=== PATIENT | female | born 1955 | race Caucasian/White ===

== ENCOUNTER 2023-08-13 07:37 | Day surgery (SDC) | payer MEDICARE, BC, SELFPAY ==
[2023-08-13] VITALS (23 sets, daily range): BP systolic 96–136; BP diastolic 52–90; PULSE 59–767; RESP 15–20; TEMP 35.8–36.8; O2SAT 90–100; BMI 23.3
[2023-08-13] MEDS: OXYCODONE (CR) 10 MG TAB.ER.12H PO (08:14)
[2023-08-13] MEDS: ACETAMINOPHEN 500 MG TABLET 1000 MG PO ×2 (08:14→15:44)
[2023-08-13] MEDS: SODIUM CHLORIDE 0.9 % (FLUSH) 10 ML SYRINGE IVF (08:30)
[2023-08-13] MEDS: LACTATED RINGERS 1000 ML 1,000 ML 100 ML IV ×2 (08:30→10:44)
[2023-08-13] MEDS: fentaNYL 100 MCG/2 ML inj IVP (09:13)
[2023-08-13] MEDS: MIDAZOLAM HCL 1 MG/ML inj IVP (09:13)
--- NOTE | 2023-08-13 09:22 | SUR.PREOP ---
TIME?OUT:?912 PT/RN/MDA?VERIFICATION?OF?SURGICAL?SITE,?PROCEDURE,?AND?CONSENT OBTAINED?PRIOR?TO?INVASIVE?PROCEDURE.
--- NOTE | 2023-08-13 09:28 | W.PM.H&PU ---
History & Physical Update History & Physical Update H&P Reviewed and patient assessed: No changes noted
[2023-08-13] MEDS: CEFAZOLIN 1 GM inj IVP (09:30)
--- NOTE | 2023-08-13 09:30 | XR_ITS ---
Patient: DOMINIC CHAVEZ Facility:?[facility] Patient ID:?[id number] Site Patient ID:?[id number]. Site :?[id number] Study:?XRay-Extremity Right KNEE 2V POST OP-08/13/2023 12:13:13 PM Ordering Physician:SHERON Final Report: Indication: POST OP Technique: Two views right knee Findings/Impression: Hardware from a right total knee arthroplasty is in satisfactory position. Bone alignment is normal. No sign of acute fracture. Postop changes are within normal limits. Dictated by Itz Almonte MD @ 08/13/2023 12:36:24 PM Signed by:?Itz Almonte MD @08/13/2023 12:36:24 PM (Electronic Signature)
[2023-08-13] MEDS: TRANEXAMIC ACID 100 MG/ML INJ 1000 MG IV (09:45)
--- NOTE | 2023-08-13 10:44 | W.PM.NB ---
Nerve Block Nerve Block Time Seen by Provider: 09:15 Date Seen: 08/13/23 Type of block requested by surgeon for post-operative analgesia: adductor canal Side: right Time out performed: Yes Verification of patient name: Yes Verification of date of : Yes Site marking: site marked Name of person performing procedure: Moises Continuous monitoring Was continuous monitoring of O2 sat, B/P, cardiac/vascular sonographer, recorded every 15 minutes?: Yes Procedure Checklist: sterile prep, needles and gloves Ultrasound guided. Images saved: Yes Medications given in 5ml increments after negative aspiration: Ropivicaine %: 0.5 mL: 20 Needle gauge: 20 Decadron (mg): 10 Precedex (mcg): 25 Patient tolerated procedure well: Yes Additional comments: Needle noted adjacent to nerve Block Charges Block Charge (with Pro Fee): Femoral Nerve Use of Ultrasound Machine for Block: Yes- US Guidance/pain block
--- NOTE | 2023-08-13 10:44 | W.PM.NB ---
Nerve Block Nerve Block Time Seen by Provider: 09:15 Date Seen: 08/13/23 Type of block requested by surgeon for post-operative analgesia: geniculars Side: right Time out performed: Yes Verification of patient name: Yes Verification of date of : Yes Site marking: site marked Name of person performing procedure: Moises Continuous monitoring Was continuous monitoring of O2 sat, B/P, cardiac cath technologist, recorded every 15 minutes?: Yes Procedure Checklist: sterile prep, needles and gloves Medications given in 5ml increments after negative aspiration: Ropivicaine %: 0.5 mL: 9 Needle gauge: 25 Patient tolerated procedure well: Yes Block Charges Block Charge (with Pro Fee): Genicular Nerve Block Use of Ultrasound Machine for Block: No
--- NOTE | 2023-08-13 11:11 | P.ORPRC_ITS ---
Procedure Note Date of procedure: 08/13/23 Procedure: PREOPERATIVE DIAGNOSIS: 1. Right knee osteoarthritis, primary, severe 2. Tobacco use POSTOPERATIVE DIAGNOSIS: 1. Right knee osteoarthritis, primary, severe 2. Tobacco use PROCEDURE: 1. Right total knee arthroplasty SURGEON: Alfredo Kenney MD. RISK ADJUSTMENT SPECIALIST: Colby ALARCON - Of note, a skilled floor covering printer assistant was critical for this case to aid in patient positioning, tissue retraction, limb manipulation/positioning, and closure. ANESTHESIA: Spinal anesthetic IMPLANTS: DePuy J&J all cemented TKA - Attune PS femur size 6 narrow, size 5 tibia, 5 poly spacer, 38 mm patella TOURNIQUET: 90 min at 300 torr EBL: 50 ml COMPLICATIONS: None evident INDICATIONS: The patient is a pleasant 67-year-old female who has experienced severe right knee pain and difficulty bearing weight. Workup included x-rays which revealed severe osteoarthrosis in the knee. Given the deformity, the dysfunction, and the pain, as well as the failure of nonoperative management, recommendation was made for surgery. FINDINGS: Full-thickness chondral loss diffusely throughout the right knee. The most severe was lateral compartment and secondarily medial and patellofemoral compartments. Large effusion upon entering joint. Pathologic popliteus tendon. Degenerative meniscus pathology both sides. Multiple loose bodies were seen. DESCRIPTION OF PROCEDURE: Following a thorough discussion of risks, benefits, and alternatives consent was obtained and the right knee was marked. The patient was brought to the operating room and placed supine on the operating table. Induction of anesthesia was undertaken. 2 g IV Ancef and 1 g tranexamic acid was administered within 1 hr of incision preoperatively. Proper time-out was performed identifying proper patient, site, procedure. The operative extremity was prepped and draped in the appropriate sterile fashion using ChloraPrep after the patient was positioned supine with all bony prominences well padded. A longitudinal, anterior, midline skin incision was made starting approximately 3cm proximal to the superior pole of the patella and advanced distal to the tibial tubercle. A median parapatellar arthrotomy was created. A medial subp eriosteal sleeve was created with knife, chaney elevator and curved osteotome. The retropatellar fatpad was resected and the synovium in the suprapatellar pouch excised to visualize the anterior femoral cortex. Femoral preparation was performed via an intramedullary guide. Step drill allowed access into the femoral canal. The distal cutting guide was placed with 6 ? of valgus and 11 mm cut on the distal femur. Femur was sized using a posterior referencing guide as well as assessing trans epicondylar access and Hope's line in 3? of external rotation. This found have a best fit with th e sizing noted above. The 4 in 1 cutting block was then placed, and the distal femur shaped accordingly. The box cut was then created and the trial implant inserted to confirm appropriate fit. We turned our attention to the proximal tibia. Extramedullary guide was utilized for cutting with the goal of being 90 degree cut from the mechanical axis of the tibia in the varus/valgus plane utilizing tibial crest as the primary alignment. Initially a 3 mm resection was performed from the medial tibial plateau. Ultimately, balancing was achieved in both flexion and extension in both varus and valgus. The knee was able to achieve full extension as well comfortably. The patella was initially measured and found have a thickness of 23 mm. It was resected back to approximately 14 mm. It was sized to be a best fit with as noted above. This was drilled, trial placed. All trials were placed and found to have an excellent stability and balance. At this stage, trial implants were removed, the knee was thoroughly irrigated with normal saline, and the cement was mixed. After irrigation, the knee was thoroughly dried, and cement placed, with the real tibial and femoral implants placed along with the patella. Trial poly spacer was placed and confirmed to have excellent range of motion and full extension, and the real poly spacer opened and inserted. All extra cement was removed, and a 3 min Betadine soak performed. Finally, a final irrigation round with normal saline was performed. Closure performed with 0 Vicryl and #0 Stratafix for the quad tendon/retinaculum. 2-0 Vicryl for the subcutaneous and 4-0 Stratafix for subcuticular closure. Dressings were applied and the patient was awoken from anesthesia after the tourniquet deflated and transferred the PACU in stable condition. A skilled floor covering printer assistant was critical for this case to aid in patient positioning, tissue retraction, bone exposure, limb manipulation/positioning, patient safety, and closure. PLAN: 1. Weight bear as tolerated operative extremity. 2. 23 hr perioperative antibiotics. 3. Ice. 4. PT/OT consults for ambulation assistance/mobility education. 5. Social work consult for discharge planning. 6. DVT prophylaxis with at SCDs, Bienvenido Hose, and aspirin twice daily.
--- NOTE | 2023-08-13 11:54 | W.ANESCHARGE ---
Anesthesia Charges Start Date/Time Anesthesia Start Date: 08/13/23 Anesthesia Start Time: 09:24 Stop Date/Time Anesthesia Stop Date: 08/13/23 Anesthesia Stop Time: 11:49
--- NOTE | 2023-08-13 12:22 | W.ANESCHARGE ---
Anesthesia Charges Start Date/Time Anesthesia Start Date: 08/13/23 Anesthesia Start Time: 09:24 Stop Date/Time Anesthesia Stop Date: 08/13/23 Anesthesia Stop Time: 11:49
--- NOTE | 2023-08-13 12:54 | P.IMCN_ITS ---
Date of Consult Patient: Zachary Patient Consult date: 08/13/23 Requesting Physician: Orthopedics Primary Care Provider: Melania Bishop, DO Consult Narrative Narrative: Shayy Hooker is a 67 year old female smoker admitted to the hospital for right total knee arthroplasty. Procedures performed on the day of admission by Dr. Kenney. There were no operative complications. Postoperatively she is feeling fine. She is having no pain and her spinal block appears to be in affect as she has no sensation or motion below the waist. She has no nausea or chills or dyspnea. Preoperatively she was doing well. She reports no problems identified on her preop physical. She had a normal electrocardiogram and a hemoglobin of 12.2. She has not had recent illness or injury. She does smoke at least a pack of cigarettes per day. She is no interested giving it up. She had would like to receive nicotine supplementation in the hospital until she can go home and smoke. She does not carry a diagnosis of COPD though likely has COPD. One and half years ago she had chest CT screening for lung cancer which was negative Review of Systems Narrative: She reports doing well other than her knee pain. No previous problems with anesthesia, bleeding, blood clots. Her chart indicates a allergy to cephalosporins. In reviewing this I note that many years ago she had hives from [facility]. She also received a sulfa medication with hives. Dilaudid caused nausea and vomiting [facility] Medical History (Updated 08/13/23 @ 13:05 by Eric Preciado MD) COPD (chronic obstructive pulmonary disease) ?J44.9 - Chronic obstructive pulmonary disease, unspecified (ICD-10) Multiple thyroid nodules ?E04.2 - Nontoxic multinodular goiter (ICD-10) Lumbar facet arthropathy ?M47.816 - Spondylosis without myelopathy or radiculopathy, lumbar region (ICD-10) Lumbosacral radiculopathy at S1 ?M54.17 - Radiculopathy, lumbosacral region (ICD-10) Pulmonary collapse ?J98.19 - Other pulmonary collapse (ICD-10) Surgical History History of appendectomy ?Z90.49 - Acquired absence of other specified parts of digestive tract (ICD- 10) S/P right knee arthroscopy ?Z98.890 - Other specified postprocedural states (ICD-10) H/O spinal fusion ?Z98.1 - Arthrodesis status (ICD-10) H/O: hysterectomy ?Z90.710 - Acquired absence of both cervix and uterus (ICD-10) History of lung surgery ?Z98.890 - Other specified postprocedural states (ICD-10) Family History (Updated 08/13/23 @ 13:01 by Eric Preciado MD) Mother Alcohol dependence Father Alcohol dependence Hodgkins disease Brother High blood pressure Social History (Updated 08/13/23 @ 13:02 by Eric Preciado MD) Narrative: She lives with her in [facility] in a mobile home. She has about 4 steps to get in and then lives on 1 level. She does have space for her to use a walker. Her is visiting and is in a wheelchair himself. She works at [employer]. She smokes at least a pack of cigarettes a day. She does not drink alcohol. No recreational drug use. What is your current living situation?: I presently have a place to live Problems where you live: no known problems In the past 12 months, utilities in danger of being shut off: no In past 12 months, lack of transportation kept you from medical appts, meetings, work, or getting things needed for daily living: no In the past 12 mos, have been you worried that your food would run out before you had money to buy more?: never true In the past 12 mos, the food you bought just didn't last and you didn't have money to buy more?: never true Smoking Status: Current every day smoker What tobacco products do you use: cigarettes Smoking packs per day: 1 Smoking cigarettes per day: 20.0 Years smoked: 51 Smoking pack-years: 51.00 Do you use any of these nicotine containing products: None Second hand tobacco smoke exposure: Yes How often do you have a drink containing alcohol: never How often do you have six or more drinks on one occasion: Never AUDIT-C Alcohol total score: 0 Non-prescribed substance use: denies use How often does anyone, including family, friends and others, physically hurt you : never How often does anyone, including family, friends and others, insult or talk down to you: never How often does anyone, including family, friends and others, threaten you with harm: never How often does anyone, including family, friends and others, scream or curse at you: never Are you using contraception or practicing any form of control: No service: No Meds Home Medications and Allergies Home Medications Medication Instructions Recorded Confirmed Type metoprolol succinate 100 mg 100 mg PO DAILY 07/22/23 08/13/23 History tablet,extended release 24 hr Home Medication Comments: She took metoprolol 100 mg the morning of surgery Allergies Allergy/AdvReac Type Severity Reaction Status Date / Time Sulfa (Sulfonamide Allergy Severe Hives Verified 08/13/23 08:37 Antibiotics) hydromorphone [From Dilaudid] Allergy Intermediate Vomiting Verified 08/13/23 08:37 Cephalosporins Allergy Mild Verified 07/22/23 13:01 Allergies/Adverse Reaction Comments: Many years ago had hives from [facility]. No other cephalosporin allergy Exam 2 Narrative: Exam Narrative: She is alert and appears in no distress. Eyes normal. Oropharynx normal. Neck is supple without mass or adenopathy. Respirations with decreased breath sounds. No wheezing rales rhonchi. Cardiovascular: S1, S2, regular rate and rhythm. No murmur gallop or rub. Abdomen: Bowel sounds active. Abdomen is soft without tenderness or mass. Right knee with mild swelling. Bandage without drainage on the dressing. Distally she has absent sensation and motion due to her spinal block. Feet are warm to touch and good pedal pulses Const: Vital Signs, click to edit/add: Vital Signs - 24 hr 08/13/23 07:48 08/13/23 09:13 08/13/23 09:17 Temperature 98.2 F Pulse Rate 80 75 75 Respiratory Rate 16 16 16 Blood Pressure 124/88 128/77 120/74 Pulse Oximetry 97 99 97 Oxygen Delivery Me thod Room Air Nasal Cannula Nasal Cannula Oxygen Flow Rate 2 2 08/13/23 09:20 08/13/23 11:48 08/13/23 11:50 Temperature 97.8 F Pulse Rate 71 76 77 Respiratory Rate 16 18 18 Blood Pressure 120/71 96/52 L 97/70 Pulse Oximetry 95 95 Oxygen Delivery Me thod Nasal Cannula Room Air Room Air Oxygen Flow Rate 2 08/13/23 11:55 08/13/23 12:00 08/13/23 12:05 Temperature 96.8 F L Pulse Rate 767 H 71 68 Respiratory Rate 18 15 18 Blood Pressure 105/69 96/73 112/67 Pulse Oximetry 100 95 94 Oxygen Delivery Me thod Room Air Room Air Room Air Oxygen Flow Rate 08/13/23 12:10 08/13/23 12:20 08/13/23 12:30 Temperature 96.8 F L 96.5 F L Pulse Rate 75 69 76 Respiratory Rate 18 18 18 Blood Pressure 105/72 125/62 102/73 Pulse Oximetry 97 96 94 Oxygen Delivery Me thod Room Air Room Air Room Air Oxygen Flow Rate 2 08/13/23 12:51 Temperature Pulse Rate 72 Respiratory Rate 18 Blood Pressure 108/69 Pulse Oximetry 92 Oxygen Delivery Me thod Room Air Oxygen Flow Rate Documenting provider has reviewed patient's vital signs: yes Assessment and Plan Assessment and plan (1) History of arthroplasty of right knee: Problem comment: 08/13/2023. Dr. Kenney. No operative complications. Status: Acute (2) Tobacco use: Problem comment: x1-1.5 packs per day Status: Acute (3) COPD (chronic obstructive pulmonary disease): Problem comment: Not previously diagnosed but likely diagnosis. Monitor for respiratory complications postoperatively Status: Suspected Plan Patient is admitted for routine postoperative care, pain management, physical therapy. Will also need to monitor for respiratory complications related to longstanding smoking and likely COPD diagnosis. Total Time Spent Total Time Spent: Total time spent today is 40 minutes, 25 minutes in coordination of care discussing with patient and other providers postoperative care, rehab, pain management, smoking
[2023-08-13] MEDS: NICOTINE 21 MG PATCH 1 PATCH TRANSDERMA (13:04)
[2023-08-13] MEDS: LACTATED RINGERS 1000 ML 1,000 ML 75 ML IV (15:40)
[2023-08-13] MEDS: CEFAZOLIN 2 GM in 0.9 % SODIUM CHLORIDE Mini-bag 100 ML IVPB ×2 (15:44→23:33)
[2023-08-13] MEDS: OXYCODONE 5 MG TABLET PO ×4 (15:45→23:32)
--- NOTE | 2023-08-13 19:24 | PC.NURSE ---
End of Shift ([id number]): Patient pleasant and cooperative. Afebrile. Dressing to right knee C/D/I. CMS intact. Rating pain up to 5-6/10 and PRN Oxycodone given x2. Up to bathroom with chair with 1 assist, walker and gait belt. Tolerating regular diet with no nausea.
[2023-08-13] MEDS: LORazepam 0.5 MG TABLET PO (20:17)
[2023-08-13] MEDS: SENNOSIDES 1 TAB TABLET 2 TAB PO (20:17)
[2023-08-13] MEDS: ASPIRIN 81 MG TABLET EC PO (20:18)
[2023-08-14] MEDS: diphenhydrAMINE 50 MG/ML inj IVP (00:25)
[2023-08-14 03:00] VITALS: BP 149/84; PULSE 79; RESP 18; TEMP 36.4; O2SAT 91
[2023-08-14] MEDS: OXYCODONE 5 MG TABLET PO ×3 (04:12→07:26)
[2023-08-14] MEDS: ACETAMINOPHEN 500 MG TABLET 1000 MG PO (04:13)
[2023-08-14 06:16] LABS: Basophils Absolute Auto 0.01 K/uL (0.00-0.30); Basophils Percent Auto 0.1 % (0.0-3.0); Hemoglobin* 10.4 gm/dL (12.0-16.0); Immature Granulocytes Abs Auto 0.05 K/uL (0.00-0.30); Immature Granulocytes Pct Auto 0.5 %; Lymphocytes Percent Auto 14.8 % (20-44); Mean Corpuscular HGB Conc 33 gm/dL (32-36); Mean Corpuscular Hemoglobin 31 pg (26-34); Mean Corpuscular Volume 96 fL (80-100); Monocytes Percent Auto 12.8 % (0.0-11.0); Neutrophils Absolute Auto 6.84 K/uL (1.7-7.0); Neutrophils Percent Auto 71.8 % (42.0-72.0); Platelet Count* 343 K/uL (140-440); RDW Coefficient of Variation % 13.5 % (11.5-15.5); Red Blood Count 3.34 m/uL (4.00-5.20); White Blood Count* 9.53 K/uL (4.50-11.00)
[2023-08-14 06:36] LABS: Slide Review Reflex No
[2023-08-14 06:48] LABS: Potassium* 4.7 mmol/L (3.6-5.1); Sodium* 131 mmol/L (135-149)
[2023-08-14 06:51] LABS: Blood Urea Nitrogen* 20 mg/dL (7-30); Creatinine* 0.6 mg/dL (0.5-1.5); Est. Creatinine Clearance* 53.81; Estimated Glomerular Filt Rate 99 ml/min
[2023-08-14 07:00] VITALS: BP 148/97; PULSE 77; RESP 18; TEMP 36.4; O2SAT 88
--- NOTE | 2023-08-14 07:02 | P.ORPN_ITS ---
Subjective Subjective Time Seen by Provider: 06:45 Date Seen: 08/14/23 Principal diagnosis: Day 1 s/p right total knee arthroplasty Interval history: Shayy is doing well this morning resting comfortably in bed. C/o moderate right knee pain, ranks 6/10, that is well managed with Oxycodone, Tylenol and icing. Denies: chest pain, SOB, fever, chills, numbness distally. Admits to trace intermittent tingling distally. Denies BM postoperatively, but admits to flatulence. Patient has outpatient PT already scheduled to begin tomorrow. Ortho Exam Narrative Exam Narrative: Patient is alert and oriented x3. Patient is in no acute distress and converses without labored breathing. Patient is able to make decisions and demonstrates good insight. Patient is pleasant and cooperative. Affect is full range and appropriate for the circumstances. Active ice in use. Right knee exam: Incision/Dressing: Dressing appears clean and dry. No drainage present. Mepilex intact. Right knee appears moderately swollen but supple with no obvious erythema, fluctuance or excessive warmth. No ecchymosis or erythematous streaking. Warmth around the wound is appropriate. Ice is being utilized as needed. CMS: Intact distally with 2+ Dorsalis pedis and Posterior Tibial pulses. 5/5 motor strength dorsal and plantar flexion. Confirmed sensation distally. Intact straight leg raise. Calf: Bilateral calves are supple, with no swelling, pain, tenderness, erythema, discoloration or coolness to the touch. Const Vital Signs, click to edit/add: Vital Signs - 24 hr 08/13/23 07:48 08/13/23 09:13 08/13/23 09:17 Temperature 98.2 F Pulse Rate 80 75 75 Pulse Rate [Left Pulse Oximeter] Respiratory Rate 16 16 16 Blood Pressure 124/88 128/77 120/74 Blood Pressure [Right Arm] Pulse Oximetry 97 99 97 Oxygen Delivery Method Room Air Nasal Cannula Nasal Cannula Oxygen Flow Rate 2 2 08/13/23 09:20 08/13/23 11:48 08/13/23 11:50 Temperature 97.8 F Pulse Rate 71 76 77 Pulse Rate [Left Pulse Oximeter] Respiratory Rate 16 18 18 Blood Pressure 120/71 96/52 L 97/70 Blood Pressure [Right Arm] Pulse Oximetry 95 95 Oxygen Delivery Method Nasal Cannula Room Air Room Air Oxygen Flow Rate 2 08/13/23 11:55 08/13/23 12:00 08/13/23 12:05 Temperature 96.8 F L Pulse Rate 767 H 71 68 Pulse Rate [Left Pulse Oximeter] Respiratory Rate 18 15 18 Blood Pressure 105/69 96/73 112/67 Blood Pressure [Right Arm] Pulse Oximetry 100 95 94 Oxygen Delivery Method Room Air Room Air Room Air Oxygen Flow Rate 08/13/23 12:10 08/13/23 12:20 08/13/23 12:30 Temperature 96.8 F L 96.5 F L Pulse Rate 75 69 76 Pulse Rate [Left Pulse Oximeter] Respiratory Rate 18 18 18 Blood Pressure 105/72 125/62 102/73 Blood Pressure [Right Arm] Pulse Oximetry 97 96 94 Oxygen Delivery Method Room Air Room Air Room Air Oxygen Flow Rate 2 08/13/23 12:51 08/13/23 13:00 08/13/23 13:30 Temperature Pulse Rate 72 72 66 Pulse Rate [Left Pulse Oximeter] Respiratory Rate 18 20 18 Blood Pressure 108/69 107/72 127/71 Blood Pressure [Right Arm] Pulse Oximetry 92 95 92 Oxygen Delivery Method Room Air Room Air Room Air Oxygen Flow Rate 2 2 08/13/23 14:00 08/13/23 15:00 08/13/23 15:15 Temperature 96.9 F L Pulse Rate 59 L 71 Pulse Rate [Left Pulse Oximeter] Respiratory Rate 18 18 Blood Pressure 136/78 133/79 Blood Pressure [Right Arm] Pulse Oximetry 93 96 96 Oxygen Delivery Method Room Air Room Air Oxygen Flow Rate 08/13/23 16:00 08/13/23 17:00 08/13/23 18:05 Temperature Pulse Rate 80 74 68 Pulse Rate [Left Pulse Oximeter] Respiratory Rate 18 18 18 Blood Pressure 135/90 H 119/75 128/80 Blood Pressure [Right Arm] Pulse Oximetry 96 90 92 Oxygen Delivery Method Room Air Room Air Room Air Oxygen Flow Rate 2 08/13/23 19:00 08/13/23 23:00 08/13/23 23:00 Temperature 97.3 F L Pulse Rate Pulse Rate [Left Pulse Oximeter] 70 Respiratory Rate 18 18 Blood Pressure Blood Pressure [Right Arm] 121/73 Pulse Oximetry 93 91 Oxygen Delivery Method Room Air Oxygen Flow Rate 08/13/23 23:00 08/14/23 03:00 Temperature 96.7 F L 97.6 F Pulse Rate Pulse Rate [Left Pulse Oximeter] 70 79 Respiratory Rate 18 18 Blood Pressure Blood Pressure [Right Arm] 132/80 149/84 H Pulse Oximetry 91 91 Oxygen Delivery Method Room Air Room Air Oxygen Flow Rate Assessment and Plan Assessment and plan (1) History of arthroplasty of right knee: Problem details: DOS: 08/13/2023, Dr. Kenney. Status: Acute Assessment and Plan: Shayy is doing well postoperatively. Patient feels ready to be discharged and also feels well prepared to recovery at home with assistance from her . She is pleased she has her NICE ice machine and a wedge pillow at home waiting for her. All questions were answered in depth. Wound: ? Do not remove original dressing; we will remove this at first postop visit in 1 week. Only remove dressing if integrity is in question. ? No immersing wound in water; showering okay; light scrub with your hand and body soap, rinse, dab dry ? Sutures are under the skin, will dissolve; allow surgical glue to come off naturally; do not scrub the wound or apply ointments/lotions ? Call our office with any redness that streaks, excessive drainage from the wound, or wound gapping. Ice/Elevate: ? Ice as needed for swelling and discomfort (cryocuff or ice pack); elevate extremity frequently above the heart. Motion/Exercise: ? Weight bear as tolerated operative extremity (walker/cane for ambulation assistance as needed) ? Per PT/OT. Out patient PT scheduled to begin tomorrow. ? Straight leg raises daily: 1-2 sets of 10 reps Pain Medications: ? Oral narcotic as prescribed. Wean as tolerated. Additional acetaminophen and ibuprofen as needed. KRISTIN socks: ? Wear for 1 month, remove for 1 hour 3 times per day ? These are frustrating to take on/off, but are important for blood clot prevention for 1 month after surgery Blood Clot Prevention (DVT): ? Medication: 81 mg aspirin by mouth twice daily (1 month) Driving: ? Do not drive while taking narcotic pain medication ? Anticipate 4-6 weeks no driving if operative leg is driving leg Dental: ? No elective dental work for 6 months post-op. If there is an urgent/emergent dental need, contact our office for an antibiotic prescription. Smoking/Alcohol: ? Do not smoke; do no drink alcohol especially when taking postoperative oral narcotic medication Seek Care from you Primary Care Provider if you experience the following issues in the postoperative phase and beyond: ? Bacterial infections such as: pneumonia, bacterial skin infection (cellul itis), UTI, high fever, chills unrelated to the operative body part - call your primary care physician urgently for treatment in hopes to protect your health and the metal implant. Referrals: ? PT, OT per patient preference - evaluate treat total knee arthroplasty protocol (gait training, ROM, ADLs) Vaccines: ? No vaccines until 4-6 weeks postop Follow up: ? PA-C visit in 1 week with Shiv Steven PA-C. ? Ortho surgeon follow-up in 6 weeks; repeat radiographs three views operative knee If there are any acute concerns regarding your surgery, please call our orthopedic clinic ([phone])
[2023-08-14] MEDS: SENNOSIDES 1 TAB TABLET 2 TAB PO (08:36)
[2023-08-14] MEDS: METOPROLOL SUCCINATE (XL) 100 MG TAB PO (08:36)
[2023-08-14] MEDS: ASPIRIN 81 MG TABLET EC PO (08:36)
--- NOTE | 2023-08-14 10:09 | PC.NURSE ---
Discharge: Patient discharged home today at 1005 accompanied by spouse. Patient alert and oriented x4, VSS. Tolerating a reg diet and SBA with walker to BR. Patients IV removed intact, discharge instructions given and signed, patient verbalized understanding of instructions. Belongings sheet signed.
--- NOTE | 2023-08-14 12:15 | PC.SOCIAL ---
Discharge planning- Met with pt and discussed discharge plans. Pt has assistance at home and has no identified social work needs. Informed pt that she can follow up with social work as needed with any questions.
== END 2023-08-14 10:05 | disposition home or self-care (01) ==
LOC: OR 07:42 → MEDSURG 08:43
PROVIDERS: PCP Family Medicine; Visit Provider Orthopaedic Surgery Sports Medicine
PROC: (CPT 27447; principal; 2023-08-13 09:30)
DX: M17.11 Unilateral primary osteoarthritis, right knee (principal); G89.18 Other acute postprocedural pain; F17.210 Nicotine dependence, cigarettes, uncomplicated; J44.9 Chronic obstructive pulmonary disease, unspecified
CPT/HCPCS: 27447; 01402; 36415; 64447; 64454; 73560; 76942; 82565; 84132; 84295; 84520; 85025; 97110; 97116; 97161; 97165; 97530; 97535; A9270; C1776; J0690; J1100; J1200; J2250; J2371; J2405; J2704; J2795; J3010; J7120; S4990

== ENCOUNTER 2023-09-15 14:28 | Emergency (ER) | payer MEDICARE, BC, SELFPAY ==
[2023-09-15 14:37] VITALS: BP 149/89; PULSE 102; RESP 18; TEMP 36.9; O2SAT 97; BMI 22.0
--- NOTE | 2023-09-15 14:43 | US_ITS ---
Patient: DOMINIC CHAVEZ Facility:?[facility] Patient ID:?[id number] Site Patient ID:?[id number]. Site :?[id number] Study:?US-Extremity Right LEV RT-09/15/2023 3:18:24 PM Ordering Physician:?MICHELLE PONCE Final Report: INDICATION: Leg pain and swelling. TECHNIQUE: Ultrasound venous duplex lower right extremity. Compression venous exam was performed using smith-scale, color Doppler, and spectral Doppler analysis. COMPARISON: None. FINDINGS: Deep veins: Sonographic imaging demonstrates the right common femoral, deep femoral, superficial femoral, popliteal, posterior tibial and the contralateral left common femoral veins to be fully compressible with normal color Doppler blood flow. Superficial veins: Greater saphenous vein is fully compressible. No popliteal cyst. IMPRESSION: No DVT in the right lower extremity. Dictated by Hallie Daugherty MD @ 09/15/2023 3:32:04 PM Signed by:?Hallie Daugherty MD @09/15/2023 3:32:04 PM (Electronic Signature)
--- NOTE | 2023-09-15 15:39 | ED_ITS ---
HPI - General Adult General Date Seen: 09/15/23 Chief complaint: Lower Extremity Swelling Stated complaint: R leg possible blood clot Time Seen by Provider: 09/15/23 14:47 Source: patient Mode of arrival: ambulatory Limitations: no limitations History of Present Illness HPI narrative: Patient is a 67-year-old female presenting for right lower extremity swelling. She had right knee replacement done 4 weeks ago and has been doing all her physical therapy as directed. States the knee has been doing well but she has noticed since 3 days ago right lower extremity swelling and pain in her right calf. Initially they does had her elevate the leg to see if that helps with the swelling in with swelling not improving her physical therapist was concerned and told her to get an ultrasound for possible DVT. Patient has no history of blood clots. Denies fevers, chills, weakness, headache, vision changes chest pain, shortness of breath. No other concerns noted at this time Related Data Home Medications Medication Instructions Recorded Confirmed metoprolol succinate 100 mg 100 mg PO DAILY 07/22/23 09/15/23 tablet,extended release 24 hr Previous Rx's Medication Instructions Recorded acetaminophen 500 mg tablet 500 - 1,000 mg (1 - 2 x 500 mg) PO 08/13/23 Q4-6H PRN #100 tabs aspirin 81 mg tablet,delayed 81 mg PO BID 30 days #60 tabs 08/13/23 release sennosides 8.6 mg tablet (Senna 8.6 - 17.2 mg (1 - 2 x 8.6 mg) PO 08/13/23 Lax) BID PRN Constipation #30 tabs oxycodone 5 mg tablet 2.5 - 10 mg (0.5 - 2 x 5 mg) PO 08/22/23 Q4-6H PRN pain #25 tabs Allergies Allergy/AdvReac Type Severity Reaction Status Date / Time Sulfa (Sulfonamide Allergy Severe Hives Verified 09/15/23 14:41 Antibiotics) hydromorphone [From Dilaudid] Allergy Intermediate Vomiting Verified 09/15/23 14:41 Cephalosporins Allergy Mild Verified 09/15/23 14:41 Review of Systems Status of ROS: Reports: 10 or more systems reviewed and unremarkable except as noted in History and below [facility] Medical History COPD (chronic obstructive pulmonary disease) ?J44.9 - Chronic obstructive pulmonary disease, unspecified (ICD-10) Multiple thyroid nodules ?E04.2 - Nontoxic multinodular goiter (ICD-10) Lumbar facet arthropathy ?M47.816 - Spondylosis without myelopathy or radiculopathy, lumbar region (ICD-10) Lumbosacral radiculopathy at S1 ?M54.17 - Radiculopathy, lumbosacral region (ICD-10) Pulmonary collapse ?J98.19 - Other pulmonary collapse (ICD-10) Surgical History History of appendectomy ?Z90.49 - Acquired absence of other specified parts of digestive tract (ICD- 10) S/P right knee arthroscopy ?Z98.890 - Other specified postprocedural states (ICD-10) H/O spinal fusion ?Z98.1 - Arthrodesis status (ICD-10) H/O: hysterectomy ?Z90.710 - Acquired absence of both cervix and uterus (ICD-10) History of lung surgery ?Z98.890 - Other specified postprocedural states (ICD-10) Family History Mother Alcohol dependence Father Alcohol dependence Hodgkins disease Brother High blood pressure Social History Narrative: She lives with her in [facility] in a mobile home. She has about 4 steps to get in and then lives on 1 level. She does have space for her to use a walker. Her is visiting and is in a wheelchair himself. She works at [employer]. She smokes at least a pack of cigarettes a day. She does not drink alcohol. No recreational drug use. What is your current living situation?: I presently have a place to live Problems where you live: no known problems In the past 12 months, utilities in danger of being shut off: no In past 12 months, lack of transportation kept you from medical appts, meetings, work, or getting things needed for daily living: no In the past 12 mos, have been you worried that your food would run out before you had money to buy more?: never true In the past 12 mos, the food you bought just didn't last and you didn't have money to buy more?: never true Smoking Status: Current every day smoker What tobacco products do you use: cigarettes Smoking packs per day: 1 Smoking cigarettes per day: 20.0 Years smoked: 51 Smoking pack-years: 51.00 Do you use any of these nicotine containing products: None Second hand tobacco smoke exposure: Yes How often do you have a drink containing alcohol: never How often do you have six or more drinks on one occasion: Never AUDIT-C Alcohol total score: 0 Non-prescribed substance use: denies use How often does anyone, including family, friends and others, physically hurt you : never How often does anyone, including family, friends and others, insult or talk down to you: never How often does anyone, including family, friends and others, threaten you with harm: never How often does anyone, including family, friends and others, scream or curse at you: never Are you using contraception or practicing any form of control: No service: No Exam Narrative: Exam Narrative: Const: Well-nourished, Well-developed, in no distress Eyes: PERRL, no conjunctival injection, and symmetrical lids HENT: Atraumatic external nose and ears. Moist mucous membranes. Neck: Symmetric, trachea midline, No thyromegaly. CVS: RRR, No murmurs or gallops. Peripheral pulses 2+ and equal in all extremities, +1 edema noted to right lower extremity RESP: Unlabored respiratory effort. Clear to auscultation bilaterally. GI: Nontender/Nondistended, No rebound or guarding. MSK:Extremities w/o deformity, Normal Active ROM, tenderness to right calf Skin: Warm, Dry. No rashes or lesions. Neuro: Normal Muscle tone, No focal neurological deficits. Psych: Awake, Alert, & Oriented x3. Appropriate mood and affect. Const: Vital Signs, click to edit/add: Vital Signs - 24 hr 09/15/23 14:37 Temperature 98.4 F Pulse Rate [Pulse Oximeter] 102 H Respiratory Rate 18 Blood Pressure [Ri ght Upper Arm] 149/89 H Pulse Oximetry 97 Oxygen Delivery Me thod Room Air Course Vital Signs Vital signs: Initial Vital Signs Temperature 98.4 F 09/15/23 14:37 Temperature Source Temporal Artery Scan 09/15/23 14:37 Pulse Rate 102 H 09/15/23 14:37 Respiratory Rate 18 09/15/23 14:37 Blood Pressure 149/89 H 09/15/23 14:37 Blood Pressure Mean 109 H 09/15/23 14:37 Blood Pressure Position Sitting 09/15/23 14:37 Pulse Oximetry 97 09/15/23 14:37 Oxygen Delivery Method Room Air 09/15/23 14:37 Vital Signs Temperature 98.4 F 09/15/23 14:37 Pulse Rate 102 H 09/15/23 14:37 Respiratory Rate 18 09/15/23 14:37 Blood Pressure 149/89 H 09/15/23 14:37 Pulse Oximetry 97 09/15/23 14:37 Oxygen Delivery Method Room Air 09/15/23 14:37 Temperature 98.4 F 09/15/23 14:37 Pulse Rate 102 H 09/15/23 14:37 Respiratory Rate 18 09/15/23 14:37 Blood Pressure 149/89 H 09/15/23 14:37 Pulse Oximetry 97 09/15/23 14:37 Oxygen Delivery Method Room Air 09/15/23 14:37 Medical Decision Making MDM Narrative Medical decision making narrative: Patient is a 67 year female with concern for swelling to her right leg. There is concerned for DVT considering her recent surgery and leg swelling. No other concerns noted. No signs of PE as she is having no other symptoms. There is swelling seen to her right leg and ultrasound was ordered. Returned showing no signs of a DVT. She is otherwise doing well this is likely just edema resulting from her previous surgery. She will be discharged home she is agreeable to this plan Imaging Data Venous US: Attestation: I have reviewed the pertinent imaging results. Radiologist's impression: No DVT in the right lower extremity. Dictated by Hallie Daugherty MD @ 09/15/2023 3:32:04 PM Discharge Plan Discharge Prescriptions: No Action oxycodone 5 mg tablet 2.5 - 10 mg PO Q4-6H MDD 6 tabs per day PRN (Reason: pain) Qty: 25 0RF Rx Instructions: 2.5 mg for minimal pain. 5 mg moderate pain. 10 mg severe pain. metoprolol succinate 100 mg tablet extended release 24 hr 100 mg PO DAILY aspirin 81 mg tablet,delayed release (DR/EC) 81 mg PO BID 30 Days Qty: 60 0RF acetaminophen 500 mg tablet 500 - 1,000 mg PO Q4-6H PRNQty: 100 0RF Rx Instructions: Do not exceed 4,000 mg per day. sennosides [Senna Lax] 8.6 mg tablet 8.6 - 17.2 mg PO BID PRN (Reason: Constipation) Qty: 30 0RF Rx Instructions: Hold if experiencing loose stools.
[2023-09-15 16:02] VITALS: BP 149/89; PULSE 102; TEMP 36.9
== END 2023-09-15 15:50 | disposition home or self-care (01) ==
PROVIDERS: Emergency Provider Student in an Organized Health Care Education/Training Program; PCP Family Medicine
DX: R22.41 Localized swelling, mass and lump, right lower limb (principal)
CPT/HCPCS: 93971; 97110; 99282; 99283

== ENCOUNTER 2023-10-08 13:45 | Outpatient (RCR) | payer MEDICARE, BC, SELFPAY ==
--- NOTE | 2023-08-05 09:43 | PT.OPEX ---
PT [place] Outpatient Eval PT [facility] Outpatient Eval Start: 08/05/23 07:07 Freq: Status: Active Protocol: Document 08/05/23 09:38 CLPhyllis (Rec: 08/05/23 09:43 CLK [id number]) E-signed By Diana Mccallum, PT Physical Therapy Outpatient Evaluation Insurance Information Recert Due Date 10/30/23 Insurance Information/Comments [employer] Patient Choice Medical Diagnosis Rt Knee OA Pre-Op for Scheduled Rt TKA 08/13/23 Treating Diagnosis Rt knee pain Impaired strength and endurance Rt LE Impaired strength and ease of functional activities Rt LE Referring MD Dr Alfredo Kenney Subjective Subjective Shayy reports having Rt knee pain for the past 25 years. She had a menisectomy back in 7th grade. It was ok for about 10 years, then pain started again. No injury. She is currently able to stand/walk for 8-9 hours per day at [employer], working up until the day before surgery. Hoping to only be off from work for 6 weeks. She lives with her in a mobile home. He has many physical issues: heart attack, COPD, depression , fibromyalgia. She does feel he will be able to support her needs, she has prepared many meals so he does not have to cook. 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 She is here this date for pre-op PT session with scheduled Rt TKA planned to be completed on 08/13/23. She arrived via IND ambulation without any AD. She presents with slightly widened Vandana and reduced heel strike/toe push off Rt LE, reduced WB Rt LE. Her AROM Rt knee is: 7-130 deg /Lt knee: 2-0-141 deg. Her mid patellar girth is: Rt 40 cm / Lt 36.5 cm . Her overall gross strength at Rt knee is 3 +/5 quad, 4/5 hamstring, 3+/5 hip EXT and ABD. She can sit to stand with use of UE's on chair arms, but significant reduction in initial WB in Rt LE. SLS Rt 2 seconds/ Lt 10+ seconds. She is present this date for pre-op education in wound care/self cares, gait/ stair education in use of WW and progression to SE Cane, Safety and fall prevention in the home and post-op exercise routine. Thank you for this referral Plan of Care Rehabilitation Potential Good Physical Therapy Goals One Pre-Op visit only, to complete the following goals: 1. Educate in proper use of WW and A/D stairs 2. Education in Post-Op HEP with HO 3. Educate in Home Safety/Fall prevention 4. Educate in Physical Activity, Lifestyle changes and home modifications. Coordination/Communication With Referral Source Treatment Plan/Direct Interventions Gait Training,Self-Care/Home Management,Therapeutic Exercises Frequency/Duration One visit only for Pre-Op education She will be seen by PT while in the hospital as well as post-op cares. New goals will be established at that time. She is scheduled for PT re- eval post/op on 08/15/23 Patient Will Be Discharged From Therapy Completion of LTG(s),Skills Plateau,Independent w/HEP, Independently Progressing Evaluation Billing Untimed Code Treatment Minutes 23 Complexity Moderate Certification Information Initial Certification Date 08/05/23 Ending Certification Date 10/30/23 Provider Signature Shows Agreement With POC & Medical Necessity Physician Signature & Date Requested Please Sign/Date Here Physician Comment/Change : Physician NPI Number #
== END 2023-10-15 17:01 | disposition home or self-care (01) ==
PROVIDERS: Visit Provider Orthopaedic Surgery Sports Medicine
DX: M17.11 Unilateral primary osteoarthritis, right knee (principal); Z96.651 Presence of right artificial knee joint; Z51.89 Encounter for other specified aftercare
CPT/HCPCS: 97110; 97116; 97140; 97162; 97164

== ENCOUNTER 2024-06-23 11:14 | Inpatient (IN) | payer MEDICARE, BC, SELFPAY ==
[2024-06-23] VITALS (11 sets, daily range): BP systolic 136–160; BP diastolic 76–105; PULSE 87–94; RESP 18–24; TEMP 36.6–37.4; O2SAT 87–96; BMI 23.6; BMI 22.8
--- NOTE | 2024-06-23 11:40 | CRLHL7_ITS ---
For Patients: As a result of the Century Cures Act, medical imaging exams and procedure reports are released immediately into your electronic medical record. You may view this report before your referring provider. If you have questions, please contact your health care provider. INDICATION: Cough COMPARISON: December 23, 2016 TECHNIQUE: Two views of the chest were acquired FINDINGS: TUBES AND LINES: None. HEART AND MEDIASTINUM: The heart size is normal. The mediastinal contour appears normal for patient age. LUNGS AND PLEURAL SPACES: Linear band of atelectasis or scarring in the right mid lung.The lungs are otherwise unremarkable. No pleural effusion or pneumothorax. OSSEOUS STRUCTURES: Age-appropriate appearance. No acute focal finding. IMPRESSION: Band of atelectasis or scarring in the right mid lung. Otherwise unremarkable examination. Dictated by Bill Carlisle MD @ 06/28/2024 10:13:48 AM (Electronically Signed)
[2024-06-23 12:05] LABS: Basophils Percent Auto 0.2 % (0.0-3.0); Eosinophils Percent Auto 0.3 % (0.0-7.0); Hemoglobin* 11.8 gm/dL (12.0-16.0); Immature Granulocytes Pct Auto 0.5 %; Lymphocytes Percent Auto 10.9 % (20-44); Mean Corpuscular HGB Conc 34 gm/dL (32-36); Mean Corpuscular Hemoglobin 31 pg (26-34); Mean Corpuscular Volume 91 fL (80-100); Monocytes Percent Auto 10.6 % (0.0-11.0); Neutrophils Percent Auto 77.5 % (42.0-72.0); Platelet Count* 375 K/uL (140-440); RDW Coefficient of Variation % 13.1 % (11.5-15.5); Red Blood Count 3.86 m/uL (4.00-5.20); White Blood Count* 11.89 K/uL (4.50-11.00)
[2024-06-23] MEDS: METHYLPREDNISOLONE SOD SUCC 62.5 MG/ML (125) 125 MG IVP (12:08)
[2024-06-23] MEDS: IPRAT-ALBUT 0.5-2.5 MG/3 ML NEB 1 NEB IH ×3 (12:09→23:52)
[2024-06-23 12:18] LABS: Slide Review Reflex No
[2024-06-23 12:22] LABS: Chloride* 95 mmol/L (96-114); Sodium* 130 mmol/L (135-149)
[2024-06-23 12:23] LABS: Potassium* 3.3 mmol/L (3.6-5.1)
[2024-06-23 12:25] LABS: Anion Gap 7 mEq/L (7-15); Aspartate Amino Transferase* 50 U/L (12-35); Bilirubin Direct* 0.3 mg/dL (0.0-0.5); Bilirubin Total* 0.4 mg/dL (0.1-1.5); Carbon Dioxide* 28 mmol/L (20-32); Creatinine* 0.5 mg/dL (0.5-1.5); D Dimer Quantitative* 1.76 ug/ml (0.00-0.50); Est. Creatinine Clearance* 55.07; Estimated Glomerular Filt Rate 103 ml/min; Total Protein* 6.8 g/dL (6.0-8.3)
[2024-06-23 12:26] LABS: Alanine Aminotransferase* 47 U/L (4-35); Alkaline Phosphatase* 84 U/L (40-150); Blood Urea Nitrogen* 17 mg/dL (7-30); Calcium* 8.9 mg/dL (8.4-10.6); Glucose* 120 mg/dL (60-115)
[2024-06-23 12:28] LABS: C Reactive Protein* 7.1 mg/dL (0.5-1.0)
--- NOTE | 2024-06-23 12:28 | ED_ITS ---
HPI - General Adult General Date Seen: 06/23/24 Chief complaint: Shortness of Breath/Dyspnea Stated complaint: sick for 1 week, lung pain and weakness Time Seen by Provider: 06/23/24 11:30 History of Present Illness HPI narrative: Patient is a 68-year-old woman who presents for evaluation of a week of cough and cold symptoms. She has not felt significantly short of breath but she has been fatigued. Present urgent care, found to be mildly hypoxic and sent here for further evaluation. She does have a history of COPD, denies any medications for that. She is not on home oxygen. She is fairly active, has a job, functions without difficulty. No ill contacts that she is aware of. She has not had fever, denies chest pain, unusual leg pain or swelling vomiting, diarrhea, black or bloody stools or other complaints. She is not anticoagulated. Continues to smoke, no significant alcohol use. Related Data Home Medications ?Medication ?Instructions ?Recorded ?Confirmed metoprolol succinate 100 mg 100 mg PO DAILY 07/22/23 06/23/24 tablet,extended release 24 hr atorvastatin 20 mg tablet 20 mg PO DAILY 05/18/24 06/23/24 clobetasol 0.05 % topical ointment 1 applic topical BID PRN 05/18/24 06/23/24 multivitamin 1 tab PO QAM 06/23/24 06/23/24 Allergies Allergy/AdvReac Type Severity Reaction Status Date / Time Sulfa (Sulfonamide Allergy Severe Hives Verified 06/23/24 10:33 Antibiotics) hydromorphone (From Dilaudid) Allergy Intermediate Vomiting Verified 06/23/24 10:33 Cephalosporins Allergy Mild Verified 06/23/24 10:33 Review of Systems Status of ROS: Reports: 10 or more systems reviewed and unremarkable except as noted in History and below [facility] Medical History Osteoporosis ?M81.0 - Age-related osteoporosis without current pathological fracture (ICD- 10) COPD (chronic obstructive pulmonary disease) ?J44.9 - Chronic obstructive pulmonary disease, unspecified (ICD-10) Multiple thyroid nodules ?E04.2 - Nontoxic multinodular goiter (ICD-10) Lumbar facet arthropathy ?M47.816 - Spondylosis without myelopathy or radiculopathy, lumbar region (ICD-10) Lumbosacral radiculopathy at S1 ?M54.17 - Radiculopathy, lumbosacral region (ICD-10) Pulmonary collapse ?J98.19 - Other pulmonary collapse (ICD-10) Surgical History History of appendectomy ?Z90.49 - Acquired absence of other specified parts of digestive tract (ICD- 10) S/P right knee arthroscopy ?Z98.890 - Other specified postprocedural states (ICD-10) H/O spinal fusion ?Z98.1 - Arthrodesis status (ICD-10) H/O: hysterectomy ?Z90.710 - Acquired absence of both cervix and uterus (ICD-10) History of lung surgery ?Z98.890 - Other specified postprocedural states (ICD-10) Family History Mother Alcohol dependence Father Alcohol dependence Hodgkins disease Brother High blood pressure Social History Narrative: She lives with her in [facility] in a mobile home. She has about 4 steps to get in and then lives on 1 level. She does have space for her to use a walker. Her is visiting and is in a wheelchair himself. She works at [employer]. She smokes at least a pack of cigarettes a day. She does not drink alcohol. No recreational drug use. What is your current living situation?: I presently have a place to live Problems where you live: no known problems In the past 12 months, utilities in danger of being shut off: no In past 12 months, lack of transportation kept you from medical appts, meetings, work, or getting things needed for daily living: no In the past 12 mos, have been you worried that your food would run out before you had money to buy more?: never true In the past 12 mos, the food you bought just didn't last and you didn't have money to buy more?: never true Smoking Status: Current every day smoker What tobacco products do you use: cigarettes Smoking packs per day: 1 Smoking cigarettes per day: 20.0 Years smoked: 51 Smoking pack-years: 51.00 Do you use any of these nicotine containing products: None Second hand tobacco smoke exposure: Yes How often do you have a drink containing alcohol: never How often do you have six or more drinks on one occasion: Never AUDIT-C Alcohol total score: 0 Non-prescribed substance use: denies use How often does anyone, including family, friends and others, physically hurt you : never How often does anyone, including family, friends and others, insult or talk down to you: never How often does anyone, including family, friends and others, threaten you with harm: never How often does anyone, including family, friends and others, scream or curse at you: never Are you using contraception or practicing any form of control: No service: No Exam Narrative: Exam Narrative: Vital signs reviewed In general, alert, nontoxic Head: Normocephalic, atraumatic. Eyes: Sclera clear. Pupils equal and reactive. ENT: Mucous membranes moist. Neck: Supple without adenopathy. Heart: Regular rate and rhythm without murmur. Lungs: She has diffuse wheezes, coarse crackles. No increased work of breathing. Abdomen: Soft, nontender to palpation. Extremities: Well perfused, pulses intact. No significant edema. Neurologic: Alert, conversant. Speech fluent, face symmetric. Moves all extremities equally. Skin: Warm, dry well perfused. Affect: Normal. Const: Vital Signs, click to edit/add: Vital Signs - 24 hr 06/23/24 11:20 06/23/24 11:41 06/23/24 12:15 Temperature 97.8 F Pulse Rate [Pulse Oximeter] 94 94 Respiratory Rate 22 22 Blood Pressure [Ri ght Upper Arm] 136/76 Pulse Oximetry 88 96 94 Oxygen Delivery Me thod Room Air Nasal Cannula Nasal Cannula Oxygen Flow Rate 3 2 Documenting provider has reviewed patient's vital signs: yes Course Course ED Course: Overall presentations is suggestive of COPD exacerbation, bronchitis, consider pneumonia, viral infection, heart failure, arrhythmia, acute coronary syndrome. Chest x-ray ordered. Will give her a DuoNeb and some steroids, labs pending, EKG by my review showed a sinus rhythm, ventricular rate of 88. Computer is reading this as atrial fibrillation but I do think this is a sinus rhythm. No a cute ST segment changes. Significant baseline waver. Chest x-ray two view by my review is notable for changes consistent with COPD but no infiltrate, no pulmonary edema. Final radiology report is pending. Labs are notable for a mildly elevated white blood cell count of 11.9, hemoglobin is 11.8. Metabolic panel is notable for sodium of 130, potassium 3.3. BUN creatinine are normal, blood sugar 120. Mild elevations in transaminases with an AST of 50 and an ALT of 47 other LFTs normal. CRP is 7.1, BNP indeterminate at 6:35 a.m.. Viral swab remains pending. D-dimer is elevated at 1.76. CT of the chest recommended to evaluate for pulmonary embolism or occult pneumonia. Point care troponin is negative. We did pursue CT of the chest with contrast PE protocol. By my review no acute PE, no obvious consolidation. Final radiology report reviewed, no PE, tree-in-bud changes and diffuse bronchial thickening, no infiltrate, some mediastinal lymphadenopathy. I recommended admission to her. She does sound improved after DuoNeb, but she remains hypoxic. This is likely related to influenza a plus COPD. She is agreeable with admission for oxygen therapy and treatment of COPD. Vital Signs Vital signs: Initial Vital Signs Temperature 97.8 F 06/23/24 11:20 Temperature Source Temporal Artery Scan 06/23/24 11:20 Pulse Rate 94 06/23/24 11:20 Pulse Rhythm Regular 06/23/24 11:20 Respiratory Rate 22 06/23/24 11:20 Blood Pressure 136/76 06/23/24 11:20 Blood Pressure Mean 96 06/23/24 11:20 Pulse Oximetry 88 06/23/24 11:20 Oxygen Delivery Method Room Air 06/23/24 11:20 Vital Signs Temperature 97.8 F 06/23/24 11:20 Pulse Rate 94 06/23/24 11:20 Respiratory Rate 22 06/23/24 11:20 Blood Pressure 136/76 06/23/24 11:20 Pulse Oximetry 88 06/23/24 11:20 Oxygen Delivery Method Room Air 06/23/24 11:20 Temperature 97.8 F 06/23/24 11:20 Pulse Rate 94 06/23/24 11:41 Respiratory Rate 22 06/23/24 11:41 Blood Pressure 136/76 06/23/24 11:20 Pulse Oximetry 94 06/23/24 12:15 Oxygen Delivery Method Nasal Cannula 06/23/24 12:15 Oxygen Flow Rate 2 06/23/24 12:15 Medications Administered Medications: Discontinued Medications Generic Name Dose Route Start Last Admin Trade Name Leatha PRN Reason Stop Dose Admin Albuterol/Ipratropium 1 neb 06/23/24 11:39 06/23/24 12:09 Iprat-Albut 0.5-2.5 Mg/3 Ml Neb IH 06/23/24 11:40 1 neb ONCE ONE Administration Methylprednisolone Sodium Succinate 125 mg 06/23/24 11:39 06/23/24 12:08 Methylprednisolone Sod Succ 62.5 Mg/Ml (125) IVP 06/23/24 11:40 125 mg ONCE ONE Administration Medical Decision Making Lab Data Labs: Lab Results 06/23/24 06/23/24 Range/Units 11:40 13:15 WBC 11.89 H (4.50-11.00) K/uL RBC 3.86 L (4.00-5.20) m/uL Hgb 11.8 L (12.0-16.0) gm/dL Hct 35.0 (33.0-51.0) % MCV 91 (80-100) fL MCH 31 (26-34) pg MCHC 34 (32-36) gm/dL RDW Coeff of Reynaldo 13.1 (11.5-15.5) % Plt Count 375 (140-440) K/uL Neut % (Auto) 77.5 H (42.0-72.0) % Lymph % (Auto) 10.9 L (20-44) % Morrill % (Auto) 10.6 (0.0-11.0) % Eos % (Auto) 0.3 (0.0-7.0) % Baso % (Auto) 0.2 (0.0-3.0) % Neut # (Auto) 9.20 H (1.7-7.0) K/uL Lymph # (Auto) 1.30 (0.90-2.90) K/uL Morrill # (Auto) 1.30 H (0.00-0.90) K/UL Eos # (Auto) 0.00 (0.00-0.50) K/uL Baso # (Auto) 0.00 (0.00-0.30) K/uL Abs Immat Gran (auto) 0.10 (0.00-0.30) K/uL Imm/Tot Granulo (auto) 0.5 % D-Dimer Quant (PE/DVT) 1.76 H (0.00-0.50) ug/ml VBG pH 7.399 (7.32-7.43) VBG pCO2 48 (40-50) mmHG VBG pO2 < 30.1 (25-47) mmHG VBG HCO3 29 H (21-28) mmol/L Sodium 130 L (135-149) mmol/L Potassium 3.3 L (3.6-5.1) mmol/L Chloride 95 L (96-114) mmol/L Carbon Dioxide 28 (20-32) mmol/L Anion Gap 7 (7-15) mEq/L BUN 17 (7-30) mg/dL Creatinine 0.5 (0.5-1.5) mg/dL Estimated Creat Clear 55.07 Estimated GFR 103 ml/min Glucose 120 H (60-115) mg/dL Calcium 8.9 (8.4-10.6) mg/dL Total Bilirubin 0.4 (0.1-1.5) mg/dL Direct Bilirubin 0.3 (0.0-0.5) mg/dL AST 50 H (12-35) U/L ALT 47 H (4-35) U/L Alkaline Phosphatase 84 (40-150) U/L C-Reactive Protein 7.1 H (0.5-1.0) mg/dL NT-Pro-B Natriuret Pep 635 pg/mL Total Protein 6.8 (6.0-8.3) g/dL Albumin 4.0 (3.3-5.0) g/dL SARS-CoV-2 (PCR) Negative SARS-CoV-2 (Negative) Influenza Type A (PCR) POSITIVE PCR FLU A A (Negative) Influenza Type B (PCR) Negative PCR FLU B (Negative) RSV (PCR) Negative PCR RSV (Negative) POC Troponin I 0.01 (0.01-0.04) ng/ml Imaging Data CT scan - chest: Attestation: I have reviewed the pertinent imaging results. Radiologist's impression: Patient: Shayy Hooker MR#: [id number] : 1955 Acct:[id number] Loc: ED Service Date: 06/23/[address]: Ordering Physician: Nicole Ivan M.D. Date of Service: 06/23/24 Procedure(s): CT angio chest PE protocol Accession Number(s): [id number] cc: Nicole Ivan M.D.; Melania Bishop, DO~ For Patients: As a result of the Cures Act, medical imaging exams and procedure reports are released immediately into your electronic medical record. You may view this report before your referring provider. If you have questions, please contact your health care provider. INDICATION: Cough and hypoxia, elevated D-dimer. TECHNIQUE: CT chest PE was acquired with 100 cc Omnipaque 350 IV contrast. COMPARISON: None. FINDINGS: Pulmonary Arteries: No pulmonary emboli. No arterial dilation. Aorta: No aneurysm or ulcerating plaques. Heart: Heart size is normal. No pericardial effusion. Lungs: Moderate diffuse bronchial wall thickening throughout the lungs with multifocal tree-in-bud changes. Linear scarring or atelectasis in the right middle lobe and both lung bases. Postop resection changes medially in the right upper lobe. Pleura: No pleural effusions, pleural thickening, or pneumothorax. Diffuse esophageal wall thickening suggesting GERD. Lymph nodes/mediastinum: Mild middle mediastinal adenopathy with a precarinal lymph node measuring 1.8 x 1.3 by 1.7 centimeters. Mild right hilar adenopathy with a right hilar lymph node measuring 1.6 x 1.2 by 1.6 centimeters. Chest wall: No masses. Upper abdomen: Normal. Bones: Unremarkable for age. Impression: : 1. No pulmonary emboli. 2. Moderate diffuse bronchial wall thickening throughout both lungs. 3. Diffuse multifocal tree-in-bud changes consistent with infections which may be bacterial, viral, mycoplasma or fungal. 4. Diffuse esophageal wall thickening suggesting GERD. 5. Mild right hilar and right mediastinal adenopathy Please note that all CT scans at this facility use dose modulation, iterative reconstruction, and/or weight-based dosing when appropriate to reduce radiation dose to as low as reasonably achievable. Dictated by Keanu Reyes MD @ 06/23/2024 2:01:59 PM Discharge Plan Discharge Clinical Impression: Influenza A, COPD (chronic obstructive pulmonary disease), Hypoxic Patient Disposition: Admitted As Observation
[2024-06-23 12:40] LABS: NT Pro B Type NatriureticPept* 635 pg/mL
--- NOTE | 2024-06-23 12:46 | RESP.RT ---
Pt seen. On oxygen at 2.5L. Decreased to 1L, SPO2 92%. BBS mixed with Rhonchi Rales and some upper airway coarse wheezing. BS with fair aeration. 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 Pt reports smoking a pack per day. Not using any meds for COPD, never has per pt. would neb Q2 and keep SPO2 around 88-90%. Pt was on 3L and SPO2 94% Decreased to 1L at his time.
--- NOTE | 2024-06-23 12:51 | CRLHL7_ITS ---
For Patients: As a result of the Century Cures Act, medical imaging exams and procedure reports are released immediately into your electronic medical record. You may view this report before your referring provider. If you have questions, please contact your health care provider. INDICATION: Cough and hypoxia, elevated D-dimer. TECHNIQUE: CT chest PE was acquired with 100 cc Omnipaque 350 IV contrast. COMPARISON: None. FINDINGS: Pulmonary Arteries: No pulmonary emboli. No arterial dilation. Aorta: No aneurysm or ulcerating plaques. Heart: Heart size is normal. No pericardial effusion. Lungs: Moderate diffuse bronchial wall thickening throughout the lungs with multifocal tree-in-bud changes. Linear scarring or atelectasis in the right middle lobe and both lung bases. Postop resection changes medially in the right upper lobe. Pleura: No pleural effusions, pleural thickening, or pneumothorax. Diffuse esophageal wall thickening suggesting GERD. Lymph nodes/mediastinum: Mild middle mediastinal adenopathy with a precarinal lymph node measuring 1.8 x 1.3 by 1.7 centimeters. Mild right hilar adenopathy with a right hilar lymph node measuring 1.6 x 1.2 by 1.6 centimeters. Chest wall: No masses. Upper abdomen: Normal. Bones: Unremarkable for age. Impression: : 1. No pulmonary emboli. 2. Moderate diffuse bronchial wall thickening throughout both lungs. 3. Diffuse multifocal tree-in-bud changes consistent with infections which may be bacterial, viral, mycoplasma or fungal. 4. Diffuse esophageal wall thickening suggesting GERD. 5. Mild right hilar and right mediastinal adenopathy Please note that all CT scans at this facility use dose modulation, iterative reconstruction, and/or weight-based dosing when appropriate to reduce radiation dose to as low as reasonably achievable. Dictated by Keanu Reyes MD @ 06/23/2024 2:01:59 PM (Electronically Signed)
[2024-06-23 12:54] LABS: PCR FLU A POSITIVE PCR FLU A (Negative); PCR FLU B Negative PCR FLU B (Negative); PCR RSV Negative PCR RSV (Negative); SARS PCR* Negative SARS-CoV-2 (Negative)
[2024-06-23 12:57] LABS: Troponin, Point-of-Care* 0.01 ng/ml (0.01-0.04)
[2024-06-23 13:32] LABS: HCO3 VBG 29 mmol/L (21-28); PCO2 VBG 48 mmHG (40-50); PO2 VBG < 30.1 mmHG (25-47); pH VBG 7.399 (7.32-7.43)
--- NOTE | 2024-06-23 15:06 | P.IMHP_ITS ---
Hospitalist- H&P: HPI History of Present Illness Date Seen: 06/23/24 Chief complaint: sick for 1 week, lung pain and weakness Narrative: Shayy Hooker is a 68 year old female past medical history significant for current smoker, osteoarthritis, palpitations on a beta-marlyn is admitted to the medical floor from the ED for further management acute hypoxic respiratory failure in acute influenza a infection. Patient reports not feeling well for the past 6 days. Increasing shortness of breath. Coarse cough. Increasing weakness and lack of appetite. Denies headaches or dizziness. Denies recent fevers chills sweats. Denies chest pain or tightness. Denies abdominal pain. No nausea or vomiting. No diarrhea. No change in urination. Is up-to-date on her vaccinations. Active smoker, typically 1 PPD. She tells me her is also ill and is on his way to the ED now as well. Smoker. Wishes to be full code. PCP is Dr. Melania Bishop. Review of Systems Narrative: REVIEW OF SYSTEMS: Complete review of systems performed and negative unless otherwise stated in HPI or below. [facility] Medical History Osteopenia ?M85.80 - Other specified disorders of bone density and structure, unspecified site (ICD-10) Spontaneous pneumothorax ?J93.83 - Other pneumothorax (ICD-10) Palpitations ?R00.2 - Palpitations (ICD-10) Lichen sclerosus et atrophicus ?L90.0 - Lichen sclerosus et atrophicus (ICD-10) Angiodysplasia of colon ?K55.20 - Angiodysplasia of colon without hemorrhage (ICD-10) Depressive disorder ?F32.A - Depression, unspecified (ICD-10) Tobacco use disorder ?F17.200 - Nicotine dependence, unspecified, uncomplicated (ICD-10) Osteoporosis ?M81.0 - Age-related osteoporosis without current pathological fracture (ICD- 10) COPD (chronic obstructive pulmonary disease) ?J44.9 - Chronic obstructive pulmonary disease, unspecified (ICD-10) Multiple thyroid nodules ?E04.2 - Nontoxic multinodular goiter (ICD-10) Lumbar facet arthropathy ?M47.816 - Spondylosis without myelopathy or radiculopathy, lumbar region (ICD-10) Lumbosacral radiculopathy at S1 ?M54.17 - Radiculopathy, lumbosacral region (ICD-10) Pulmonary collapse ?J98.19 - Other pulmonary collapse (ICD-10) Surgical History History of appendectomy ?Z90.49 - Acquired absence of other specified parts of digestive tract (ICD- 10) S/P right knee arthroscopy ?Z98.890 - Other specified postprocedural states (ICD-10) H/O spinal fusion ?Z98.1 - Arthrodesis status (ICD-10) H/O: hysterectomy ?Z90.710 - Acquired absence of both cervix and uterus (ICD-10) History of lung surgery ?Z98.890 - Other specified postprocedural states (ICD-10) Family History Mother Alcohol dependence Father Alcohol dependence Hodgkins disease Brother High blood pressure Social History Narrative: She lives with her in [facility] in a mobile home. She has about 4 steps to get in and then lives on 1 level. She does have space for her to use a walker. Her is visiting and is in a wheelchair himself. She works at [employer]. She smokes at least a pack of cigarettes a day. She does not drink alcohol. No recreational drug use. What is your current living situation?: I presently have a place to live Problems where you live: no known problems Problems where you live details: none In the past 12 months, utilities in danger of being shut off: no In past 12 months, lack of transportation kept you from medical appts, meetings, work, or getting things needed for daily living: no In the past 12 mos, have been you worried that your food would run out before you had money to buy more?: never true In the past 12 mos, the food you bought just didn't last and you didn't have money to buy more?: never true Highest level of school completed/degree received: high school graduate Smoking Status: Current every day smoker What tobacco products do you use: cigarettes Smoking packs per day: 1 Smoking cigarettes per day: 20.0 Years smoked: 51 Smoking pack-years: 51.00 Do you use any of these nicotine containing products: None Second hand tobacco smoke exposure: Yes How often do you have a drink containing alcohol: never How often do you have six or more drinks on one occasion: Never AUDIT-C Alcohol total score: 0 Non-prescribed substance use: denies use Caffeine: Yes (coffee) How often does anyone, including family, friends and others, physically hurt you : never How often does anyone, including family, friends and others, insult or talk down to you: never How often does anyone, including family, friends and others, threaten you with harm: never How often does anyone, including family, friends and others, scream or curse at you: never Are you using contraception or practicing any form of control: No service: No Meds Home Medications and Allergies Home Medications ?Medication ?Instructions ?Recorded ?Confirmed ?Type metoprolol succinate 100 mg 100 mg PO DAILY 07/22/23 06/23/24 History tablet,extended release 24 hr atorvastatin 20 mg tablet 20 mg PO DAILY 05/18/24 06/23/24 History clobetasol 0.05 % topical ointment 1 applic topical BID PRN 05/18/24 06/23/24 History multivitamin 1 tab PO QAM 06/23/24 06/23/24 History Allergies Allergy/AdvReac Type Severity Reaction Status Date / Time Sulfa (Sulfonamide Allergy Severe Hives Verified 06/23/24 10:33 Antibiotics) hydromorphone (From Dilaudid) Allergy Intermediate Vomiting Verified 06/23/24 10:33 Cephalosporins Allergy Mild Verified 06/23/24 10:33 Exam Narrative: Exam Narrative: PHYSICAL EXAM General: Pleasant, conversant, NAD HEENT: Normocephalic, atraumatic, sclera white, EOMI, oral mucosa moist Cardiovascular: RRR, S1S2. No pitting edema Pulmonary: Coarse breath sounds throughout. Mild dyspnea Abdominal: Soft, nondistended, NTTP Neurological: Alert, answering questions appropriately, cranial nerves intact, no focal findings Extremities: No gross joint deformity or swelling. AROMI. Neurovascularly intact Skin: Warm, dry. Const: Vital Signs, click to edit/add: Vital Signs - 24 hr 06/23/24 11:20 06/23/24 11:41 06/23/24 12:15 Temperature 97.8 F Pulse Rate [Pulse Oximeter] 94 94 Respiratory Rate 22 22 Blood Pressure [Ri ght Upper Arm] 136/76 Pulse Oximetry 88 96 94 Oxygen Delivery Me thod Room Air Nasal Cannula Nasal Cannula Oxygen Flow Rate 3 2 Hospitalist - H&P: Result Labs Labs: Short CBC 06/23/24 Range/Units 11:40 WBC 11.89 H (4.50-11.00) K/uL Hgb 11.8 L (12.0-16.0) gm/dL Hct 35.0 (33.0-51.0) % Plt Count 375 (140-440) K/uL BMP 06/23/24 11:40 Sodium 130 L Potassium 3.3 L Chloride 95 L Carbon Dioxide 28 BUN 17 Creatinine 0.5 Glucose 120 H Calcium 8.9 Liver Function 06/23/24 Range/Units 11:40 Total Bilirubin 0.4 (0.1-1.5) mg/dL Direct Bilirubin 0.3 (0.0-0.5) mg/dL AST 50 H (12-35) U/L ALT 47 H (4-35) U/L Alkaline Phosphatase 84 (40-150) U/L Albumin 4.0 (3.3-5.0) g/dL Imaging CTA chest: Attestation: I have reviewed the pertinent imaging results. Radiologist's impression: Pulmonary Arteries: No pulmonary emboli. No arterial dilation. Aorta: No aneurysm or ulcerating plaques. Heart: Heart size is normal. No pericardial effusion. Lungs: Moderate diffuse bronchial wall thickening throughout the lungs with multifocal tree-in-bud changes. Linear scarring or atelectasis in the right middle lobe and both lung bases. Postop resection changes medially in the right upper lobe. Pleura: No pleural effusions, pleural thickening, or pneumothorax. Diffuse esophageal wall thickening suggesting GERD. Lymph nodes/mediastinum: Mild middle mediastinal adenopathy with a precarinal lymph node measuring 1.8 x 1.3 by 1.7 centimeters. Mild right hilar adenopathy with a right hilar lymph node measuring 1.6 x 1.2 by 1.6 centimeters. Chest wall: No masses. Upper abdomen: Normal. Bones: Unremarkable for age. Impression: : 1. No pulmonary emboli. 2. Moderate diffuse bronchial wall thickening throughout both lungs. 3. Diffuse multifocal tree-in-bud changes consistent with infections which may be bacterial, viral, mycoplasma or fungal. 4. Diffuse esophageal wall thickening suggesting GERD. 5. Mild right hilar and right mediastinal adenopathy Assessment and Plan Assessment and plan (1) Acute hypoxic respiratory failure: Problem comment: -oxygen saturation on-site per EMS low 80s, 88% in ED -CTA chest negative PE, moderate diffuse bronchial wall thickening, diffuse multifocal tree-in-bud changes consistent with infectious process -in setting of acute influenza A infection, active smoker, suspected undiagnosed COPD -VBG pH 7.399, pCO2 48, PO2 < 30, HC03 29 -mild leukocytosis, recheck in a.m., defer antibiotics for now pending further workup. CRP 7.1, recheck in a.m. -received DuoNeb in ED, methylprednisolone, currently requiring 2 L per nasal cannula -continue oxygen supplementation to maintain saturations 88-92%, weaning as able -schedule DuoNebs and albuterol nebs -incentive spirometry, aerobika, Mucinex -oral prednisone x5 day course -RT for pulmonary support -procalcitonin 0.08, magnesium 2.2, repeat VBG in a.m. ordered Status: Acute (2) Influenza A: Problem comment: -Tamiflu -management as above Status: Acute (3) COPD (chronic obstructive pulmonary disease): Problem comment: -I do not see this in her EMR. Quite likely undiagnosed given ongoing active smoker. Not oxygen dependent -management as above -outpatient follow-up with PCP for further workup, PFTs, management Status: Acute (4) Tobacco use disorder: Problem comment: -complicating above, discussed cessation Status: Acute (5) Palpitations: Problem comment: -continue metoprolol Status: Acute (6) Hyponatremia: Problem comment: -acute on chronic, sodium 130, previous 131. Monitor Status: Acute (7) Hypokalemia: Problem comment: -potassium 3.3, oral supplement 40 mEq, recheck in a.m. Status: Acute (8) Transaminitis: Problem comment: -AST 50, ALT 47, previously WNL. Recheck in a.m. Status: Acute Total Time Spent Total Time Spent: Total time spent caring for the patient today was 75 minutes. This includes time spent for the visit reviewing the chart, time spent during the visit, time spent after the visit and documentation and planning in coordination of care.
[2024-06-23 16:23] LABS: Magnesium* 2.2 mg/dL (1.5-2.6)
[2024-06-23] MEDS: POTASSIUM CHLORIDE 10 MEQ CAPSULE ER 40 MEQ PO (16:36)
[2024-06-23] MEDS: OSELTAMIVIR PHOSPHATE 75 MG CAPSULE PO (16:37)
[2024-06-23] MEDS: BENZONATATE 100 MG CAPSULE 200 MG PO (16:37)
[2024-06-23 16:41] LABS: Procalcitonin* 0.08 ng/mL (<0.50)
--- NOTE | 2024-06-23 18:15 | PC.NURSE ---
Addendum entered by Carmen Rodriguez RN 06/23/24 18:24: Patient denies pain. Tele=NSR. Original Note: End of Shift: Patient pleasant and cooperative, arrived to the floor about 1530. Patient hypertensive upon admission but vitally stable, lungs course/ Rhonchi, BS WNL, IV SL and intact. Patients cough is course and moist but with no sputum. Patient is currently on 2.4 L nasal cannula with sats at 88%. Patient urinated 400 upon admission and tolerating regular diet eating about 50% of dinner. Patient is independent but reports she will use the call light if she does not feel strong.
[2024-06-23] MEDS: ENOXAPARIN 40 MG/0.4 ML INJ SUBCUT (20:31)
[2024-06-23] MEDS: guaiFENesin 600 MG TAB.ER.12H 1200 MG PO (20:31)
[2024-06-23] MEDS: ALBUTEROL SULFATE 2.5 MG/3 ML VIAL.NEB NEB (20:31)
[2024-06-23] MEDS: SODIUM CHLORIDE 0.9 % (FLUSH) 10 ML SYRINGE 5 ML IVF (20:32)
[2024-06-24] VITALS (9 sets, daily range): BP systolic 130–154; BP diastolic 65–96; PULSE 69–118; RESP 20–24; TEMP 36.6–36.7; O2SAT 90–92
[2024-06-24] MEDS: NICOTINE 14 mg PATCH 1 PATCH TRANSDERMA (00:13)
[2024-06-24] MEDS: ALBUTEROL SULFATE 2.5 MG/3 ML VIAL.NEB NEB ×4 (03:11→21:22)
[2024-06-24] MEDS: ACETAMINOPHEN 325 MG TABLET 1000 MG PO ×2 (03:23→16:29)
[2024-06-24] MEDS: IPRAT-ALBUT 0.5-2.5 MG/3 ML NEB 1 NEB IH ×3 (06:02→23:59)
[2024-06-24 06:32] LABS: HCO3 VBG 26 mmol/L (21-28); PCO2 VBG 39 mmHG (40-50); PO2 VBG 33.6 mmHG (25-47); pH VBG 7.428 (7.32-7.43)
[2024-06-24 06:39] LABS: Hematocrit 34.4 % (33.0-51.0); Hemoglobin* 11.5 gm/dL (12.0-16.0); Mean Corpuscular HGB Conc 33 gm/dL (32-36); Mean Corpuscular Hemoglobin 30 pg (26-34); Mean Corpuscular Volume 91 fL (80-100); Platelet Count* 400 K/uL (140-440); Red Blood Count 3.78 m/uL (4.00-5.20)
[2024-06-24 06:46] LABS: Slide Review Reflex No
[2024-06-24 07:00] LABS: Chloride* 98 mmol/L (96-114)
[2024-06-24 07:01] LABS: Albumin* 3.8 g/dL (3.3-5.0); Sodium* 131 mmol/L (135-149)
[2024-06-24 07:02] LABS: Potassium* 3.7 mmol/L (3.6-5.1)
[2024-06-24 07:04] LABS: Alanine Aminotransferase* 39 U/L (4-35); Alkaline Phosphatase* 87 U/L (40-150); Anion Gap 7 mEq/L (7-15); Aspartate Amino Transferase* 35 U/L (12-35); Bilirubin Direct* 0.3 mg/dL (0.0-0.5); Bilirubin Total* 0.4 mg/dL (0.1-1.5); Blood Urea Nitrogen* 15 mg/dL (7-30); Carbon Dioxide* 26 mmol/L (20-32); Creatinine* 0.5 mg/dL (0.5-1.5); Est. Creatinine Clearance* 55.07; Estimated Glomerular Filt Rate 103 ml/min; Total Protein* 6.8 g/dL (6.0-8.3)
[2024-06-24 07:05] LABS: Calcium* 8.9 mg/dL (8.4-10.6); Glucose* 142 mg/dL (60-115)
[2024-06-24] MEDS: OSELTAMIVIR PHOSPHATE 75 MG CAPSULE PO ×2 (07:08→16:29)
[2024-06-24 07:28] LABS: C Reactive Protein* 12.8 mg/dL (0.5-1.0)
--- NOTE | 2024-06-24 07:43 | PC.NURSE ---
Pt alert and oriented x3. Afebrile. Pt is on 2.5 liters of oxygen via nasal cannula, attempted to titrate pt down to 2L pt O2 stats dropped to 83-85%. Pt is up ad pretty, voiding and reports ?I feel like my appetite is coming back.? Pt reports 8/10 headache, PRN Tylenol given with no relief, pt request coffee for headache with some relief. ???
--- NOTE | 2024-06-24 07:54 | PM.IMPN1 ---
Progress Note: A&P Assessment and plan (1) Acute hypoxic respiratory failure: Problem details: -stabilized on NC oxygen, oral steroids and tamiflu -nebs, mucinex Status: Acute (2) Influenza A: Problem details: -Tamiflu -management as above Status: Acute (3) COPD (chronic obstructive pulmonary disease): Problem details: -I do not see this in her EMR. Quite likely undiagnosed given ongoing active smoker. Not oxygen dependent -management as above -outpatient follow-up with PCP for further workup, PFTs, management Status: Acute (4) Tobacco use disorder: Problem details: -complicating above, discussed cessation Status: Acute (5) Transaminitis: Problem details: -AST 50, ALT 47, previously WNL. -improving Status: Acute (6) Hypokalemia: Problem details: -potassium 3.3, oral supplement 40 mEq, recheck in a.m. Status: Acute (7) Hyponatremia: Problem details: -acute on chronic, sodium 130, previous 131. Monitor Status: Acute (8) Palpitations: Problem details: -continue metoprolol Status: Acute (9) Depressive disorder: Status: Acute Subjective Date Seen: 06/24/24 Interval history: Daily Progress Note - Hospital Medicine Day #: 2 CC: FLU A; COPD FLARE 24 HOUR UPDATE: CBC reflects a mild uptake in the white blood cell count to 12.8 this morning. Hemoglobin is 11.5. Platelet count is 400. Blood gas normal this morning. No CO2 elevation. Sodium is a bit low at 131. Rest of her electrolytes and renal function are normal. Glucose 120. CRP is up trending. LFTs are downtrending. Procalcitonin is normal. No cultures. CTA on admission 1. No pulmonary emboli. 2. Moderate diffuse bronchial wall thickening throughout both lungs. 3. Diffuse multifocal tree-in-bud changes consistent with infections which may be bacterial, viral, mycoplasma or fungal. 4. Diffuse esophageal wall thickening suggesting GERD. 5. Mild right hilar and right mediastinal adenopathy Objective: looks aged/thin - mild to moderate tachypnea Vitals: see above Lungs: rhonchi; scattered wheeze Cardiac: S1S2. No edema. Disposition/Potential discharge - Home 1-2 days as she weans from oxygen and self-care. Today I spent 50minutes seeing the patient, reviewing Expanse and EPIC notes/diagnostics, discussing the care plan with our care time that includes social work, PT/OT, pharmacy, RT, penitentiary and documenting my impressions and plan in the medical record. Exam Const: Vital Signs, click to edit/add: Vital Signs - 24 hr 06/23/24 11:20 06/23/24 11:41 06/23/24 12:15 Temperature 97.8 F Pulse Rate Pulse Rate [Pulse Oximeter] 94 94 Respiratory Rate 22 22 Blood Pressure [Ri ght Arm] Blood Pressure [Ri ght Upper Arm] 136/76 Pulse Oximetry 88 96 94 Oxygen Delivery Me thod Room Air Nasal Cannula Nasal Cannula Oxygen Flow Rate 3 2 06/23/24 16:03 06/23/24 16:42 06/23/24 16:59 Temperature 99.3 F Pulse Rate 87 Pulse Rate [Pulse Oximeter] 90 Respiratory Rate 18 18 Blood Pressure [Ri ght Arm] 160/83 H Blood Pressure [Ri ght Upper Arm] Pulse Oximetry 90 92 Oxygen Delivery Me thod Nasal Cannula Nasal Cannula Oxygen Flow Rate 3 3 06/23/24 17:00 06/23/24 17:28 06/23/24 17:41 Temperature Pulse Rate Pulse Rate [Pulse Oximeter] Respiratory Rate 18 Blood Pressure [Ri ght Arm] Blood Pressure [Ri ght Upper Arm] Pulse Oximetry 90 87 L 89 Oxygen Delivery Me thod Nasal Cannula Room Air Nasal Cannula Oxygen Flow Rate 3 1.5 2.5 06/23/24 19:00 06/23/24 23:49 06/23/24 23:49 Temperature 98.9 F 97.9 F Pulse Rate Pulse Rate [Pulse Oximeter] 93 89 Respiratory Rate 24 20 20 Blood Pressure [Ri ght Arm] 139/105 H 151/93 H Blood Pressure [Ri ght Upper Arm] Pulse Oximetry 88 92 Oxygen Delivery Me thod Nasal Cannula Nasal Cannula Oxygen Flow Rate 2.5 2.5 06/24/24 02:37 06/24/24 03:11 Temperature 97.8 F Pulse Rate 69 Pulse Rate [Pulse Oximeter] 89 Respiratory Rate 22 Blood Pressure [Ri ght Arm] 148/88 H Blood Pressure [Ri ght Upper Arm] Pulse Oximetry 92 Oxygen Delivery Me thod Nasal Cannula Oxygen Flow Rate 2.5 Labs Labs: Laboratory Results - last 24 hr 06/23/24 06/23/24 06/23/24 11:40 13:15 15:53 WBC 11.89 H RBC 3.86 L Hgb 11.8 L Hct 35.0 MCV 91 MCH 31 MCHC 34 RDW Coeff of Reynaldo 13.1 Plt Count 375 Neut % (Auto) 77.5 H Lymph % (Auto) 10.9 L [place] % (Auto) 10.6 Eos % (Auto) 0.3 Baso % (Auto) 0.2 Neut # (Auto) 9.20 H Lymph # (Auto) 1.30 [place] # (Auto) 1.30 H Eos # (Auto) 0.00 Baso # (Auto) 0.00 Abs Immat Gran (auto) 0.10 Imm/Tot Granulo (auto) 0.5 D-Dimer Quant (PE/DVT) 1.76 H VBG pH 7.399 VBG pCO2 48 VBG pO2 < 30.1 VBG HCO3 29 H Sodium 130 L Potassium 3.3 L Chloride 95 L Carbon Dioxide 28 Anion Gap 7 BUN 17 Creatinine 0.5 Estimated Creat Clear 55.07 Estimated GFR 103 Glucose 120 H Calcium 8.9 Magnesium 2.2 Total Bilirubin 0.4 Direct Bilirubin 0.3 AST 50 H ALT 47 H Alkaline Phosphatase 84 C-Reactive Protein 7.1 H NT-Pro-B Natriuret Pep 635 Total Protein 6.8 Albumin 4.0 Procalcitonin 0.08 SARS-CoV-2 (PCR) Negative SARS-CoV-2 Influenza Type A (PCR) POSITIVE PCR FLU A A Influenza Type B (PCR) Negative PCR FLU B RSV (PCR) Negative PCR RSV Lab Acknowledgement Test Added POC Troponin I 0.01 06/24/24 06:22 WBC 12.80 H RBC 3.78 L Hgb 11.5 L Hct 34.4 MCV 91 MCH 30 MCHC 33 RDW Coeff of Reynaldo Plt Count 400 Neut % (Auto) Lymph % (Auto) [place] % (Auto) Eos % (Auto) Baso % (Auto) Neut # (Auto) Lymph # (Auto) [place] # (Auto) Eos # (Auto) Baso # (Auto) Abs Immat Gran (auto) Imm/Tot Granulo (auto) D-Dimer Quant (PE/DVT) VBG pH 7.428 VBG pCO2 39 L VBG pO2 33.6 VBG HCO3 26 Sodium 131 L Potassium 3.7 Chloride 98 Carbon Dioxide 26 Anion Gap 7 BUN 15 Creatinine 0.5 Estimated Creat Clear 55.07 Estimated GFR 103 Glucose 142 H Calcium 8.9 Magnesium Total Bilirubin 0.4 Direct Bilirubin 0.3 AST 35 ALT 39 H Alkaline Phosphatase 87 C-Reactive Protein 12.8 H NT-Pro-B Natriuret Pep Total Protein 6.8 Albumin 3.8 Procalcitonin SARS-CoV-2 (PCR) Influenza Type A (PCR) Influenza Type B (PCR) RSV (PCR) Lab Acknowledgement POC Troponin I
[2024-06-24] MEDS: ATORVASTATIN 10 MG TABLET 20 MG PO (08:44)
[2024-06-24] MEDS: METOPROLOL SUCCINATE (XL) 100 MG TAB PO (08:44)
[2024-06-24] MEDS: predniSONE 20 MG TABLET 40 MG PO (08:44)
[2024-06-24] MEDS: guaiFENesin 600 MG TAB.ER.12H 1200 MG PO ×2 (08:44→21:21)
[2024-06-24] MEDS: SODIUM CHLORIDE 0.9 % (FLUSH) 10 ML SYRINGE 5 ML IVF ×2 (09:00→21:35)
[2024-06-24 09:25] LABS: NT Pro B Type NatriureticPept* 1750 pg/mL
--- NOTE | 2024-06-24 19:58 | PC.NURSE ---
Nursing Care Hours: [id number] Pt this shift calm and cooperative. alert and oriented. Headache pain came back toward end of shift, treated wtih PO Tylenol. SOB and wheezing beginning of day. Once sitting up in chair and using IS, and PEP, breathing has slowed and become less labored. Spo2 decreased from 2.5 to 1.5L NC. Eating and drinking. Moist cough but not productive.
[2024-06-24] MEDS: SENNOSIDES/DOCUSATE TABLET 1 TAB PO (20:12)
[2024-06-24] MEDS: ENOXAPARIN 40 MG/0.4 ML INJ SUBCUT (21:21)
[2024-06-25] VITALS (7 sets, daily range): BP systolic 130–177; BP diastolic 79–100; PULSE 78–106; RESP 18–22; TEMP 36.6–37.1; O2SAT 85–90
[2024-06-25] MEDS: ALBUTEROL SULFATE 2.5 MG/3 ML VIAL.NEB NEB ×4 (03:21→21:18)
[2024-06-25] MEDS: ACETAMINOPHEN 325 MG TABLET 1000 MG PO (03:29)
[2024-06-25] MEDS: NICOTINE 14 mg PATCH 1 PATCH TRANSDERMA (03:30)
--- NOTE | 2024-06-25 05:51 | PC.NURSE ---
EVENT NOTE: Ply Cutter noted patient to be in A. Fib on the telemetry screen at 0510. EKG was obtained showing A. Fib RVR rate 119bpm. Dr. Arreola was called at 0522 and again at 0540. Pt converted back to NSR rate in the 70s at roughly [address] Arreola called back shortly after conversion. No new orders given at this time.
[2024-06-25] MEDS: IPRAT-ALBUT 0.5-2.5 MG/3 ML NEB 1 NEB IH ×3 (06:35→18:43)
[2024-06-25 06:49] LABS: HCO3 VBG 27 mmol/L (21-28); PCO2 VBG 45 mmHG (40-50); PO2 VBG 32.4 mmHG (25-47); pH VBG 7.384 (7.32-7.43)
[2024-06-25 07:09] LABS: Hematocrit 34.9 % (33.0-51.0); Hemoglobin* 11.7 gm/dL (12.0-16.0); Mean Corpuscular HGB Conc 34 gm/dL (32-36); Mean Corpuscular Hemoglobin 31 pg (26-34); Mean Corpuscular Volume 91 fL (80-100); Platelet Count* 483 K/uL (140-440); Red Blood Count 3.82 m/uL (4.00-5.20); White Blood Count* 15.57 K/uL (4.50-11.00)
[2024-06-25 07:14] LABS: Chloride* 99 mmol/L (96-114); Potassium* 3.5 mmol/L (3.6-5.1); Slide Review Reflex No; Sodium* 132 mmol/L (135-149)
[2024-06-25 07:17] LABS: Creatinine* 0.4 mg/dL (0.5-1.5); Est. Creatinine Clearance* 55.07; Estimated Glomerular Filt Rate 108 ml/min
[2024-06-25 07:18] LABS: Anion Gap 6 mEq/L (7-15); Blood Urea Nitrogen* 16 mg/dL (7-30); Carbon Dioxide* 27 mmol/L (20-32); Glucose* 102 mg/dL (60-115); Magnesium* 1.9 mg/dL (1.5-2.6)
[2024-06-25 07:20] LABS: C Reactive Protein* 6.7 mg/dL (0.5-1.0)
[2024-06-25] MEDS: predniSONE 20 MG TABLET 40 MG PO (07:55)
[2024-06-25] MEDS: OSELTAMIVIR PHOSPHATE 75 MG CAPSULE PO ×2 (07:55→21:37)
--- NOTE | 2024-06-25 08:00 | CRLHL7_ITS ---
For Patients: As a result of the Cures Act, medical imaging exams and procedure reports are released immediately into your electronic medical record. You may view this report before your referring provider. If you have questions, please contact your health care provider. INDICATION: : flu A; f/u CXR COMPARISON: CTA chest on June 23, 2024 TECHNIQUE: Two view(s) of the chest FINDINGS/IMPRESSION: The cardiomediastinal silhouette and pulmonary vasculature are unremarkable. There is no focal airspace consolidation, pleural effusion, or pneumothorax. Faint lower lung zone tiny airspace opacities, likely consistent with tree-in-bud nodularity seen on prior CT exam with trace posterior basal atelectasis. No displaced fractures. Dictated by Sanchez Apple MD @ 06/25/2024 9:34:19 AM (Electronically Signed)
--- NOTE | 2024-06-25 08:12 | PC.NURSE ---
End of shift note [id number]: Pt alert and oriented x3. Afebrile. Pt continues to have intermittent non-productive cough, with expiratory wheezing. At start of shift pt was 1.5L nasal cannula, around 0315 pt O2 stats dropped 84-85% with good waveform pt placed on 3L to maintain 88% and higher. Pt denies feeling any different or changes in feeling SBO, pt triggered assessment for sepsis, updated MD Arreola, no new orders given, continue plan of care. Pt then around 0500 pt tele showed a-fib with RVR, RN Christina called to updated MD Arreola, while this RN was in another room with a pt. While wait for MD call back pt flipped back into NSR 0540, around 5 minutes before MD Arreola called back. MD Arreola updated, no new orders given continuing plan of care, metoprolol in morning, and MD Munoz added Eliquis. Pt up ind in room, voiding, and tolerating a regular diet.
[2024-06-25] MEDS: guaiFENesin 600 MG TAB.ER.12H 1200 MG PO ×2 (10:04→21:17)
[2024-06-25] MEDS: METOPROLOL SUCCINATE (XL) 100 MG TAB PO (10:05)
[2024-06-25] MEDS: ATORVASTATIN 10 MG TABLET 20 MG PO (10:05)
[2024-06-25] MEDS: APIXABAN 5 MG TABLET PO ×2 (10:05→21:17)
[2024-06-25] MEDS: SODIUM CHLORIDE 0.9 % (FLUSH) 10 ML SYRINGE 5 ML IVF ×2 (11:45→21:18)
--- NOTE | 2024-06-25 17:31 | PM.IMPN1 ---
Progress Note: A&P Assessment and plan (1) Acute hypoxic respiratory failure: Problem details: -stabilized on NC oxygen, oral steroids and tamiflu -nebs, mucinex Status: Acute (2) Influenza A: Problem details: -Tamiflu -management as above Status: Acute (3) Atrial fibrillation with RVR: Problem details: -new diagnosis -echo planned for 06/26/2024 -seems to have converted quickly, currently sinus -no rate control was needed before she spontaneously converted -started anticoagulation with Eliquis 5 mg b.i.d. -recommend Zio patch and cardiology follow-up discharge Status: Acute (4) COPD (chronic obstructive pulmonary disease): Problem details: -I do not see this in her EMR. Quite likely undiagnosed given ongoing active smoker. Not oxygen dependent -management as above -outpatient follow-up with PCP for further workup, PFTs, management Status: Acute (5) Tobacco use disorder: Problem details: -complicating above, discussed cessation Status: Acute (6) Transaminitis: Problem details: -AST 50, ALT 47, previously WNL. -improving Status: Acute (7) Hypokalemia: Problem details: -potassium 3.3, oral supplement 40 mEq, recheck in a.m. Status: Acute (8) Hyponatremia: Problem details: -acute on chronic, sodium 130, previous 131. Monitor Status: Acute (9) Palpitations: Problem details: -continue metoprolol Status: Acute (10) Depressive disorder: Status: Acute Subjective Date Seen: 06/25/24 Interval history: Daily Progress Note - Hospital Medicine #: 2 CC: FLU A; COPD EXACERBATION, NEW AFIB WITH RVR 24 HOUR UPDATE: Two episodes of tachycardia above and beyond her sinus tach noted overnight; associated with desaturations and more oxygen. monitor and ECG showed afib with RVR (new dx). pt converted on her own before doc could get in room. Hemodynamically stable. Afebrile. Pulses been in the 90s or low 100s, regular most of the day. White count continues to up trend, patient is on steroids. Hemoglobin is stable. Platelets look a little more reactive at 43 this morning. Blood gases normal this morning. Chemistry show a mildly suppressed sodium with a normal glucose and a mildly depressed potassium. CRP is down trending. Follow-up chest x-ray There is no focal airspace consolidation, pleural effusion, or pneumothorax. Faint lower lung zone tiny airspace opacities, likely consistent with tree-in-bud nodularity seen on prior CT exam with trace posterior basal atelectasis. No cultures. CTA on admission 1. No pulmonary emboli. 2. Moderate diffuse bronchial wall thickening throughout both lungs. 3. Diffuse multifocal tree-in-bud changes consistent with infections which may be bacterial, viral, mycoplasma or fungal. 4. Diffuse esophageal wall thickening suggesting GERD. 5. Mild right hilar and right mediastinal adenopathy Objective: looks aged/thin - mild to moderate tachypnea Vitals: see above Lungs: better air exchange than yesteday; less wheezing Cardiac: S1S2. No edema. Disposition/Potential discharge - Home 1-2 days as she weans from oxygen and self-care. Today I spent 50minutes seeing the patient, reviewing Expanse and EPIC notes/diagnostics, discussing the care plan with our care time that includes social work, PT/OT, pharmacy, RT, detention and documenting my impressions and plan in the medical record. Exam Const: Vital Signs, click to edit/add: Vital Signs - 24 hr 06/24/24 19:00 06/24/24 23:51 06/24/24 23:51 Temperature 98.0 F 98.1 F Pulse Rate Pulse Rate [Pulse Oximeter] 80 84 Respiratory Rate 20 22 22 Blood Pressure [Le ft Arm] 144/75 H 154/96 H Pulse Oximetry 91 90 Oxygen Delivery Me thod Nasal Cannula Nasal Cannula Oxygen Flow Rate 1.5 1.5 06/25/24 03:16 06/25/24 04:22 06/25/24 07:00 Temperature 97.8 F 98.2 F Pulse Rate 78 Pulse Rate [Pulse Oximeter] 88 100 Respiratory Rate 22 20 Blood Pressure [Le ft Arm] 177/100 H 145/79 H Pulse Oximetry 85 L 88 Oxygen Delivery Me thod Nasal Cannula Nasal Cannula Oxygen Flow Rate 3 1 06/25/24 07:00 06/25/24 07:00 06/25/24 11:00 Temperature 98.8 F Pulse Rate 106 H Pulse Rate [Pulse Oximeter] 100 97 Respiratory Rate 20 18 Blood Pressure [Le ft Arm] 146/90 H Pulse Oximetry 90 Oxygen Delivery Me thod Room Air Oxygen Flow Rate 06/25/24 15:00 06/25/24 15:00 06/25/24 15:00 Temperature 98.4 F Pulse Rate 103 H Pulse Rate [Pulse Oximeter] 105 H 105 H Respiratory Rate 18 18 Blood Pressure [Le ft Arm] 130/82 Pulse Oximetry 90 Oxygen Delivery Me thod Nasal Cannula Oxygen Flow Rate 1 Labs Labs: Laboratory Results - last 24 hr 06/25/24 06:25 WBC 15.57 H RBC 3.82 L Hgb 11.7 L Hct 34.9 MCV 91 MCH 31 MCHC 34 Plt Count 483 H VBG pH 7.384 VBG pCO2 45 VBG pO2 32.4 VBG HCO3 27 Sodium 132 L Potassium 3.5 L Chloride 99 Carbon Dioxide 27 Anion Gap 6 L BUN 16 Creatinine 0.4 L Estimated Creat Clear 55.07 Estimated GFR 108 Glucose 102 Calcium 9.0 Magnesium 1.9 C-Reactive Protein 6.7 H
[2024-06-25] MEDS: POTASSIUM BICARB 25 MEQ EFFERVESCENT TAB PO ×2 (18:44→20:30)
--- NOTE | 2024-06-25 20:11 | PC.NURSE ---
Pt alert, oriented and vitally stable. Pt does get SOB upon exertion, though recovers quickly. Pt on 1L NC, tolerates well, sats remaining 88-90s. Wheeze and crackle noted upon auscultation. Cough is present though pt states no exporations. Pt prefers mask for nebs. On a regular diet and up independently. Pt appears to be resting, call light within reach.
[2024-06-26] VITALS (9 sets, daily range): BP systolic 155–166; BP diastolic 93–105; PULSE 83–113; RESP 17–23; TEMP 36.5–37.2; O2SAT 87–91
[2024-06-26] MEDS: IPRAT-ALBUT 0.5-2.5 MG/3 ML NEB 1 NEB IH ×5 (01:04→23:03)
[2024-06-26] MEDS: ALBUTEROL SULFATE 2.5 MG/3 ML VIAL.NEB NEB ×4 (03:32→20:38)
[2024-06-26 07:16] LABS: Hematocrit 34.3 % (33.0-51.0); Hemoglobin* 11.4 gm/dL (12.0-16.0); Mean Corpuscular HGB Conc 33 gm/dL (32-36); Mean Corpuscular Hemoglobin 31 pg (26-34); Mean Corpuscular Volume 92 fL (80-100); Platelet Count* 494 K/uL (140-440); Red Blood Count 3.74 m/uL (4.00-5.20); White Blood Count* 17.88 K/uL (4.50-11.00)
[2024-06-26 07:28] LABS: Chloride* 100 mmol/L (96-114); Potassium* 3.6 mmol/L (3.6-5.1); Sodium* 132 mmol/L (135-149)
[2024-06-26 07:31] LABS: Anion Gap 7 mEq/L (7-15); Blood Urea Nitrogen* 16 mg/dL (7-30); Calcium* 9.1 mg/dL (8.4-10.6); Carbon Dioxide* 25 mmol/L (20-32); Creatinine* 0.4 mg/dL (0.5-1.5); Est. Creatinine Clearance* 55.07; Estimated Glomerular Filt Rate 108 ml/min; Glucose* 120 mg/dL (60-115)
[2024-06-26 07:52] LABS: Slide Review Reflex No
--- NOTE | 2024-06-26 08:32 | PC.NURSE ---
Shift note ([id number]): Patient pleasant alert and oriented. Independent with ambulation. O2 sats dropped to the mid 70?s on 1 LPM after ambulating to the bathroom and back to bed during the night. O2 sats 85-91 on 1-2 LPM. Reported having gas discomfort in abdomen.??
[2024-06-26] MEDS: OSELTAMIVIR PHOSPHATE 75 MG CAPSULE PO ×2 (09:08→20:41)
[2024-06-26] MEDS: guaiFENesin 600 MG TAB.ER.12H 1200 MG PO ×2 (09:09→20:42)
[2024-06-26] MEDS: ATORVASTATIN 10 MG TABLET 20 MG PO (09:09)
[2024-06-26] MEDS: predniSONE 20 MG TABLET 40 MG PO (09:09)
[2024-06-26] MEDS: METOPROLOL SUCCINATE (XL) 100 MG TAB PO (09:09)
[2024-06-26] MEDS: APIXABAN 5 MG TABLET PO ×2 (09:09→20:42)
--- NOTE | 2024-06-26 09:19 | P.IMPN_ITS ---
Progress Note: A&P Assessment and plan (1) Acute hypoxic respiratory failure: Problem details: -stabilized on NC oxygen, oral steroids and tamiflu -nebs, mucinex -appreciate RT support Status: Acute (2) Influenza A: Problem details: -Tamiflu -management as above Status: Acute (3) Sinus tachycardia: Problem details: -acute illness, nebs, steroids, anxiety -echo 06/26 confirmed normal heart with hyperdynamic function noted (d/t sinus tach) Status: Acute (4) Atrial fibrillation with RVR: Problem details: -new diagnosis -echo planned for 06/26/2024 -seems to have converted quickly, currently sinus -no rate control was needed before she spontaneously converted -started anticoagulation with Eliquis 5 mg b.i.d. -recommend Zio patch and cardiology follow-up discharge Status: Acute (5) COPD (chronic obstructive pulmonary disease): Problem details: -I do not see this in her EMR. Quite likely undiagnosed given ongoing active smoker. Not oxygen dependent -management as above -outpatient follow-up with PCP for further workup, PFTs, management Status: Acute (6) Hypokalemia: Problem details: -potassium 3.3, oral supplement 40 mEq, recheck in a.m. Status: Acute (7) Hyponatremia: Problem details: -acute on chronic, sodium 130, previous 131. 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 remains in sinus tachycardia. Echo today (prelim report) shows hyperdynamic LV with EF of 80% and sinus tach. Sats drop to low to mid 80's with exertion, bounces back quickly. has been on 1L only in the last 24 hours. Hemodynamically stable. Afebrile. Pulses been in the 90s or low 100s, sinus/regular. White count continues to up trend, patient is on steroids. Hemoglobin is stable. Platelets look a little more reactive with platelets at 494 this morning. Blood gases normal; last checked 06/26. Chemistry show a mild hypnatremia. potassium is normal. CRP is down trending. No cultures. CTA on admission 1. No pulmonary emboli. 2. Moderate diffuse bronchial wall thickening throughout both lungs. 3. Diffuse multifocal tree-in-bud changes consistent with infections which may be bacterial, viral, mycoplasma or fungal. 4. Diffuse esophageal wall thickening suggesting GERD. 5. Mild right hilar and right mediastinal adenopathy Objective: looks aged/thin - mild to moderate tachypnea Vitals: see above Lungs: better air exchange than yesterday; less wheezing Cardiac: S1S2. No edema. Disposition/Potential discharge - Home 1-2 days as she weans from oxygen and self-care. Today I spent 50minutes seeing the patient, reviewing Expanse and EPIC notes/diagnostics, discussing the care plan with our care time that includes social work, PT/OT, pharmacy, RT, longterm and documenting my impressions and plan in the medical record. Exam Const: Vital Signs, click to edit/add: Vital Signs - 24 hr 06/25/24 11:00 06/25/24 15:00 06/25/24 15:00 Temperature 98.8 F 98.4 F Pulse Rate 103 H Pulse Rate [Pulse Oximeter] 97 105 H Respiratory Rate 18 18 Blood Pressure [Le ft Arm] 146/90 H 130/82 Pulse Oximetry 90 90 Oxygen Delivery Me thod Room Air Nasal Cannula Oxygen Flow Rate 1 06/25/24 15:00 06/25/24 19:00 06/25/24 23:00 Temperature Pulse Rate 83 Pulse Rate [Pulse Oximeter] 105 H 96 Respiratory Rate 18 20 Blood Pressure [Le ft Arm] 149/89 H Pulse Oximetry 90 Oxygen Delivery Me thod Nasal Cannula Oxygen Flow Rate 1 06/26/24 01:00 06/26/24 04:07 06/26/24 07:00 Temperature 98.7 F 98.7 F 98.9 F Pulse Rate Pulse Rate [Pulse Oximeter] 96 83 112 H Respiratory Rate 17 20 18 Blood Pressure [Le ft Arm] 157/104 H 166/93 H 158/102 H Pulse Oximetry 91 89 90 Oxygen Delivery Me thod Nasal Cannula Nasal Cannula Room Air Oxygen Flow Rate 1 1 Labs Labs: Laboratory Results - last 24 hr 06/26/24 06:30 WBC 17.88 H RBC 3.74 L Hgb 11.4 L Hct 34.3 MCV 92 MCH 31 MCHC 33 Plt Count 494 H Sodium 132 L Potassium 3.6 Chloride 100 Carbon Dioxide 25 Anion Gap 7 BUN 16 Creatinine 0.4 L Estimated Creat Clear 55.07 Estimated GFR 108 Glucose 120 H Calcium 9.1
[2024-06-26] MEDS: SODIUM CHLORIDE 0.9 % (FLUSH) 10 ML SYRINGE 5 ML IVF ×2 (09:52→20:42)
[2024-06-26] MEDS: POTASSIUM CHLORIDE 10 MEQ CAPSULE ER 20 MEQ PO (10:00)
--- NOTE | 2024-06-26 12:02 | RESP.RT ---
Patient sitting up in bed, Family in room, on 1 Lpm NC SaO2 91%, Oxygen flow stopped patient decreased to 84%, placed patient on 1/2 Lpm SaO2 88%. PEP with patient, good effort, promotes wet/moist productive cough, patient swallowed secretions. IS with patient used well good effort with float in middle, 1200 on scale. Patient current smoker, smoked since 17 y/o, no desire to quite. Patient BBS with slight inspiratory/expiratory wheeze noted, good air movement.
--- NOTE | 2024-06-26 18:58 | PC.NURSE ---
Pt alert, oriented and vitally stable, though slightly hypertensive. Pt on 1 L o2 throughout shift, sats above 85. Pt up ind. tolerates well. Pt on regular diet and tolerates well. Pt in chair, appears to be comfortable, call light within reach.
[2024-06-26] MEDS: MELATONIN 3 MG TABLET PO (20:41)
[2024-06-27 02:59] VITALS: BP 161/96; PULSE 99; RESP 20; TEMP 36.9; O2SAT 91
[2024-06-27] MEDS: ACETAMINOPHEN 500 MG TABLET 1000 MG PO (03:23)
[2024-06-27] MEDS: NICOTINE 14 mg PATCH 1 PATCH TRANSDERMA (03:28)
[2024-06-27 06:45] LABS: Basophils Percent Auto 0.1 % (0.0-3.0); Eosinophils Percent Auto 0.5 % (0.0-7.0); Hematocrit 34.3 % (33.0-51.0); Hemoglobin* 11.3 gm/dL (12.0-16.0); Lymphocytes Percent Auto 12.7 % (20-44); Mean Corpuscular HGB Conc 33 gm/dL (32-36); Mean Corpuscular Hemoglobin 30 pg (26-34); Mean Corpuscular Volume 92 fL (80-100); Monocytes Percent Auto 7.8 % (0.0-11.0); Neutrophils Percent Auto 77.9 % (42.0-72.0); Platelet Count* 470 K/uL (140-440); RDW Coefficient of Variation % 13.8 % (11.5-15.5); Red Blood Count 3.75 m/uL (4.00-5.20); White Blood Count* 16.65 K/uL (4.50-11.00)
[2024-06-27] MEDS: IPRAT-ALBUT 0.5-2.5 MG/3 ML NEB 1 NEB IH (06:50)
[2024-06-27 06:56] LABS: Chloride* 99 mmol/L (96-114); Sodium* 129 mmol/L (135-149)
[2024-06-27 06:58] LABS: Creatinine* 0.4 mg/dL (0.5-1.5); Est. Creatinine Clearance* 55.07; Estimated Glomerular Filt Rate 108 ml/min
[2024-06-27 06:59] LABS: Anion Gap 6 mEq/L (7-15); Blood Urea Nitrogen* 18 mg/dL (7-30); Calcium* 9.1 mg/dL (8.4-10.6); Carbon Dioxide* 24 mmol/L (20-32); Glucose* 97 mg/dL (60-115)
[2024-06-27 07:00] VITALS: BP 139/93; PULSE 107; PULSE 114; RESP 18; TEMP 36.9; O2SAT 90
[2024-06-27 07:06] LABS: Slide Review Reflex No
--- NOTE | 2024-06-27 07:32 | PC.NURSE ---
Shift note ([id number]): Patient pleasant alert and oriented. Independent with ambulation. O2 sats dropped to 83% on 1 LPM after ambulating to bathroom. Pt reported it was difficult to catch her breath at that time. O2 increased to 2 LPM at that time to keep sats 88-91%. Titrated O2 down to 1.5 LPM. O2 89% on 1.5 LPM. Given PRN Tylenol for c/o headache. BPs remain elevated. ?
[2024-06-27] MEDS: POTASSIUM CHLORIDE 10 MEQ CAPSULE ER 20 MEQ PO (07:39)
[2024-06-27] MEDS: predniSONE 20 MG TABLET PO (07:39)
[2024-06-27] MEDS: OSELTAMIVIR PHOSPHATE 75 MG CAPSULE PO (07:39)
[2024-06-27] MEDS: METOPROLOL SUCCINATE (XL) 100 MG TAB PO (09:34)
[2024-06-27] MEDS: guaiFENesin 600 MG TAB.ER.12H 1200 MG PO (09:35)
[2024-06-27] MEDS: ATORVASTATIN 10 MG TABLET 20 MG PO (09:35)
[2024-06-27] MEDS: SODIUM CHLORIDE 0.9 % (FLUSH) 10 ML SYRINGE 5 ML IVF (09:35)
[2024-06-27] MEDS: ALBUTEROL SULFATE 2.5 MG/3 ML VIAL.NEB NEB (09:35)
[2024-06-27] MEDS: APIXABAN 5 MG TABLET PO (09:35)
[2024-06-27 11:00] VITALS: BP 151/92; PULSE 106; RESP 18; TEMP 36.9; O2SAT 88
--- NOTE | 2024-06-27 14:32 | P.DS_ITS ---
DS: Providers Provider Time Seen by Provider: 11:00 Date Seen: 06/27/24 Date of admission: 06/23/24 15:53 Primary care physician: Melania Bishop DO Admitting Clinician: Carol Munoz MD Consults: 06/23/24 15:53 Consult to Occupational Therapy [CONS] Routine Comment: Reason(s) for OT Consult:: Evaluate and Treat Any Restrictions?:: No Restrictions Consult to Physical Therapy [CONS] Routine Comment: Reason(s) for PT Consult:: Evaluate and Treat Any Restrictions?:: No Restrictions Consult to Respiratory Therapy [CONS] Routine Comment: Reason(s) for RT Consult:: Consult Consult to Butter Melter [CONS] Routine Comment: Reason for Consult:: Social Service Consult Attending Physician on discharge: Regina Kerr MD Date of Discharge: 06/27/24 DS: Diagnosis Discharge Diagnosis (1) Acute hypoxic respiratory failure: Status: Acute Problem details: -stabilized on NC oxygen, oral steroids and tamiflu -nebs, mucinex - 06/27 off oxygen, d/c home (2) Influenza A: Status: Acute Problem details: -Tamiflu, will need 2 more doses for home (3) Sinus tachycardia: Status: Acute Problem details: -acute illness, nebs, steroids, anxiety -echo 06/26 confirmed normal heart with hyperdynamic function noted (d/t sinus tach) - ziopatch upon homegoing (4) Atrial fibrillation with RVR: Status: Acute Problem details: -new diagnosis -echo planned for 06/26/2024 -seems to have converted quickly, currently sinus -no rate control was needed before she spontaneously converted -started anticoagulation with Eliquis 5 mg b.i.d. -recommend Zio patch and cardiology follow-up discharge (5) COPD (chronic obstructive pulmonary disease): Status: Acute Problem details: -I do not see this in her EMR. Quite likely undiagnosed given ongoing active smoker. Not oxygen dependent -management as above -outpatient follow-up with PCP for further workup, PFTs, management (6) Transaminitis: Status: Acute Problem details: -AST 50, ALT 47, previously WNL. -improving (7) Hypokalemia: Status: Acute Problem details: -potassium 3.3, oral supplement 40 mEq, recheck in a.m. - 06/27 potassium 4 (8) Hyponatremia: Status: Acute Problem details: -acute on chronic, sodium 130, previous 131. 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 She told me that having a collapsed lung did not change her smoking habits, her would not stop smoking at this point and neither will she. DS: Summary Hospital Course Hospital Course: NOTE TO PCP: Consider PFTs for probable COPD Per H&P: Shayy Hooker is a 68 year old female past medical history significant for current smoker, osteoarthritis, palpitations on a beta-marlyn is admitted to the medical floor from the ED for further management acute hypoxic respiratory failure in acute influenza a infection. Patient reports not feeling well for the past 6 days. Increasing shortness of breath. Coarse cough. Increasing weakness and lack of appetite. Denies headaches or dizziness. Denies recent fevers chills sweats. Denies chest pain or tightness. Denies abdominal pain. No nausea or vomiting. No diarrhea. No change in urination. Is up-to-date on her vaccinations. Active smoker, typically 1 PPD. She tells me her is also ill and is on his way to the ED now as well. Acute remained on oxygen and received treatment with nebulizers, steroids, supplemental oxygen, Tamiflu, respiratory therapy, and potassium. She made improvement over the next few days, and did develop new onset atrial fibrillation with rapid ventricular rate that spontaneously converted. She was placed on Eliquis for anticoagulation for that. She is in improved condition, off oxygen today, and is discharged home. Time Spent with Patient Time attestation: Total time spent providing and/or coordinating discharge services: Today I spent 35 minutes discharging the patient, reviewing [facility]panse and [facility] notes/diagnostics/labs, discussing the care plan with our care team that includes social work, PT/OT, pharmacy, RT, halfway and documenting my impressions and plan in the medical record. Smoking/Tobacco 96017 >10 mins. I went over the clinical stigmata of chronic tobacco use on the body. I explained the effect on the vasculature, lungs, heart, skin. I recommended complete abstinence from tobacco products and instructed on programs available at discharge from acute care. Exam Narrative: Exam Narrative: General: No acute distress. Awake, alert, oriented x3. No pallor. No jaundice. Oropharynx: Clear. Mucous membranes moist. Cardiovascular: Regular rate and rhythm. No murmurs, gallops, or rubs. Respiratory: Some air movement, no wheezing or crackles. Abdomen: Bowel sounds present. Soft, nondistended, nontender. Extremities: No lower extremity edema. Const: Vital Signs, click to edit/add: Vital Signs - 24 hr 06/26/24 15:00 06/26/24 15:00 06/26/24 15:00 Temperature 98.3 F Pulse Rate 104 H Pulse Rate [Pulse Oximeter] 100 100 Respiratory Rate 18 18 Blood Pressure [Le ft Arm] 157/98 H Pulse Oximetry 89 Oxygen Delivery Me thod Room Air Oxygen Flow Rate 06/26/24 19:00 06/26/24 22:37 06/26/24 23:00 Temperature 98.1 F 98.3 F Pulse Rate 83 Pulse Rate [Pulse Oximeter] 96 96 Respiratory Rate 19 23 Blood Pressure [Le ft Arm] 163/99 H 155/105 H Pulse Oximetry 88 89 Oxygen Delivery Me thod Room Air Nasal Cannula Oxygen Flow Rate 1 06/27/24 02:59 06/27/24 07:00 06/27/24 07:00 Temperature 98.5 F 98.4 F Pulse Rate 114 H Pulse Rate [Pulse Oximeter] 99 107 H Respiratory Rate 20 18 Blood Pressure [Le ft Arm] 161/96 H 139/93 H Pulse Oximetry 91 90 Oxygen Delivery Me thod Nasal Cannula Room Air Oxygen Flow Rate 2 06/27/24 07:00 06/27/24 11:00 Temperature 98.4 F Pulse Rate Pulse Rate [Pulse Oximeter] 107 H 106 H Respiratory Rate 18 18 Blood Pressure [Le ft Arm] 151/92 H Pulse Oximetry 88 Oxygen Delivery Me thod Room Air Oxygen Flow Rate DS: Data Data Completed and Pending Completed studies during hospitalization: 06/24/2024 EKG: Normal sinus rhythm, 88 beats per minute, anterior septal infarct, age undetermined. 06/25/2024 EKG: Atrial fibrillation with rapid ventricular response with arpan ature ventricular or aberrantly conducted complexes common 119 beats per minute, ST and T-wave abnormality, consider inferior ischemia. 06/25/2024 EKG: Sinus a car hernia, right atrial enlargement, 101 beats per minute. Ordering Physician: Nicole Ivan M.D. Date of Service: 06/23/24 Procedure(s): CT angio chest PE protocol Accession Number(s): [id number] cc: Nicole Ivan M.D.; Melania Bishop, DO~ For Patients: As a result of the Cures Act, medical imaging exams and procedure reports are released immediately into your electronic medical record. You may view this report before your referring provider. If you have questions, please contact your health care provider. INDICATION: Cough and hypoxia, elevated D-dimer. TECHNIQUE: CT chest PE was acquired with 100 cc Omnipaque 350 IV contrast. COMPARISON: None. FINDINGS: Pulmonary Arteries: No pulmonary emboli. No arterial dilation. Aorta: No aneurysm or ulcerating plaques. Heart: Heart size is normal. No pericardial effusion. Lungs: Moderate diffuse bronchial wall thickening throughout the lungs with multifocal tree-in-bud changes. Linear scarring or atelectasis in the right middle lobe and both lung bases. Postop resection changes medially in the right upper lobe. Pleura: No pleural effusions, pleural thickening, or pneumothorax. Diffuse esophageal wall thickening suggesting GERD. Lymph nodes/mediastinum: Mild middle mediastinal adenopathy with a precarinal lymph node measuring 1.8 x 1.3 by 1.7 centimeters. Mild right hilar adenopathy with a right hilar lymph node measuring 1.6 x 1.2 by 1.6 centimeters. Chest wall: No masses. Upper abdomen: Normal. Bones: Unremarkable for age. Impression: : 1. No pulmonary emboli. 2. Moderate diffuse bronchial wall thickening throughout both lungs. 3. Diffuse multifocal tree-in-bud changes consistent with infections which may be bacterial, viral, mycoplasma or fungal. 4. Diffuse esophageal wall thickening suggesting GERD. 5. Mild right hilar and right mediastinal adenopathy Please note that all CT scans at this facility use dose modulation, iterative reconstruction, and/or weight-based dosing when appropriate to reduce radiation dose to as low as reasonably achievable. Dictated by Keanu Reyes MD @ 06/23/2024 2:01:59 PM (Electronically Signed) Ordering Physician: Carol Munoz M.D. Date of Service: 06/25/24 Procedure(s): XR chest 2V Accession Number(s): [id number] cc: Carol Munoz M.D.; Melania Bishop DO~ For Patients: As a result of the Cures Act, medical imaging exams and procedure reports are released immediately into your electronic medical record. You may view this report before your referring provider. If you have questions, please contact your health care provider. INDICATION: : flu A; f/u CXR COMPARISON: CTA chest on June 23, 2024 TECHNIQUE: Two view(s) of the chest FINDINGS/IMPRESSION: The cardiomediastinal silhouette and pulmonary vasculature are unremarkable. There is no focal airspace consolidation, pleural effusion, or pneumothorax. Faint lower lung zone tiny airspace opacities, likely consistent with tree-in-bud nodularity seen on prior CT exam with trace posterior basal atelectasis. No displaced fractures. Dictated by Sanchez Apple MD @ 06/25/2024 9:34:19 AM (Electronically Signed) Labs on day of discharge: Labs from last 24 hours 06/27/24 06:20 WBC 16.65 H RBC 3.75 L Hgb 11.3 L Hct 34.3 MCV 92 MCH 30 MCHC 33 RDW Coeff of Reynaldo 13.8 Plt Count 470 H Neut % (Auto) 77.9 H Lymph % (Auto) 12.7 L [place] % (Auto) 7.8 Eos % (Auto) 0.5 Baso % (Auto) 0.1 Neut # (Auto) 13.00 H Lymph # (Auto) 2.10 [place] # (Auto) 1.30 H Eos # (Auto) 0.10 Baso # (Auto) 0.00 Abs Immat Gran (auto) 0.20 Imm/Tot Granulo (auto) 1.0 Sodium 129 L Potassium 4.0 Chloride 99 Carbon Dioxide 24 Anion Gap 6 L BUN 18 Creatinine 0.4 L Estimated Creat Clear 55.07 Estimated GFR 108 Glucose 97 Calcium 9.1 Discharge Plan Discharge Disposition: Home, Self-Care Date of Admission: 06/23/24 15:53 Attending Provider on Discharge: Regina Kerr Primary Care Provider: Melania Bishop Condition: Improved Anticipated Discharge Date/Time: 06/27/24 14:45 Discharge Medications: New ipratropium-albuterol 0.5 mg-3 mg(2.5 mg base)/3 mL Solution For Nebulization 3 ml inhalation Q6H Qty: 20 0RF albuterol sulfate 2.5 mg /3 mL (0.083 %) Solution For Nebulization 2.5 mg NEB Q6H Qty: 20 0RF oseltamivir 75 mg Capsule 75 mg PO Q12H 1 Days Qty: 2 0RF Eliquis 5 mg Tablet 5 mg PO BID Qty: 60 0RF guaifenesin [Mucinex] 600 mg Tablet Extended Release 12hr 1,200 mg PO BID Qty: 10 0RF prednisone 20 mg Tablet 20 mg PO DAILYWM Qty: 2 0RF Continued multivitamin Tablet 1 tab PO QAM metoprolol succinate 100 mg tablet extended release 24 hr 100 mg PO DAILY atorvastatin 20 mg tablet 20 mg PO DAILY clobetasol 0.05 % ointment 1 applic topical BID PRN Discharge Orders: Discharge Order (Routine); Ordered 06/27/24 Ordered By: Regina Kerr Additional Instructions: - Ziopatch - Cardiology 1-2 weeks - Smoking cessation strongly recommended Activity Level: No Restrictions Discharge Diet: Regular Follow Up Appointments: Melania Bishop DO [Primary Care Provider] - (Friday) Forms: Work/School Release, [facility] Info Instructions
--- NOTE | 2024-06-27 16:43 | PC.NURSE ---
DC: Pt alert, oriented and vitally stable, though slightly hypertensive. Pt O2 sats remained above 85% throughout shift, OK by RT. Placed zio patch. IV removed tip intact. DC info given to pt, topics including medications and followup. Pt DC home with familly at 1605.
== END 2024-06-27 16:05 | disposition home or self-care (01) | DRG 193 ==
LOC: ED 14:34 → MEDSURG 15:58
PROVIDERS: Physician Assistant; Admitting Provider Family Medicine; Emergency Provider Emergency Medicine; PCP Family Medicine; Visit Provider Family Medicine
DX: J10.1 Influenza due to other identified influenza virus with other respiratory manifestations (principal); J96.01 Acute respiratory failure with hypoxia; E87.1 Hypo-osmolality and hyponatremia; J44.9 Chronic obstructive pulmonary disease, unspecified; I48.91 Unspecified atrial fibrillation; E87.6 Hypokalemia; R00.0 Tachycardia, unspecified; R00.2 Palpitations; F17.210 Nicotine dependence, cigarettes, uncomplicated; F32.A Depression, unspecified; M47.26 Other spondylosis with radiculopathy, lumbar region; E04.2 Nontoxic multinodular goiter; R74.01 Elevation of levels of liver transaminase levels
CPT/HCPCS: 36415; 71046; 71275; 80048; 80076; 82803; 83735; 83880; 84145; 84484; 85025; 85027; 85379; 86140; 87631; 93005; 93246; 93306; 94640; 94664; 94761; 97110; 97161; 97165; 99284; 99285; A9270; J1650; J2919; J7512; Q9967; S4990

== ENCOUNTER 2024-08-22 11:27 | Emergency (ER) | payer MEDICARE, BC, SELFPAY ==
[2024-08-22] VITALS (9 sets, daily range): BP systolic 150–183; BP diastolic 94–112; PULSE 100–110; RESP 17–27; TEMP 36.6; O2SAT 90–97; BMI 22.8
--- OUTSIDE RECORDS SUMMARY | 2024-08-22 11:29 | XMS_ITS | Continuity of Care Document ---
Author Organization Z [facility], [facility] Address [address] [place] [address] [address] [place] [address] Phone Care Team Providers [facility] [place] Wellness Coordinator Name Role Phone Jordy Purvis Unavailable Unavailable Advance Directives Directive Yes / No Effective Date File Name No Information Encounters Encounter Description Practice Location Reason(s) For Visit Diagnoses Date Provider Providers Copied on Encounter Z [facility], [address] [place], [place] [address] [address], [place], [address], [place] tel:[phone] [facility] No Information Mar-2 9-200 8 Karli Spence. [address] [place] [address] [address], [place], [place], [id number] , [place]. tel:[phone] Family History Family Member Type Diagnosis Age At Onset No Information Payers Payer name Insurance type Covered constitution party ID Authoriza tion(s) No Information Social History Type Description Quantity Date Captured Comments Sex Female Smoking Status No Information Chief Complaint And Reason For Visit No Information Reason For Referral Reason For Referral No Information History Of Present Illness Encounter Date Complaint History Of Prese nt Illness No Information Functional Status Date Functional Assessmen t No Information Instructions Date Instruction Additional Infor mation No Information Assessments Type Assessment Date No Information Patient Care Teams Name Effective Dates (start - stop) Status Members No Information
--- OUTSIDE RECORDS SUMMARY | 2024-08-22 11:29 | XMS_ITS | Clinical Summary ---
Author Organization [facility] Address [address] [place] [id number] Care Team Providers Care Financial Sales Manager Name Role Phone Melania Bishop Primary Care Provider [phone] Allergies Active Allergy Reactions Criticality Noted Date Comments Cefaclor Hives,Edema High 01/31/2005 Other reaction(s): Hives (High) Hydromorphone Nausea And Vomiting Low 12/25/2016 Sulfadimethoxine Hives High 03/01/2015 Other reaction(s): Hives (High) Medications MULTIVITAMIN TAB take 1 tablet by oral route once daily with food 0 05/19/20 08 Active triamcinolone 0.1 % ointmentIndication s:Eczema, unspecified type Apply topically to affected area(s) two times daily. To itchy area on ear as needed. 15 g 07/30/19 24 Active clobetasol (TEMOVATE) 0.05 % ointmentIndication s:Lichen sclerosus et atrophicus Apply topically to affected area(s) two times daily. To outer vaginal area for lichen sclerosus as needed. 15 g 04/05/20 24 Active metoprolol succinate (TOPROL XL) 100 mg Sustained-Release tabletIndications: Palpitations Take 1 Tablet (100 mg) by mouth once daily. 90 Tablet 06/23/19 25 Active albuterol 0.083% (2.5 mg/3 mL) neb solution Inhale 2.5 mg via a nebulizer every 6 hours if needed. 06/27/19 25 Active albuterol-ipratrop ium (DUONEB) (2.5-0.5 mg) in 3 mL NEBULIZATION solution Inhale 1 Neb via a nebulizer every 6 hours if needed. 06/27/19 25 Active medication order composer Lizett 07/01/19 25 Active atorvastatin (LIPITOR) 20 mg tabletIndications: Hyperlipidemia, unspecified hyperlipidemia type Take 1 Tablet (20 mg) by mouth at bedtime. 60 Tablet 07/10/19 25 Active umeclidinium (Incruse Ellipta) 62.5 mcg/actuation inhalerIndications :Centrilobular emphysema (HC) Inhale 1 Puff by mouth once daily. Discard inhaler 6 weeks after opening or when the counter reads '0' (after all blisters have been used), whichever comes first. 90 Each 1 08/19/19 25 Active meloxicam (MOBIC) 7.5 mg tabletIndications: Bilateral shoulder region arthritis Take 1 Tablet (7.5 mg) by mouth once daily. 90 Tablet 1 08/19/19 25 Active calcium with vitamin D3 (CALCIUM+D) tablet Take 1 tablet by mouth once daily with a meal. 025 Discontinu ed(*Med complete/R egimen complete/L evel of care change) Mucus Relief ER 600 mg Extended-Release tablet Take 2 Tablets by mouth two times daily. 06/27/19 25 025 Discontinu ed(*Med complete/R egimen complete/L evel of care change) warfarin (COUMADIN) 2 mg tabletIndications: First detected episode of atrial fibrillation (HC),Anticoagulati on monitoring, INR range 2-3 Take by mouth 6 mg (2 mg x 3) every Fri; 7 mg (2 mg x 3.5) all other days in the evening OR as directed 07/23/19 25 025 Discontinu ed(Reorder (E-cancel not sent)) warfarin (COUMADIN) 2 mg tabletIndications: First detected episode of atrial fibrillation (HC),Anticoagulati on monitoring, INR range 2-3 Take by mouth 8 mg (2 mg x 4) every Mon, Fri; 7 mg (2 mg x 3.5) all other days in the evening OR as directed 07/30/19 25 025 Discontinu ed(Other - add note to specify (E-cancel not sent)) warfarin (COUMADIN) 2 mg tabletIndications: First detected episode of atrial fibrillation (HC),Anticoagulati on monitoring, INR range 2-3 Take by mouth 7 mg (2 mg x 3.5) every Fri, Tue, Marta; 8 mg (2 mg x 4) all other days in the evening OR as directed 08/06/19 25 025 Discontinu ed(*Med complete/R egimen complete/L evel of care change) Active Problems Problem Noted Date Diagnosed Date Centrilobular emphysema 04/14/2024 Overview (04/14/2024): On CT from 2021 and 2023 Osteopenia of multiple sites 02/05/2018 Overview (02/05/2018): DXA 2012 Spontaneous pneumothorax 12/23/2016 Multiple thyroid nodules 01/19/2015 Overview (01/19/2015): small, on ultrasound 2014. biopsied to rule out medullary thyroid cancer (pt was having symptoms of diarrhea). Biopsy benign. Dr. Sharpe recommends follow up ultrasound 2016. if enlarging, refer back. if no change, repeat ultrasound 2-3 years later. Abdominal pain, epigastric 10/17/2014 Overview (10/17/2014): EGD 10/2014 Reactive gastropathy Lumbar facet arthropathy 02/16/2014 Synovial cyst of lumbar facet joint 11/25/2013 Lumbosacral radiculopathy at S1 11/25/2013 Palpitations 12/01/2012 Lichen sclerosus et atrophicus 01/23/2012 Colon polyp 11/11/2011 Overview (02/28/2021): Colonoscopy 11/2011 polyp repeat in 5 years Colonoscopy 09/2014 normal repeat in 5 years Colonoscopy 02/2021 redundant colon, repeat in 5 years, adult scope Angiodysplasia of colon 11/07/2011 Medial epicondylitis of elbow 08/31/2011 Overview (08/31/2011): Left elbow. Saw Strattonjoy Espinoza with 3rd injection August 2011. Tobacco use disorder 12/18/2006 Depressive disorder, not elsewhere classified Resolved Problems Problem Noted Date Diagnosed Date Resolved Date First detected episode of atrial fibrillation 06/30/19 25 08/18/2024 Anticoagulation monitoring, INR range 2-3 06/30/2024 08/18/2024 Colon polyp 11/07/2011 07/07/2013 Sciatica 02/23/2009 12/16/2013 Encounters Date Type Department Care Team Description 08/18/2024 1:10 PM CDT Office Visit [facility] [address] [place] [address] Melania Bishop, DO Follow Up (Has seen cardiology, stopped warfarin, abd pain has stopped. Now having more arthritic pain in shoulders. Also having productive coughing more often. ) 08/18/2024 Travel 08/10/2024 11:00 AM TITLE DEPARTMENT MANAGER Office Visit [facility] [address] [place] [address] Baljit Camarillo MD Follow Up (Echo 06/26/2024) 08/10/2024 8:00 AM TITLE DEPARTMENT MANAGER Orders Only [facility] [address] [place] [address] Lab[facility] 08/10/2024 Travel 08/06/2024 1:00 PM TITLE DEPARTMENT MANAGER Orders Only [facility] [address] [place] [address] Lab, [facility] 08/06/2024 Anticoagulation (warfarin) [facility] [address] [place] [address] 1, [facility]tico[facility] 08/06/2024 Travel 07/30/2024 12:45 PM TITLE DEPARTMENT MANAGER Orders Only [facility] [address] [place] [address] Lab, [facility] 07/30/2024 Anticoagulation (warfarin) [facility] [address] [place] [address] 1, [facility] Anticoagulation 07/30/2024 Travel 07/23/2024 Anticoagulation (warfarin) [facility] [address] [place] [address] 1, [facility] Anticoagulation 07/22/2024 1:30 PM TITLE DEPARTMENT MANAGER Orders Only [facility] [address] [place] [address] Lab, [facility] 07/22/2024 Travel 07/19/2024 1:30 PM TITLE DEPARTMENT MANAGER Orders Only [facility] [address] [place] [address] Lab, [facility] 07/19/2024 Refill [facility] [address] [place] [address] Melania Bishop, DO Refill Request 07/19/2024 Anticoagulation (warfarin) [facility] [address] [place] [address] 1, [facility] Anticoagulation 07/19/2024 Travel 07/16/2024 Anticoagulation (warfarin) [facility] [address] [place] [address] 1, [facility] Anticoagulation 07/15/2024 1:30 PM TITLE DEPARTMENT MANAGER Orders Only [facility] [address] [place] [address] Lab, [facility] 07/15/2024 Travel 07/12/2024 10:00 AM TITLE DEPARTMENT MANAGER Orders Only [facility] [address] [place] [address] Lab, [facility] 07/12/2024 Anticoagulation (warfarin) [facility] [address] [place] [address] 1, [facility] Anticoagulation 07/12/2024 Travel 07/09/2024 Refill [facility] [address] [place] [address] Melania Bishop, DO Refill Request (ATORVASTATIN) 07/08/2024 10:15 AM TITLE DEPARTMENT MANAGER Orders Only [facility] [address] [place] [address] Lab[facility] 07/08/2024 Telephone [facility] [address] [facility] [address] Melania Bishop, DO Follow Up 07/08/2024 Anticoagulation (warfarin) [facility] [address] [place] [address] 1, [facility] Anticoagulation 07/08/2024 Travel 07/06/2024 Orders Only [facility] [place] [place] [address] Melania Bishop, DO <No scans attached> 07/05/2024 10:00 AM TITLE DEPARTMENT MANAGER Orders Only [facility] [place] [facility] [place] [address] Lab, [facility] 07/05/2024 Telephone [facility] [place] [facility] [address] Melania Bishop, Anticoagulation (Request approval of Warfarin dosing outside of AC protocol) 07/05/2024 Anticoagulation (warfarin) [facility] [address] [place] [address] 1, [facility] Anticoagulation 07/05/2024 Travel 07/05/[address] [address] Melania Bishop, Letter For Work 06/30/2024 11:15 AM TITLE DEPARTMENT MANAGER Office Visit [address] [address] Melania Bishop, Hospital F/U (Influenza and SOB, DOD 06/27/24) 06/30/2024 Anticoagulation (warfarin) [facility] [address] [place] [address] 1, [facility] Anticoagulation (Initial) 06/30/[address] [address] Melania Bishop, Anticoagulation (Target end date) 06/30/[address] [address] Melania Bishop DO Anticoagulation (Standing Labs) 06/30/2024 Travel 06/27/2024 Orders Only [facility] [address] [place] [address] Melania Bishop DO 1 scan: (1-Ord) ZIO REPORT 06/26/2024 10:00 AM TITLE DEPARTMENT MANAGER Ancillary Procedure [facility] [address] [place] [address] 06/21/2024 Refill [facility] [address] [place] [address] Melania Bishop DO Refill Request (Metoprolol ER Succinate 100mg ) from Last 3 Months Immunizations Immunization Administration Dates Next Due AMB Influenza, IIV4 PF (=>6 mos Flulaval,Fluzone Fluarix)(Flu Clinic Only) 05/18/2014 COVID-19 VACCINE SPIKEVAX (M ODERNA 50MCG/0.5ML) 12YO+ PFS 04/05/2024,04/02/2023 COVID-19 vaccine ([employer] NTech 30mcg/0.3mL) PF, MDV 07/02/2021,11/02/2020,10/09/2020 Influenza A (H1N1), Inactivated 07/14/2009 Influenza A (H1N1), Inactiva malaika (Age >=3 Years) 07/14/2009 Influenza Virus, Unspecified 03/11/2016 Influenza, High-dose Quadriv alent Inactivated 03/08/2022 Influenza, IIV3 (Age 6-35 mos) 04/16/2011,2009 Influenza, IIV3 (Age >=3 years) 04/16/20 11,02/27/2010,03/10/2009,2002 Influenza, IIV4 02/28/2016,03/15/2015,05/18/2014 Influenza, Inactivated AIIV4 (Age 65+ Years) Preserv Free 04/02/2023 Influenza, Inactivated IIV3 (Age 65+ Years) Preserv Free 04/05/2024 Pneumococcal Conj 20-valent (Prevnar 20) 04/05/2024 Pneumococcal Poly,23-Valent (Pneumovax) 02/07/2021 Td (Age >=7 Years) 04/20/2003 Tdap 04/02/2023,12/01/2012 Family History Medical History Relation Name Comments Hypertension Brother 50, with kidney problems Alcohol/Drug Father Cancer Father hodgkins Other Maternal Grandmother TB Alcohol/Drug Mother Cancer-breast No Family History Cancer-ovarian No Family History Relation Name Status Comments Brother Father Maternal Grandmother Mother Social History Tobacco Use Types Packs/Day Years Used Date Smoking Tobacco: Every Day Cigarettes 1 49.5 Started: 02/10/1975 Smokeless Tobacco: Never Tobacco Cessation:Ready to Q uit: Not Asked; Counseling Given: Yes Alcohol Use Standard Drinks/Week Comments No 0 (1 standard drink = 0.6 oz pur e alcohol) PHQ-2 Answer Date Recorded PHQ-2 TOTAL SCORE 0 04/05/2024 Social Connections Answer Date Recorded Do you often feel lonely or isolated from those around you? 0 02/16/2024 Financial Resource Strain Answer Date R ecorded Difficulty of Paying Living Expenses 3 02/16/2024 Difficulty of Paying Living Expenses Not on file 02/16/2024 Food Insecurity Answer Date Recorded Do you worry your food will run out before you are able to buy more? 1 02/16/2024 Transportation Needs Answer Date Record ed Does lack of transportation keep you from medica l appointments? 1 02/16/2024 Does lack of transportation keep you from work, meetings or getting things that you need? 1 02/16/2024 Housing Stability Answer Date Recorded What is your housing situation today? 1 02/16/2024 Utilities Answer Date Recorded Do you have trouble paying f or utilities (for example, heat, electricity, water, phone)? 1 02/16/2024 Comments No Sex and Gender Information Value Date Recorded Sex Assigned at Not on file Legal Sex Female 5:41 AM TITLE DEPARTMENT MANAGER Gender Identity Not on file Sexual Orientation Not on file Occupation Industry Job Start Date Job End Date Not on file Not on file Not on file Not on file Not on file Not on file Not on file Not on file Obstetrics History Para Term AB IAB SAB Ectopic Multiple Livin g Live Births 2 2 Date Outcome GA Total Labor Labor/2nd/3rd Weight Sex Type Anes PTL Jes A1 A5 Name Clin Last Filed Vital Signs Vital Sign Reading Time Taken Comments Blood Pressure 130/85 08/18/2024 1:07 PM CDT Pulse 88 08/18/2024 1:26 PM CDT Temperature 36.7 C (98 F) 02/16/2024 2:48 PM CDT Respiratory Rate 20 03/28/2017 1:06 PM CDT Oxygen Saturation 93% 08/18/2024 1:26 PM CDT Inhaled Oxygen Concentration - - Weight 68.9 kg (152 lb) 08/18/2024 1:07 PM CDT Height 172.7 cm (5' 8) 04/05/2024 10:32 AM CDT Body Mass Index 23.11 04/05/2024 10:32 AM CDT Plan of Treatment Upcoming Encounters Date Type Department Care Team (Late st Contact Info) Description 11/18/2024 12:45 PM CDT Office Visit [facility] [address] [place] [address] Melania Bishop DO [address] [place] [address] Health Maintenance Due Date Last Done Comments Zoster (shingles) series for age 50+ (1 of 2) 2006 RSV vaccine for adults or (1 - Risk 60-74 years 1-dose series) 2016 COVID-19 vaccine series ( season) 2024 04/05/2024, 04/02/2023, 03/08/2022, Additional history exists BMI (ht and wt on same day) for age 18+ 04/05/2025 04/05/2024, 02/16/2024, 07/30/2023, Additional history exists Depression screening for age 12+ 04/05/2025 04/05/2024, 04/05/2023, 04/02/2023, Additional history exists Medicare Wellness for age 65+ 04/06/2025 04/05/2024 Mammogram for age 45-75 04/07/2025 04/07/20 24, 02/18/2022, 02/15/2021, Additional history exists Low Dose CT (for lung CA) ag e 50-80 04/12/2025 04/12/2024, 02/25/2022, 02/19/2021, Additional history exists Colonoscopy through age 75 02/28/202602/28, 02/28/2021, 02/28/2021, Additional history exists Lipids for age 45-75 04/05/2029 04/05/2024, 02/14/2022, 02/07/2021, Additional history exists Tetanus booster 04/02/2033 04/02/2023, 11/08, 04/20/2003 Hepatitis C screening for ag e 18-79 Completed 02/11/2019 Tdap Completed 04/02/2023, 12/01/2012 Influenza Vaccine Completed 04/05/2024, , 03/11/2016, Additional history exists Pneumococcal series for age 50+ Completed , 02/07/2021 DEXA/DXA scan for age 65+ Completed 2023, 12/22/2012, 09/03/2001 Medical Devices Implanted Type Area Light Technician Device Identifier Shelf Expiration Date Model / Serial / Lot Kit Cleo Marcial - [id number] Implanted:Qty: 1 on 02/01/2005 at [facility] N/A: Spine SOFAMOR DANEK [id number] / [id number] / [id number] Bone Canclls 15ml Chips [facility] [[id number]] [[id number]][ Implanted:Qty: 1 on 02/01/2005 at [facility] Explanted:at [facility] (Quantity not on file) Lumbar Vertebrae [employer] 02/03/2009 [id number] / [id number] / [id number] Description:cancellous chips 15cc ID# [id number] Avs Tl Spacer Deg Spacer [id number] Implanted:Qty: 1 on 02/01/2005 at [facility] N/A: Spine [id number] / / Description:kimo spine av s tl spacer implant #[id number] deg spacer [id number] - [id number] Implanted:Qty: 4 on 02/01/2005 at [facility] Lumbar Vertebrae [employer] [id number] / / [id number] - [id number] Implanted:Qty: 2 on 02/01/2005 at [facility] N/A: Lumbar Vertebrae [id number] / / Description:pRE-BENT RAD LISA [id number] - [id number] Implanted:Qty: 4 on 02/01/2005 at [facility] N/A: Lumbar Vertebrae [employer] [id number] / / Description:TYRA BLOCKERS Procedures Procedure Name Priority Date/Time Associated Diagnosis Comments TSH Routine 08/10/2024 11:45 AM TITLE DEPARTMENT MANAGER First detected episode of atrial fibrillation (HC) INR,POCT Routine 08/06/2024 1:01 PM TITLE DEPARTMENT MANAGER First detected episode of atrial fibrillation (HC) Anticoagulation monitoring, INR range 2-3 INR,POCT Routine 07/30/2024 12:44 PM TITLE DEPARTMENT MANAGER First detected episode of atrial fibrillation (HC) Anticoagulation monitoring, INR range 2-3 PROTIME-INR Routine 07/22/2024 12:40 PM TITLE DEPARTMENT MANAGER First detected episode of atrial fibrillation (HC) Anticoagulation monitoring, INR range 2-3 PROTIME-INR Routine 07/19/2024 11:26 AM TITLE DEPARTMENT MANAGER First detected episode of atrial fibrillation (HC) Anticoagulation monitoring, INR range 2-3 HEPATIC FUNCTION PANEL Routine 07/15/2024 1:32 PM TITLE DEPARTMENT MANAGER Transaminitis PROTIME-INR Routine 07/15/2024 1:30 PM TITLE DEPARTMENT MANAGER First detected episode of atrial fibrillation (HC) Anticoagulation monitoring, INR range 2-3 PROTIME-INR Routine 07/12/2024 9:51 AM TITLE DEPARTMENT MANAGER First detected episode of atrial fibrillation (HC) Anticoagulation monitoring, INR range 2-3 PROTIME-INR Routine 07/08/2024 10:07 AM TITLE DEPARTMENT MANAGER First detected episode of atrial fibrillation (HC) Anticoagulation monitoring, INR range 2-3 INR,POCT Routine 07/05/2024 9:57 AM TITLE DEPARTMENT MANAGER First detected episode of atrial fibrillation (HC) Anticoagulation monitoring, INR range 2-3 EXTENDED HOLTER Routine 07/05/2024 Atrial fibrillation (HC) PROTIME-INR Routine 06/30/2024 12:11 PM TITLE DEPARTMENT MANAGER First detected episode of atrial fibrillation (HC) COMP METABOLIC PANEL Routine 06/30/2024 12:11 PM TITLE DEPARTMENT MANAGER Hospital discharge follow-up Transaminitis Abdominal pain, RUQ (right upper quadrant) CBC WITH AUTO DIFFERENTIAL Routine 06/30/2024 12:11 PM TITLE DEPARTMENT MANAGER Abdominal pain, RUQ (right upper quadrant) ECHO TTE COMPLETE WO CONTRAST Routine 06/26/2024 9:26 AM TITLE DEPARTMENT MANAGER New onset a-fib (HC) XR DXA BONE DENSITY 2 SITES AXIAL Routine 04/12/2024 1:26 PM TITLE DEPARTMENT MANAGER Menopause CT CHEST SCREENING LOW DOSE WO CONTRAST Routine 04/12/2024 1:09 PM TITLE DEPARTMENT MANAGER Tobacco use disorder Personal history of nicotine dependence XR MAMMO BILAT SCREENING Routine 04/07/2024 11:42 AM CDT Encounter for screening mammogram for malignant neoplasm of breast LIPID PANEL W REFLEX MEASURED LDL Routine 04/05/2024 11:33 AM CDT Screening for lipid disorders COLONOSCOPY SCREENING Routine 02/28/2021 8:38 AM CDT Personal history of colonic polyps ANTI HCV Routine 02/11/2019 10:38 AM CDT Encounter for hepatitis C screening test for low risk patient from Last 3 Months or Most Recently Relevant to Health Maintenance Results * TSH (08/10/2024 11:45 AM TITLE DEPARTMENT MANAGER) TSH 1.29 0.40 - 4.50 mIU/L [facility] Blood BLOOD SPECIMEN / Unknown 08/10/2024 11:45 AM TITLE DEPARTMENT MANAGER 08/10/2024 11:45 AM TITLE DEPARTMENT MANAGER Baljit Camarillo MD CHEMISTRY Final Result [employer] [facility] [address] [place] [address], [place] [phone] [facility] [address] [place] [address] * (ABNORMAL) INR - POCT [28349.2] - Standing Order (08/06/2024 1:01 PM TITLE DEPARTMENT MANAGER) Only the most recent of3 resultswithin the time period is included. INR 1.9(H) ratio [facility] Comment: INRs >2.9 may be falsely elevated in patients receiving either unfractionated Heparin or Low Molecular Weight Heparin. Follow up testing in a hospital laboratory may be helpful if clinically indicated. INR results of > or = 5.0 should be verified using the standard venipuncture procedure. Reference Range 0.9-1.1 Moderate-intensity Warfarin Therapy 2.0-3.0 Higher-intensity Warfarin Therapy 3.0-4.0 PROTHROMBIN TIMEP 22.9(H) 10.5 - 13.1 sec [facility] Comment: Point of care fingerstick Prothrombin Time/INR results may vary from venous Prothrombin Time/INR methodologies. Any results exhibiting inconsistency with the patient's clinical status should be repeated using a venous Prothrombin Time/INR method. Blood BLOOD SPECIMEN / Unknown 08/06/2024 1:01 PM TITLE DEPARTMENT MANAGER 08/06/2024 1:01 PM TITLE DEPARTMENT MANAGER Melania Bishop DO LABORATORY Final Resu lt [facility] [address] [place] [address], [facility] [address] [place] [address] * (ABNORMAL) PROTIME-INR [[id number]] - Standing Order (07/22/2024 12:40 PM TITLE DEPARTMENT MANAGER) Only the most recent of6 resultswithin the time period is included. INR 2.4(H) <1.3 07/22/2024 10:20 PM TITLE DEPARTMENT MANAGER [facility] PROTIME 27.6(H) 10.6 - 12.4 sec 07/22/2024 10:20 PM TITLE DEPARTMENT MANAGER [facility] Blood BLOOD SPECIMEN / Unknown [facility] / Unknown 07/22/2024 12:40 PM TITLE DEPARTMENT MANAGER 07/22/2024 12:40 PM TITLE DEPARTMENT MANAGER Narrative [facility] - 07/22/2024 10:20 PM TITLE DEPARTMENT MANAGER Therapeutic Range 2.0-3.0 for most anticoagulated patients 2.5-3.5 or 4.0 for high risk patients The INR is only used for patients on stable oral anticoagulant therapy. It makes no significant contribution to the diagnosis or treatment of patients whose Protime is prolonged for other reasons. INR results are increased when heparin levels exceed 1.0 U/mL, which corresponds to an aPTT >125 seconds if the patient is on UFH. us Melania Bishop DO HEMATOLOGY Final Resu lt [facility] [address] [place] [address], * LIVER PANEL (HEPATIC FUNCTION PANEL) (07/15/2024 1:32 PM TITLE DEPARTMENT MANAGER) PROTEIN, TOTAL 7.0 6.1 - 8.1 g/dL [facility] ALBUMIN 4.2 3.6 - 5.1 g/dL [facility] GLOBULIN 2.8 1.9 - 3.7 g/dL (calc) [facility] ALBUMIN/GLOBULIN RATIO 1.5 1.0 - 2.5 (calc) [facility] BILIRUBIN, TOTAL 0.4 0.2 - 1.2 mg/dL [facility] BILIRUBIN, DIRECT 0.1 < OR = 0.2 mg/dL [facility] BILIRUBIN, INDIRECT 0.3 0.2 - 1.2 mg/dL (calc) [facility] ALKALINE PHOSPHATASE 87 37 - 153 U/L [facility] AST 24 10 - 35 U/L [facility] ALT 23 6 - 29 U/L [facility] Blood BLOOD SPECIMEN / Unknown 07/15/2024 1:32 PM TITLE DEPARTMENT MANAGER 07/15/2024 1:33 PM TITLE DEPARTMENT MANAGER us Melania Bishop DO CHEMISTRY Final Resu lt [facility] [address] [facility] [place] [address], [facility] [address] [facility] [place] [address] * EXTENDED HOLTER (07/05/2024) us Melania Bishop DO CARDIAC SERVICES ORD Final Result * (ABNORMAL) CBC AND DIFFERENTIAL (06/30/2024 12:11 PM TITLE DEPARTMENT MANAGER) WHITE BLOOD CELL COUNT 16.4(H) 3.8 - 10.8 Thousand/ uL [facility] RED BLOOD CELL COUNT 3.64(L) 3.80 - 5.10 Million/u L [facility] HEMOGLOBIN 11.2(L) 11.7 - 15.5 g/dL [facility] HEMATOCRIT 34.0(L) 35.0 - 45.0 % [facility] MCV 93.4 80.0 - 100.0 fL [facility] MCH 30.8 27.0 - 33.0 pg [facility] MCHC 32.9 32.0 - 36.0 g/dL [facility] Comment: For adults, a slight decrease in the calculated MCHC value (in the range of 30 to 32 g/dL) is most likely not clinically significant; however, it should be interpreted with caution in correlation with other red cell parameters and the patient's clinical condition. RDW 13.4 11.0 - 15.0 % [facility] PLATELET COUNT 612(H) 140 - 400 Thousand/ uL [facility] MPV 9.0 7.5 - 12.5 fL [facility] ABSOLUTE NEUTROPHILS 12,595(H) 1,500 - 7,800 cells/uL [facility] ABSOLUTE LYMPHOCYTES 2,493 850 - 3,900 cells/uL [facility] ABSOLUTE MONOCYTES 1,115(H) 200 - 950 cells/uL [facility] ABSOLUTE EOSINOPHILS 164 15 - 500 cells/uL [facility] ABSOLUTE BASOPHILS 33 0 - 200 cells/uL [facility] NEUTROPHILS 76.8 % [facility] LYMPHOCYTES 15.2 % [facility] MONOCYTES 6.8 % [facility] EOSINOPHILS 1.0 % [facility] BASOPHILS 0.2 % [facility] Blood BLOOD SPECIMEN / Unknown 06/30/2024 12:11 PM TITLE DEPARTMENT MANAGER 06/30/2024 12:12 PM TITLE DEPARTMENT MANAGER Melania Bishop DO HEMATOLOGY Final Resu lt [employer] [facility] [address] [place] [address], [email or web address] [address] * (ABNORMAL) COMP METABOLIC PANEL (06/30/2024 12:11 PM TITLE DEPARTMENT MANAGER) Pathologist [facility] GLUCOSE 95 65 - 99 mg/dL [facility] Comment: Fasting reference interval UREA NITROGEN (BUN) 13 7 - 25 mg/dL [facility] CREATININE 0.57 0.50 - 1.05 mg/dL [facility] EGFR 100 > OR = 60 mL/min/1. 73m2 [facility] BUN/CREATININE RATIO SEE NOTE: (calc) [facility] Comment: Not Reported: BUN and Creatinine are within reference range. SODIUM 132(L) 135 - 146 mmol/L [facility] POTASSIUM 4.4 3.5 - 5.3 mmol/L [facility] CHLORIDE 97(L) 98 - 110 mmol/L [facility] CARBON DIOXIDE 26 20 - 32 mmol/L [facility] CALCIUM 9.5 8.6 - 10.4 mg/dL [facility] PROTEIN, TOTAL 6.7 6.1 - 8.1 g/dL [facility] ALBUMIN 3.7 3.6 - 5.1 g/dL [facility] GLOBULIN 3.0 1.9 - 3.7 g/dL (calc) [facility] ALBUMIN/GLOBULIN RATIO 1.2 1.0 - 2.5 (calc) [facility] BILIRUBIN, TOTAL 0.4 0.2 - 1.2 mg/dL [facility] ALKALINE PHOSPHATASE 80 37 - 153 U/L [facility] AST 53(H) 10 - 35 U/L [facility] ALT 96(H) 6 - 29 U/L [facility] Blood BLOOD SPECIMEN / Unknown 06/30/2024 12:11 PM TITLE DEPARTMENT MANAGER 06/30/2024 12:12 PM TITLE DEPARTMENT MANAGER us Melania Bishop DO CHEMISTRY Final Resu lt [employer] [facility] [address] [place] [address], [facility] [address] [place] [address] * ECHO TTE COMPLETE WO CONTRAST (06/26/2024 9:26 AM TITLE DEPARTMENT MANAGER) AORTIC VALVE MEAN PG 5 mmHg EJECTION FRACTION 79 % LVEDD 3.6 cm EJECTION FRACTION > 75% Anatomical Region Laterality Modality Ultrasound 06/26/2024 8:40 AM TITLE DEPARTMENT MANAGER Narrative 06/26/2024 1:26 PM TITLE DEPARTMENT MANAGER ECHOCARDIOGRAM SHAYY HOOKER : 1955 68 years Study Date: 06/26/2024 8:40:37 AM Gender: F BP: 166/98 mmHg Height: 173.00 cm BSA: 1.89 m Weight: 75.00 kg Tech: [facility] Referring MD: CAROL PTITS Site: [facility] Reading Location: Mobile- Patient Location: Inpatient. Procedure: 2D, Color Doppler and Spectral Doppler. Indication for study: A-fib Cardiac Rhythm: Sinus tachycardia.Study quality: Fair. Final Impressions: 1. Normal LV size, normal wall thickness, hyperdynamic global systolic function with an estimated EF of > 75%. 2. Right ventricular cavity size is normal, global systolic RV function is normal. 3. No significant valve disease detected. Chamber Sizes and Function Normal left ventricular size, normal wall thickness, hyperdynamic global systolic function with an estimated EF of > 75%. No resting regional wall motion abnormality visualized. Left atrial size is normal. Left atrial pressure is normal. Right ventricular cavity size is normal, global systolic RV function is normal. RV wall thickness is normal. The right atrium is normal. Right atrial volume index is 11 ml/m . Right atrial area is 11 cm . The pulmonary artery is of normal size and origin. The sinus of Valsalva is normal sized. The ascending aorta is normal sized. Valves, RV Pressures and Diastolic Function The aortic valve is normal in structure and trileaflet, no stenosis and no regurgitation. The mitral valve is normal in structure, trace mitral regurgitation. Normal diastolic function. The tricuspid valve is normal in structure. Tricuspid regurgitation is regurgitation is not evident. The pulmonic valve is normal. No pulmonary regurgitation. Masses, Effusion, Shunts There is no pericardial effusion. The inferior vena cava is normal sized, respiratory size variation greater than 50%. No left to right shunting was detected by limited color flow Doppler interrogation of the interatrial septum. MEASUREMENTS AND CALCULATIONS 2-D Measurements and LV Function: LVID (d) 3.6 cm LV FS% (2D) 47 % LVID (s) 1.9 cm LVOT diameter 2.0 cm IVS (d) 1.0 cm HR 112 bpm LVPW (d) 1.0 cm LA Vol index 13 ml/m2 Ao Sinus 3.0 cm RA Vol index 11 ml/m2 Asc Ao 2.8 cm RA area 11 cm LA 3.4 cm RV Max 4C (d) 3.3 cm Diastology: Mitral Tissue Doppler E Peak 0.6 m/s e', Septum 0.10 m/s A Peak 1.0 m/s e', Lateral 0.09 m/s E/A 0.6 E/e' Average 6.19 DT 103 msec Aortic Valve: Vmax 1.5 m/s WADE (V) 3.12 cm VTI 0.25 m WADE (I) 2.75 cm LVOT V max 1.5 m/s Max PG 9 mmHg LVOT VTI 0.22 m Mean PG 5 mmHg SV 70 ml Dim Index 0.87 SV index 37 ml/m CO 7.8 l/min CI 4.1 l/min/m Mitral Valve: MVA 7.4 cm MV P 1/2 30 msec MV Mean G 3 mmHg MV VTI 0.14 m Tricuspid Valve and estimated PA pressures: TAPSE 2.4 cm Pulmonic Valve: PV AT 81 msec . This study was interpreted by an [facility] accredited facility. CC: Med/Surg - IP [facility], [facility] (med records) [facility]. Final Procedure Note Jordy Arroyo MD - 06/26/2024 ECHOCARDIOGRAM SHAYY HOOKER : 1955 68 years Study Date: 06/26/2024 8:40:37 AM Gender: F BP: 166/98 mmHg Height: 173.00 cm BSA: 1.89 m Weight: 75.00 kg Tech: [facility] Referring MD: CAROL PITTS Site: [facility] Reading Location: Mobile-IP Patient Location: Inpatient. Procedure: 2D, Color Doppler and Spectral Doppler. Indication for study: A-fib Cardiac Rhythm: Sinus tachycardia.Study quality: Fair. Final Impressions: 1. Normal LV size, normal wall thickness, hyperdynamic global systolicfunction with an estimated EF of > 75%. 2. Right ventricular cavity size is normal, global systolic RV functionis normal. 3. No significant valve disease detected. Chamber Sizes and Function Normal left ventricular size, normal wall thickness, hyperdynamic globalsystolic function with an estimated EF of > 75%. No resting regional wallmotion abnormality visualized. Left atrial size is normal. Left atrialpressure is normal. Right ventricular cavity size is normal, globalsystolic RV function is normal. RV wall thickness is normal. The rightatrium is normal. Right atrial volume index is 11 ml/m . Right atrialarea is 11 cm . The pulmonary artery is of normal size and origin. Thesinus of Valsalva is normal sized. The ascending aorta is normal sized. Valves, RV Pressures and Diastolic Function The aortic valve is normal in structure and trileaflet, no stenosis and noregurgitation. The mitral valve is normal in structure, trace mitralregurgitation. Normal diastolic function. The tricuspid valve is normal instructure. Tricuspid regurgitation is regurgitation is not evident. Thepulmonic valve is normal. No pulmonary regurgitation. Masses, Effusion, Shunts There is no pericardial effusion. The inferior vena cava is normal sized,respiratory size variation greater than 50%. No left to right shunting wasdetected by limited color flow Doppler interrogation of the interatrialseptum. MEASUREMENTS AND CALCULATIONS 2-D Measurements and LV Function: LVID (d) 3.6 cm LV FS% (2D) 47 % LVID (s) 1.9 cm LVOT diameter 2.0 cm IVS (d) 1.0 cm HR 112 bpm LVPW (d) 1.0 cm LA Vol index 13 ml/m2 Ao Sinus 3.0 cm RA Vol index 11 ml/m2 Asc Ao 2.8 cm RA area 11 cm LA 3.4 cm RV Max 4C (d) 3.3 cm Diastology: Mitral Tissue Doppler E Peak 0.6 m/s e', Septum 0.10 m/s A Peak 1.0 m/s e', Lateral 0.09 m/s E/A 0.6 E/e' Average 6.19 DT 103 msec Aortic Valve: Vmax 1.5 m/s WADE (V) 3.12 cm VTI 0.25 m WADE (I) 2.75 cm LVOT V max 1.5 m/s Max PG 9 mmHg LVOT VTI 0.22 m Mean PG 5 mmHg SV 70 ml Dim Index 0.87 SV index 37 ml/m CO 7.8 l/min CI 4.1 l/min/m Mitral Valve: MVA 7.4 cm MV P 1/2 30 msec MV Mean G 3 mmHg MV VTI 0.14 m Tricuspid Valve and estimated PA pressures: TAPSE 2.4 cm Pulmonic Valve: PV AT 81 msec . This study was interpreted by an [facility] accredited facility. CC: Med/Surg - IP [facility], [facility] (med records) [facility]. Final Carol Pitts MD ECHO ORD Final Result * (ABNORMAL) XR DXA BONE DENSITY 2 SITES AXIAL [14580.1] (04/12/2024 1:26 PM TITLE DEPARTMENT MANAGER) Anatomical Region Laterality Modality Spine, HIPS, HIPL, HIPR Other Impressions 04/13/2024 2:13 PM TITLE DEPARTMENT MANAGER Osteoporosis. RECOMMENDATIONS: The National Osteoporosis Foundation recommends pharmacologic treatment for patients with T-scores of -2.5 or less, patients with prior history of fragility fractures, or patients with 10-year probability of greater than 3% at hips or greater than 20% of suffering major osteoporotic fractures. Recommend continued optimization of calcium and vitamin D intake through dietary means and/or supplementation and regular exercise. Consider pharmacologic therapy for osteoporosis. Follow-up bone density reading in 2 years if therapy initiated to assess therapeutic efficacy. Maryam Ziegler PA-C [facility] 04/13/2024 Narrative 04/13/2024 2:13 PM TITLE DEPARTMENT MANAGER For Patients: Results are automatically released to your [facility] ([employer]) account once available, in compliance with federal regulations. This means that you may see your results before your provider has had a chance to review them. Please allow 2-3 business days for your provider to comment on the results. XR DXA Bone Mineral Density (BMD) EXAM LOCATION: [facility] [address] [address] PATIENT NAME: Shayy Hooker DATE OF : 1955 EXAM DATE: 04/12/2024 REQUESTING PROVIDER: Melania Bishop DO GENDER AT : female HEIGHT: 5' 8 (04/05/2024) WEIGHT: 156 lb 6.4 oz (04/05/2024) MENOPAUSAL STATUS: Postmenopausal RACE/ETHNICITY: White RISK FACTORS: Smoking (current), Smoking (prior), and White Race CURRENT MEDICATION FOR BONE LOSS: NONE INDICATION: Menopause COMPARISON DATE(S): None DXA scans are compared to prior studies for a patient only when the two (or more) studies were performed on the same scanner. It is not possible to compare data generated on one scanner to data from another because there are not standards in DXA equipment. This applies even if the two scanners are made by the same nascar racer. PROCEDURE: Dual-energy x-ray absorptiometry performed with routine technique. Reporting is completed in the form of a T-score. The T-score represents the standard deviation from peak bone mass based on young healthy adult. A Z-score is used for diagnosis in premenopausal women, and for men under the age of 50. FINDINGS: RESULT LUMBAR SPINE L1 - L2 BMD: 1.110 g/cm2 T-Score: - 0.5 Z-Score: + 0.9 Change from prior: None RESULTS FEMUR Left femoral neck BMD: 0.784 g/cm2 T-Score: - 1.8 Z-Score: - 0.4 Change from prior: None Right femoral neck BMD: 0.696 g/cm2 T-Score: - 2.5 Z-Score: - 1.0 Change from prior: None Left hip BMD: 0.815 g/cm2 T-Score: - 1.5 Z-Score: - 0.3 Change from prior: None Right hip BMD: 0.701 g/cm2 T-Score: - 2.4 Z-Score: - 1.2 Change from prior: None WHO criteria: Normal: T-score at or above -1 SD Osteopenia: T-score between -1.1 and -2.4 SD Osteoporosis: T-score at or below -2.5 SD FRAX RISK CALCULATION (USED FOR OSTEOPENIA ONLY): 10-year probability of major osteoporotic fracture: 14.8%. 10-year probability of hip fracture: 5.2%. us Melania Bishop DO DEXA Final Resu lt * CT CHEST SCREENING LOW DOSE WO CONTRAST (04/12/2024 1:09 PM TITLE DEPARTMENT MANAGER) Anatomical Region Laterality Modality Computed Tomogra phy Impressions 04/14/2024 9:15 AM TITLE DEPARTMENT MANAGER 1. Stable small left upper lobe pulmonary nodule. Lung-RADS Category 2, benign. Continue annual screening with low-dose chest CT in 12 months. 2. Mosaic attenuation throughout the lungs is nonspecific, though can be seen in the setting of small airways disease. 3. Pulmonary emphysema. Please note that all CT scans at this facility use dose modulation, iterative reconstruction and/or weight-based dosing when appropriate to reduce radiation dose to as low as reasonably achievable. Dictated by: Misael Almonte MD @04/12/2024 1:51:44 PM /sp Neuroradiologist Narrative 04/14/2024 9:15 AM TITLE DEPARTMENT MANAGER For Patients: As a result of the Century Cures Act, medical imaging exams and procedure reports are released immediately into your electronic medical record. You may view this report before your referring provider. If you have questions, please contact your health care provider. CT CHEST SCREENING LOW-DOSE WITHOUT CONTRAST 04/12/2024 INDICATION: Lung cancer screening. TECHNIQUE: Non-contrast CT images of the chest. COMPARISON: CT chest 02/25/2022. FINDINGS: No focal consolidation, pleural effusion, or pneumothorax. Mild to moderate upper lobe predominant centrilobular emphysema. Biapical scarring. Stable scarring right upper and right middle lobes. Postsurgical changes along the right minor fissure. Stable 2 mm solid nodule left upper lobe (series 5 image 63). Mosaic attenuation throughout the lungs. Heart size is normal. No pericardial effusion. Coronary artery atherosclerotic calcifications. No mediastinal or hilar lymphadenopathy. Stable small cyst in the left hepatic lobe. Mild thoracic spondylosis. No aggressive osseous lesions. us Melania Bishop DO CT Final Resu lt * XR MAMMO BILAT SCREENING (04/07/2024 11:42 AM CDT) Anatomical Region Laterality Modality BREASTS, Breast Left, Breast Right Bilateral Mammography Impressions 04/07/2024 3:27 PM CDT There is no radiographic evidence for malignancy. Recommend annual mammograms. MAMMOGRAM ASSESSMENT: ACR 1 Negative PATIENTS: You will also receive a letter with your examination results in an easy to read format. If you have questions about your results, please contact your referring provider. Narrative 04/07/2024 3:27 PM CDT For Patients: As a result of the Century Cures Act, medical imaging exams and procedure reports are released immediately into your electronic medical record. You may view this report before your referring provider. If you have questions, please contact your health care provider. XR MAMMO BILAT SCREENING [[id number]] CLINICAL HISTORY: This is an asymptomatic 68 y.o. patient. INDICATION FOR EXAM: Mammogram Screening. TECHNIQUE: CC & MLO views were obtained. This study was evaluated with the assistance of Computer-Aided Detection. COMPARISON FILM: Yes 02/18/22 [facility] 02/15/21 [facility] FINDINGS: There are scattered areas of fibroglandular density. There are no dominant masses, suspicious micro calcifications or areas of architectural distortion. us Melaniakrish Bishop DO MAMMO Final Resu lt * (ABNORMAL) LIPID PANEL W REFLEX MEASURED LDL (04/05/2024 11:33 AM CDT) CHOLESTEROL, TOTAL 215(H) <200 mg/dL [facility] HDL CHOLESTEROL 48(L) > OR = 50 mg/dL [facility] TRIGLYCERIDES 376(H) <150 mg/dL [facility] Comment: If a non-fasting specimen was collected, consider repeat triglyceride testing on a fasting specimen if clinically indicated. Sony et al. J. of Clin. Lipidol. 2015;9:129-169. LDL-CHOLESTEROL 113(H) mg/dL (calc) [facility] Comment: Reference range: <100 Desirable range <100 mg/dL for primary prevention; <70 mg/dL for patients with CHD or diabetic patients with > or = 2 CHD risk factors. LDL-C is now calculated using the Bill-Ezio calculation, which is a validated novel method providing better accuracy than the Friedewald equation in the estimation of LDL-C. Bill MOYER et al. VEGA. 2013;310(19): 3753-1745 (http://education.[employer]/faq/TZK576) CHOL/HDLC RATIO 4.5 <5.0 (calc) [facility] NON HDL CHOLESTEROL 167(H) <130 mg/dL (calc) [facility] Comment: For patients with diabetes plus 1 major ASCVD risk factor, treating to a non-HDL-C goal of <100 mg/dL (LDL-C of <70 mg/dL) is considered a therapeutic option. Blood BLOOD SPECIMEN / Unknown 04/05/2024 11:33 AM CDT 04/05/2024 11:33 AM CDT Melania Bishop DO CHEMISTRY Final Resu lt [employer] [facility] [address] [place] [address], [email or web address] [address] [place] [address] * COLONOSCOPY (02/28/2021 8:30 AM CDT) 02/28/2021 8:30 AM CDT Narrative Transcriptions Bill Parnell MD - 02/28/2021 9:39 AM CDT Patient Name: Shayy Torsch Procedure Date: 02/28/2021 Gender: Female Date of : 1955 Admit Type: Outpatient Procedure: Colonoscopy Proceduralist: Bill Parnell MD , Lucie Draper (Nurse) Referring MD: Anahi Frazier Indications/Pre-Op Diagnosis: High risk colon cancer surveillance:Personal history of sessile serrated colon polyp(less than 10 mm in size) with no dysplasia, Last colonoscopy: September 2014 Medications: Fentanyl 100 micrograms IV, Midazolam 4 mgIV, The level of sedation administered wasmoderate Procedure Description: The patient had risks, benefits and alternatives explained to andgave informed consent. The patient had a stable cardiopulmonary status and judged an adequate candidate for conscious sedation. The [id number] was passed through the anus and advanced tothe cecum, identified by appendiceal orifice and ileocecal valve. The colonoscopy was performed without difficulty. The patient toleratedthe procedure well. The quality of the bowel preparation was good. The ileocecal valve, appendiceal orifice, and rectum were photographed. Complications: No immediate complications. Estimated Blood Loss & Specimen: Estimated blood loss: none. Specimen collected - None Findings: The perianal and digital rectal examinations were normal. The colon (entire examined portion) was moderately redundant. The exam was otherwise without abnormality on direct and retroflexion views. Impressions/Post-Op Diagnosis: - Redundant colon. - The examination was otherwise normal on direct and retroflexionviews. - No specimens collected. Recommendation: - Patient has a contact number available for emergencies. The signsand symptoms of potential delayed complications were discussed with the patient. Return to normal activities tomorrow. Written discharge instructions were provided to the patient. - Resume previous diet. - Continue present medications. - Repeat colonoscopy in 5 years for surveillance. Moderate Sedation: Moderate (conscious) sedation was administered by the endoscopy nurse and supervised by the endoscopist. The following parameters were monitored: oxygen saturation, heart rate, respiratory rate, blood pressure, adequacy of pulmonary ventilation and reponse to care. Please refer to the patient's medical record flowsheets and nursing notes for moderate sedation details. Total physician intraservice time was 20 minutes. Bill Parnell MD 02/28/2021 9:39:10 AM This report has been signed electronically. Note Initiated On: 02/28/2021 8:30 AM Procedure Code(s): --- Professional --- 05704, Colonoscopy, flexible; diagnostic, including collection of specimen(s) bybrushing or washing, when performed (separateprocedure) Diagnosis Code(s): --- Professional --- Z86.010, Personal history of colonicpolyps Q43.8, Other specified congenitalmalformations of intestine CPT copyright 2020 [employer]. All rights reserved. The codes documented in this report are preliminary and upon rayon winder reviewmay be revised to meet current compliance requirements. Scope In: 9:08:30 AM Scope Withdrawal Time 0 hours 7 minutes 7 seconds Scope Out: 9:27:50 AM us Bill Parnell MD PROCEDURE ORD Final Res ult * ANTI HCV [74432.2] (02/11/2019 10:38 AM CDT) HEPATITIS C ANTIBODY Non-React monae Non-React monae 02/11/2019 8:40 PM CDT [facility] Comment:Antibodies to HCV no t detected; does not exclude the possibility of exposure to HCV. Blood BLOOD SPECIMEN / Unknown Venipuncture / Unknown 02/11/2019 10:38 AM CDT 02/11/2019 10:46 AM CDT us Anahi Frazier MD SEND OUTS Final Resul t [facility] [address] [place] [address], [place] from Last 3 Months or Most Recently Relevant to Health Maintenance Insurance [employer] BLUE MR PB ONLY Advance Directives * Full Code (Latest Code Status on File) Date Activated Date Inactivated Comments 12/26/2016 2:51 PM 12/30/2016 6:44 PM * Full Code Date Activated Date Inactivated Comments 12/26/2016 2:39 AM 12/26/2016 2:09 PM * Full Code Date Activated Date Inactivated Comments 12/23/2016 8:19 PM 12/26/2016 2:39 AM * Full Code Date Activated Date Inactivated Comments 02/01/2005 10:35 PM 02/05/2005 6:24 PM * Full Code Date Activated Date Inactivated Comments 02/01/2005 8:03 PM 02/01/2005 10:35 PM Care Teams Financial Sales Manager Relationship Specialty Start Date End Date Mel[place] [address] PCP - General Family Practice 04/02/23
[2024-08-22] MEDS: ASPIRIN 81 MG TAB.CHEW 324 MG PO (11:49)
[2024-08-22] MEDS: NITROGLYCERIN 0.4 MG TAB.SUBL SUBLINGUAL (11:50)
[2024-08-22 11:53] LABS: Lactate* 1.3 mmol/L (0.5-1.9)
--- OUTSIDE RECORDS SUMMARY | 2024-08-22 11:53 | XMS_ITS | Clinical Summary ---
Author Organization [facility] Address [address] [place] [address] Care Team Providers Care Loss Prevention Supervisor Name Role Phone Melania Bishop Primary Care Provider [phone] Allergies Active Allergy Reactions Criticality Noted Date [...] elbow 08/31/2011 Overview (08/31/2011): Left elbow. Saw Wildwoodjoy Espinoza with 3rd injection August 2011. Tobacco use disorder 12/18/2006 Depressive disorder, not elsewhere classified Resolved Problems Problem Noted Date Diagnosed Date Resolved Date First detected episode of atrial fibrillation 06/30/19 25 08/18/2024 Anticoagulation monitoring, INR range 2-3 06/30/2024 08/18/2024 Colon polyp 11/07/2011 07/07/2013 Sciatica 02/23/2009 12/16/2013 Encounters Date Type Department Care Team Description 08/18/2024 1:10 PM CDT Office Visit [facility] [address] [place] [address] Melania Bishop, DO Follow Up (Has seen cardiology, stopped warfarin, abd pain has stopped. Now having more arthritic pain in shoulders. Also having productive coughing more often. ) 08/18/2024 Travel 08/10/2024 11:00 AM HOOP PUNCH AND COILER OPERATOR HELPER Office Visit [facility] [address] [place] [address] Baljit Camarillo MD Follow Up (Echo 06/26/2024) 08/10/2024 8:00 AM HOOP PUNCH AND COILER OPERATOR HELPER Orders Only [facility] [address] [place] [address] Lab, [place] [facility] 08/10/2024 Travel 08/06/2024 1:00 PM HOOP PUNCH AND COILER OPERATOR HELPER Orders Only [facility] [address] [place] [address] Lab, [facility] 08/06/2024 Anticoagulation (warfarin) [facility] [address] [place] [address] 1, [facility] Anticoagulation 08/06/2024 Travel 07/30/2024 12:45 PM HOOP PUNCH AND COILER OPERATOR HELPER Orders Only [facility] [address] [place] [address] Lab, [facility] 07/30/2024 Anticoagulation (warfarin) [facility] [address] [place] [address] 1, [facility] Anticoagulation 07/30/2024 Travel 07/23/2024 Anticoagulation (warfarin) [facility] [address] [place] [address] 1, [facility] Anticoagulation 07/22/2024 1:30 PM HOOP PUNCH AND COILER OPERATOR HELPER Orders Only [facility] [address] [place] [address] Lab, [facility] 07/22/2024 Travel 07/19/2024 1:30 PM HOOP PUNCH AND COILER OPERATOR HELPER Orders Only [facility] [address] [place] [address] Lab, [facility] 07/19/2024 Refill [facility] [address] [place] [address] Melania Bishop, DO Refill Request 07/19/2024 Anticoagulation (warfarin) [facility] [address] [place] [address] 1, [facility] Anticoagulation 07/19/2024 Travel 07/16/2024 Anticoagulation (warfarin) [facility] [address] [place] [address] 1, [facility] Anticoagulation 07/15/2024 1:30 PM HOOP PUNCH AND COILER OPERATOR HELPER Orders Only [facility] [address] [place] [address] Lab, [facility] 07/15/2024 Travel 07/12/2024 10:00 AM HOOP PUNCH AND COILER OPERATOR HELPER Orders Only [facility] [address] [place] [address] Lab, [facility] 07/12/2024 Anticoagulation (warfarin) [facility] [address] [place] [address] 1, [facility] Anticoagulation 07/12/2024 Travel 07/09/2024 Refill [facility] [address] [place] [address] Melania Bishop, DO Refill Request (ATORVASTATIN) 07/08/2024 10:15 AM HOOP PUNCH AND COILER OPERATOR HELPER Orders Only [facility] [address] [place] [address] Lab, [facility] 07/08/2024 Telephone [facility] [address] [place] [address] Melania Bishop, DO Follow Up 07/08/2024 Anticoagulation (warfarin) [facility] [address] [place] [address] 1, [facility] Anticoagulation 07/08/2024 Travel 07/06/2024 Orders Only [facility] [place] [address] Melania Bishop, DO <No scans attached> 07/05/2024 10:00 AM HOOP PUNCH AND COILER OPERATOR HELPER Orders Only [facility] [place] [address] Lab, [facility] 07/05/2024 Telephone [facility] [place] [address] Melania Bishop, Anticoagulation (Request approval of Warfarin dosing outside of AC protocol) 07/05/2024 Anticoagulation (warfarin) [facility] [address] [place] [address] 1, [facility] Anticoagulation 07/05/2024 Travel 07/05/[address] [address] Melania Bishop, Letter For Work 06/30/2024 11:15 AM HOOP PUNCH AND COILER OPERATOR HELPER Office Visit [address] [address] Melania Bishop, Hospital F/U (Influenza and SOB, DOD 06/27/24) 06/30/2024 Anticoagulation (warfarin) [facility] [address] [place] [address] 1, [facility] Anticoagulation (Initial) 06/30/[address] [address] Melania Bishop, Anticoagulation (Target end date) 06/30/[address] [address] Melania Bishop DO Anticoagulation (Standing Labs) 06/30/2024 Travel 06/27/2024 Orders Only [facility] [address] [place] [address] Melania Bishop DO 1 scan: (1-Ord) ZIO REPORT 06/26/2024 10:00 AM HOOP PUNCH AND COILER OPERATOR HELPER Ancillary Procedure [facility] [address] [facility] [place] [address] 06/21/2024 Refill [facility] [address] [place] [address] Melania Bishop DO Refill Request (Metoprolol ER Succinate 100mg ) from Last 3 Months Immunizations Immunization Administration Dates Next Due AMB Influenza, IIV4 PF (=>6 mos Flulaval,Fluzone Fluarix)(Flu Clinic Only) 05/18/2014 COVID-19 VACCINE SPIKEVAX (M ODERNA 50MCG/0.5ML) 12YO+ PFS 04/05/2024,04/02/2023 COVID-19 vaccine ([employer] NTech 30mcg/0.3mL) PF, MDV 07/02/2021,11/02/2020,10/09/2020 Influenza A [...] on file Legal Sex Female 5:41 AM HOOP PUNCH AND COILER OPERATOR HELPER Gender Identity Not on file Sexual Orientation [...] Description 11/18/2024 12:45 PM CDT Office Visit [facility] [address] [place] [address] Melania Bishop DO [address] [place] [address] Health Maintenance Due Date Last Done Comments [...] 12/22/2012, 09/03/2001 Medical Devices Implanted Type Area Travertine Installer Device Identifier Shelf Expiration Date Model / Serial / Lot Kit Cleo Marcial - [id number] Implanted:Qty: 1 on 02/01/2005 at [facility] N/A: Spine SOFAMOR DANEK [id number] / [id number] / [id number] Bone Canclls 15ml Chips [facility] [[id number]] [[id number]][ Implanted:Qty: 1 on 02/01/2005 at [facility] Explanted:at [facility] (Quantity not on file) Lumbar Vertebrae [employer]ource 02/03/2009 [id number] / [id number] / [id number] Description:cancellous chips 15cc ID# [id number] Avs Tl Spacer Deg Spacer [id number] Implanted:Qty: 1 on 02/01/2005 at [facility] N/A: Spine [id number] / / Description:kimo spine av s tl spacer implant #[id number] deg spacer [id number] - [id number] Implanted:Qty: 4 on 02/01/2005 at [facility] Lumbar Vertebrae [employer] [id number] / / [id number] - [id number] Implanted:Qty: 2 on 02/01/2005 at [facility] N/A: Lumbar Vertebrae [id number] / / Description:pRE-BENT RAD LISA [id number] - [id number] Implanted:Qty: 4 on 02/01/2005 at [facility] N/A: Lumbar Vertebrae [employer] [id number] / / Description:TYRA BLOCKERS Procedures Procedure Name Priority Date/Time Associated Diagnosis Comments TSH Routine 08/10/2024 11:45 AM HOOP PUNCH AND COILER OPERATOR HELPER First detected episode of atrial fibrillation (HC) INR,POCT Routine 08/06/2024 1:01 PM HOOP PUNCH AND COILER OPERATOR HELPER First detected episode of atrial fibrillation (HC) Anticoagulation monitoring, INR range 2-3 INR,POCT Routine 07/30/2024 12:44 PM HOOP PUNCH AND COILER OPERATOR HELPER First detected episode of atrial fibrillation (HC) Anticoagulation monitoring, INR range 2-3 PROTIME-INR Routine 07/22/2024 12:40 PM HOOP PUNCH AND COILER OPERATOR HELPER First detected episode of atrial fibrillation (HC) Anticoagulation monitoring, INR range 2-3 PROTIME-INR Routine 07/19/2024 11:26 AM HOOP PUNCH AND COILER OPERATOR HELPER First detected episode of atrial fibrillation (HC) Anticoagulation monitoring, INR range 2-3 HEPATIC FUNCTION PANEL Routine 07/15/2024 1:32 PM HOOP PUNCH AND COILER OPERATOR HELPER Transaminitis PROTIME-INR Routine 07/15/2024 1:30 PM HOOP PUNCH AND COILER OPERATOR HELPER First detected episode of atrial fibrillation (HC) Anticoagulation monitoring, INR range 2-3 PROTIME-INR Routine 07/12/2024 9:51 AM HOOP PUNCH AND COILER OPERATOR HELPER First detected episode of atrial fibrillation (HC) Anticoagulation monitoring, INR range 2-3 PROTIME-INR Routine 07/08/2024 10:07 AM HOOP PUNCH AND COILER OPERATOR HELPER First detected episode of atrial fibrillation (HC) Anticoagulation monitoring, INR range 2-3 INR,POCT Routine 07/05/2024 9:57 AM HOOP PUNCH AND COILER OPERATOR HELPER First detected episode of atrial fibrillation (HC) Anticoagulation monitoring, INR range 2-3 EXTENDED HOLTER Routine 07/05/2024 Atrial fibrillation (HC) PROTIME-INR Routine 06/30/2024 12:11 PM HOOP PUNCH AND COILER OPERATOR HELPER First detected episode of atrial fibrillation (HC) COMP METABOLIC PANEL Routine 06/30/2024 12:11 PM HOOP PUNCH AND COILER OPERATOR HELPER Hospital discharge follow-up Transaminitis Abdominal pain, RUQ (right upper quadrant) CBC WITH AUTO DIFFERENTIAL Routine 06/30/2024 12:11 PM HOOP PUNCH AND COILER OPERATOR HELPER Abdominal pain, RUQ (right upper quadrant) ECHO TTE COMPLETE WO CONTRAST Routine 06/26/2024 9:26 AM HOOP PUNCH AND COILER OPERATOR HELPER New onset a-fib (HC) XR DXA BONE DENSITY 2 SITES AXIAL Routine 04/12/2024 1:26 PM HOOP PUNCH AND COILER OPERATOR HELPER Menopause CT CHEST SCREENING LOW DOSE WO CONTRAST Routine 04/12/2024 1:09 PM HOOP PUNCH AND COILER OPERATOR HELPER Tobacco use disorder Personal history of nicotine [...] Maintenance Results * TSH (08/10/2024 11:45 AM HOOP PUNCH AND COILER OPERATOR HELPER) TSH 1.29 0.40 - 4.50 mIU/L [facility] Blood BLOOD SPECIMEN / Unknown 08/10/2024 11:45 AM HOOP PUNCH AND COILER OPERATOR HELPER 08/10/2024 11:45 AM HOOP PUNCH AND COILER OPERATOR HELPER Baljit Camarillo MD CHEMISTRY Final Result [facility] [address] [place] [address], [place] [phone] [facility] [address] [place] [address] * (ABNORMAL) INR - POCT [14677.2] - Standing Order (08/06/2024 1:01 PM HOOP PUNCH AND COILER OPERATOR HELPER) Only the most recent of3 resultswithin the time period is included. INR 1.9(H) ratio [facility] Comment: INRs >2.9 may be [...] PROTHROMBIN TIMEP 22.9(H) 10.5 - 13.1 sec [facility] Comment: Point of care fingerstick Prothrombin Time/INR results may vary from venous Prothrombin Time/INR methodologies. Any results exhibiting inconsistency with the patient's clinical status should be repeated using a venous Prothrombin Time/INR method. Blood BLOOD SPECIMEN / Unknown 08/06/2024 1:01 PM HOOP PUNCH AND COILER OPERATOR HELPER 08/06/2024 1:01 PM HOOP PUNCH AND COILER OPERATOR HELPER Melania Bishop DO LABORATORY Final Resu lt [facility] [address] [place] [address], [facility] [address] [place] [address] * (ABNORMAL) PROTIME-INR [96640.0] - Standing Order (07/22/2024 12:40 PM HOOP PUNCH AND COILER OPERATOR HELPER) Only the most recent of6 resultswithin the time period is included. INR 2.4(H) <1.3 07/22/2024 10:20 PM HOOP PUNCH AND COILER OPERATOR HELPER [facility] PROTIME 27.6(H) 10.6 - 12.4 sec 07/22/2024 10:20 PM HOOP PUNCH AND COILER OPERATOR HELPER [facility] Blood BLOOD SPECIMEN / Unknown [facility] / Unknown 07/22/2024 12:40 PM HOOP PUNCH AND COILER OPERATOR HELPER 07/22/2024 12:40 PM HOOP PUNCH AND COILER OPERATOR HELPER Narrative [facility] - 07/22/2024 10:20 PM HOOP PUNCH AND COILER OPERATOR HELPER Therapeutic Range 2.0-3.0 for most anticoagulated patients [...] Melania Bishop DO HEMATOLOGY Final Resu lt [facility] [address] [place] [address], * LIVER PANEL (HEPATIC FUNCTION PANEL) (07/15/2024 1:32 PM HOOP PUNCH AND COILER OPERATOR HELPER) PROTEIN, TOTAL 7.0 6.1 - 8.1 g/dL [facility] ALBUMIN 4.2 3.6 - 5.1 g/dL [facility] GLOBULIN 2.8 1.9 - 3.7 g/dL (calc) [facility] [place] ALBUMIN/GLOBULIN RATIO 1.5 1.0 - 2.5 (calc) [facility] BILIRUBIN, TOTAL 0.4 0.2 - 1.2 mg/dL [facility] BILIRUBIN, DIRECT 0.1 < OR = 0.2 mg/dL [facility] BILIRUBIN, INDIRECT 0.3 0.2 - 1.2 mg/dL (calc) [facility] ALKALINE PHOSPHATASE 87 37 - 153 U/L [facility] AST 24 10 - 35 U/L [facility] ALT 23 6 - 29 U/L [facility] Blood BLOOD SPECIMEN / Unknown 07/15/2024 1:32 PM HOOP PUNCH AND COILER OPERATOR HELPER 07/15/2024 1:33 PM HOOP PUNCH AND COILER OPERATOR HELPER us Melania Bishop DO CHEMISTRY Final Resu lt [facility] [address] [place] [address], [facility] [facility] [address] [facility] [place] [address] * EXTENDED HOLTER (07/05/2024) us Melania Bishop DO CARDIAC SERVICES ORD Final Result * (ABNORMAL) CBC AND DIFFERENTIAL (06/30/2024 12:11 PM HOOP PUNCH AND COILER OPERATOR HELPER) WHITE BLOOD CELL COUNT 16.4(H) 3.8 - [...] BLOOD SPECIMEN / Unknown 06/30/2024 12:11 PM HOOP PUNCH AND COILER OPERATOR HELPER 06/30/2024 12:12 PM HOOP PUNCH AND COILER OPERATOR HELPER Melania Bishop DO HEMATOLOGY Final Resu lt [facility] [address] [place] [address], [facility] [address] * (ABNORMAL) COMP METABOLIC PANEL (06/30/2024 12:11 PM HOOP PUNCH AND COILER OPERATOR HELPER) Pathologist [facility] GLUCOSE 95 65 - 99 mg/dL [facility] Comment: Fasting reference interval UREA [...] BLOOD SPECIMEN / Unknown 06/30/2024 12:11 PM HOOP PUNCH AND COILER OPERATOR HELPER 06/30/2024 12:12 PM HOOP PUNCH AND COILER OPERATOR HELPER us Melania Bishop DO CHEMISTRY Final Resu lt [facility] [address] [place] [address], [facility] [address] [place] [address] * ECHO TTE COMPLETE WO CONTRAST (06/26/2024 9:26 AM HOOP PUNCH AND COILER OPERATOR HELPER) AORTIC VALVE MEAN PG 5 mmHg EJECTION FRACTION 79 % LVEDD 3.6 cm EJECTION FRACTION > 75% Anatomical Region Laterality Modality Ultrasound 06/26/2024 8:40 AM HOOP PUNCH AND COILER OPERATOR HELPER Narrative 06/26/2024 1:26 PM HOOP PUNCH AND COILER OPERATOR HELPER ECHOCARDIOGRAM SHAYY HOOKER : 1955 68 years Study Date: 06/26/2024 8:40:37 AM Gender: F BP: 166/98 mmHg Height: 173.00 cm BSA: 1.89 m Weight: 75.00 kg Tech: [facility] Referring MD: CAROL PITTS Site: [facility] Reading Location: Mobile- Patient Location: [...] . This study was interpreted by an [facility] accredited facility. CC: Med/Surg - IP [facility], [facility] (med records) [facility]. Final Procedure Note Jordy Arroyo MD - 06/26/2024 ECHOCARDIOGRAM SHAYY HOOKER : 1955 68 years Study Date: 06/26/2024 8:40:37 AM Gender: F BP: 166/98 mmHg Height: 173.00 cm BSA: 1.89 m Weight: 75.00 kg Tech: [facility] Referring MD: CAROL PITTS Site: [facility] Reading Location: Mobile-IP Patient Location: [...] . This study was interpreted by an [facility] accredited facility. CC: Med/Surg - IP [facility], [facility] (med records) [facility]. Final Carol Pitts MD ECHO ORD Final Result * (ABNORMAL) XR DXA BONE DENSITY 2 SITES AXIAL [36461.1] (04/12/2024 1:26 PM HOOP PUNCH AND COILER OPERATOR HELPER) Anatomical Region Laterality Modality Spine, HIPS, HIPL, HIPR Other Impressions 04/13/2024 2:13 PM HOOP PUNCH AND COILER OPERATOR HELPER Osteoporosis. RECOMMENDATIONS: The National Osteoporosis Foundation recommends [...] to assess therapeutic efficacy. Maryam Ziegler PA-C [facility] 04/13/2024 Narrative 04/13/2024 2:13 PM HOOP PUNCH AND COILER OPERATOR HELPER For Patients: Results are automatically released to your [facility] ([email or web address]) account once available, in compliance with federal regulations. This means that you may see your results before your provider has had a chance to review them. Please allow 2-3 business days for your provider to comment on the results. XR DXA Bone Mineral Density (BMD) EXAM LOCATION: [facility] [address] [facility] [address] PATIENT NAME: Shayy Hooker DATE OF : [...] two scanners are made by the same road roller engineer. PROCEDURE: Dual-energy x-ray absorptiometry performed with routine [...] probability of hip fracture: 5.2%. us Melania Bishpo DO DEXA Final Resu lt * CT CHEST SCREENING LOW DOSE WO CONTRAST (04/12/2024 1:09 PM HOOP PUNCH AND COILER OPERATOR HELPER) Anatomical Region Laterality Modality Computed Tomogra phy Impressions 04/14/2024 9:15 AM HOOP PUNCH AND COILER OPERATOR HELPER 1. Stable small left upper lobe pulmonary [...] PM /sp Neuroradiologist Narrative 04/14/2024 9:15 AM HOOP PUNCH AND COILER OPERATOR HELPER For Patients: As a result of the [...] health care provider. XR MAMMO BILAT SCREENING [[id number]] CLINICAL HISTORY: This is an asymptomatic 68 y.o. patient. INDICATION FOR EXAM: Mammogram Screening. TECHNIQUE: CC & MLO views were obtained. This study was evaluated with the assistance of Computer-Aided Detection. COMPARISON FILM: Yes 02/18/22 [facility] 02/15/21 [facility] FINDINGS: There are scattered areas of fibroglandular [...] ood Stephen TRIGLYCERIDES 376(H) <150 mg/dL [facility] Comment: If a non-fasting specimen was collected, consider repeat triglyceride testing on a fasting specimen if clinically indicated. Sony et al. J. of Clin. Lipidol. 2015;9:129-169. LDL-CHOLESTEROL 113(H) mg/dL (calc) [facility] Comment: Reference range: <100 Desirable range <100 mg/dL for primary prevention; <70 mg/dL for patients with CHD or diabetic patients with > or = 2 CHD risk factors. LDL-C is now calculated using the Bill-Ezio calculation, which is a validated novel method providing better accuracy than the Friedewald equation in the estimation of LDL-C. Bill MOYER et al. VEGA. 2013;310(19): 9378-9613 (http://education.inCyte Innovations/faq/YDC728) CHOL/HDLC RATIO 4.5 <5.0 (calc) [facility] [...] Melania Bishop DO CHEMISTRY Final Resu lt [facility] [address] [place] [address], [facility] [address] [place] [address] * COLONOSCOPY (02/28/2021 8:30 AM CDT) 02/28/2021 [...] adequate candidate for conscious sedation. The [id number] was passed through the anus and advanced [...] 8:30 AM Procedure Code(s): --- Professional --- 49924, Colonoscopy, flexible; diagnostic, including collection of specimen(s) bybrushing or washing, when performed (separateprocedure) Diagnosis Code(s): --- Professional --- Z86.010, Personal history of colonicpolyps Q43.8, Other specified congenitalmalformations of intestine CPT copyright 2020 [employer]. All rights reserved. The codes documented in this report are preliminary and upon director skills reviewmay be revised to meet current compliance requirements. Scope In: 9:08:30 AM Scope Withdrawal Time 0 hours 7 minutes 7 seconds Scope Out: 9:27:50 AM us Bill Parnell MD PROCEDURE ORD Final Res ult * ANTI HCV [57582.2] (02/11/2019 10:38 AM CDT) HEPATITIS C ANTIBODY Non-React monae Non-React monae 02/11/2019 8:40 PM CDT [facility] Comment:Antibodies to HCV no t detected; does not exclude the possibility of exposure to HCV. Blood BLOOD SPECIMEN / Unknown Venipuncture / Unknown 02/11/2019 10:38 AM CDT 02/11/2019 10:46 AM CDT us Anahi Frazier MD SEND OUTS Final Resul t [facility] [address] [place] [address], [place] from Last 3 Months or Most Recently Relevant to Health Maintenance Insurance [employer] [place] [address] Advance Directives * Full Code (Latest Code [...] 8:03 PM 02/01/2005 10:35 PM Care Teams Loss Prevention Supervisor Relationship Specialty Start Date End Date Melania [place] [address] PCP - General Family Practice 04/02/23
--- OUTSIDE RECORDS SUMMARY | 2024-08-22 11:53 | XMS_ITS | Continuity of Care Document ---
Author Organization [facility] Address [address] [place] [address] [address] [place] [address] Phone Care Team Providers Care Mat Sewer Name Role Phone Jordy Purvis Unavailable Unavailable Advance Directives Directive Yes / No Effective Date File Name No Information Encounters Encounter Description Practice Location Reason(s) For Visit Diagnoses Date Provider Providers Copied on Encounter Z [facility], [address] [place], [place] [address] [address], [place], [address], [place] tel:[phone] [facility] No Information Mar-2 9-200 8 Karli Spence. [address] [place] [address] [address], [place], [place], [id number] , [place]. tel:[phone] Family History Family Member Type Diagnosis Age At Onset No Information Payers Payer name Insurance type Covered libertarian ID Authoriza tion(s) No Information Social History [...]
--- NOTE | 2024-08-22 11:54 | ED_ITS ---
HPI - General Adult General Chief complaint: Chest Pain Stated complaint: chest pain Time Seen by Provider: 08/22/24 11:31 Source: patient Mode of arrival: ambulatory Limitations: no limitations History of Present Illness HPI narrative: 68-year-old female presenting today with chest pain. Pain has come on and off for the last couple of weeks but has been constant for the last 4 hours today. Causes her to feel slightly short of breath and lightheaded. Pain is located centrally in her chest and radiates into her jaw bilaterally. Nothing seems to make it better or worse. Over the last couple weeks she noticed that if she stops to rest it would get better. Patient smokes a pack cigarettes per day. She was diagnosed with AFib with RVR during her last hospitalization in June when she had influenza. She was discharged home on Eliquis, could not afford so she switched to Coumadin. 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 She currently only takes metoprolol, atorvastatin and her inhalers. Related Data Home Medications ?Medication ?Instructions ?Recorded ?Confirmed metoprolol succinate 100 mg 100 mg PO DAILY 07/22/23 06/23/24 tablet,extended release 24 hr atorvastatin 20 mg tablet 20 mg PO DAILY 05/18/24 06/23/24 clobetasol 0.05 % topical ointment 1 applic topical BID PRN 05/18/24 06/23/24 multivitamin 1 tab PO QAM 06/23/24 06/23/24 Previous Rx's ?Medication ?Instructions ?Recorded albuterol sulfate 2.5 mg/3 mL 2.5 mg (3 mL) NEB Q6H #20 ea 06/27/24 (0.083 %) solution for nebulization apixaban 5 mg tablet (Eliquis) 5 mg PO BID #60 tabs 06/27/24 guaifenesin 600 mg tablet, 1,200 mg (2 x 600 mg) PO BID #10 06/27/24 extended release 12 hr (Mucinex) tabs ipratropium 0.5 mg-albuterol 3 mg 3 ml inhalation Q6H #20 ea 06/27/24 (2.5 mg base)/3 mL nebulization soln oseltamivir 75 mg capsule 75 mg PO Q12H 1 day #2 caps 06/27/24 prednisone 20 mg tablet 20 mg PO DAILYWM #2 tabs 06/27/24 Allergies Allergy/AdvReac Type Severity Reaction Status Date / Time Sulfa (Sulfonamide Allergy Severe Hives Verified 08/22/24 11:35 Antibiotics) hydromorphone (From Dilaudid) Allergy Intermediate Vomiting Verified 08/22/24 11:35 Cephalosporins Allergy Mild Verified 08/22/24 11:35 Review of Systems Status of ROS: Reports: 10 or more systems reviewed and unremarkable except as noted in History and below [facility] Medical History Osteoarthritis of left shoulder ?M19.012 - Primary osteoarthritis, left shoulder (ICD-10) Osteoarthritis of right shoulder ?M19.011 - Primary osteoarthritis, right shoulder (ICD-10) Osteopenia ?M85.80 - Other specified disorders of bone density and structure, unspecified site (ICD-10) Spontaneous pneumothorax ?J93.83 - Other pneumothorax (ICD-10) Palpitations ?R00.2 - Palpitations (ICD-10) Lichen sclerosus et atrophicus ?L90.0 - Lichen sclerosus et atrophicus (ICD-10) Angiodysplasia of colon ?K55.20 - Angiodysplasia of colon without hemorrhage (ICD-10) Depressive disorder ?F32.A - Depression, unspecified (ICD-10) Tobacco use disorder ?F17.200 - Nicotine dependence, unspecified, uncomplicated (ICD-10) Osteoporosis ?M81.0 - Age-related osteoporosis without current pathological fracture (ICD- 10) COPD (chronic obstructive pulmonary disease) ?J44.9 - Chronic obstructive pulmonary disease, unspecified (ICD-10) Multiple thyroid nodules ?E04.2 - Nontoxic multinodular goiter (ICD-10) Lumbar facet arthropathy ?M47.816 - Spondylosis without myelopathy or radiculopathy, lumbar region (ICD-10) Lumbosacral radiculopathy at S1 ?M54.17 - Radiculopathy, lumbosacral region (ICD-10) Pulmonary collapse ?J98.19 - Other pulmonary collapse (ICD-10) Surgical History History of arthroplasty of right knee (08/13/23) ?Z96.651 - Presence of right artificial knee joint (ICD-10) History of appendectomy ?Z90.49 - Acquired absence of other specified parts of digestive tract (ICD- 10) S/P right knee arthroscopy ?Z98.890 - Other specified postprocedural states (ICD-10) H/O spinal fusion ?Z98.1 - Arthrodesis status (ICD-10) H/O: hysterectomy ?Z90.710 - Acquired absence of both cervix and uterus (ICD-10) History of lung surgery ?Z98.890 - Other specified postprocedural states (ICD-10) Family History Mother Alcohol dependence Father Alcohol dependence Hodgkins disease Brother High blood pressure Social History Narrative: She lives with her in [facility] in a mobile home. She has about 4 steps to get in and then lives on 1 level. She does have space for her to use a walker. Her is visiting and is in a wheelchair himself. She works at [employer]. She smokes at least a pack of cigarettes a day. She does not drink alcohol. No recreational drug use. What is your current living situation?: I presently have a place to live Problems where you live: no known problems Problems where you live details: none In the past 12 months, utilities in danger of being shut off: no In past 12 months, lack of transportation kept you from medical appts, meetings, work, or getting things needed for daily living: no In the past 12 mos, have been you worried that your food would run out before you had money to buy more?: never true In the past 12 mos, the food you bought just didn't last and you didn't have money to buy more?: never true Highest level of school completed/degree received: high school graduate Smoking Status: Current every day smoker What tobacco products do you use: cigarettes Smoking packs per day: 1 Smoking cigarettes per day: 20.0 Years smoked: 51 Smoking pack-years: 51.00 Do you use any of these nicotine containing products: None Second hand tobacco smoke exposure: Yes How often do you have a drink containing alcohol: never How often do you have six or more drinks on one occasion: Never AUDIT-C Alcohol total score: 0 Non-prescribed substance use: denies use Caffeine: Yes (coffee) How often does anyone, including family, friends and others, physically hurt you : never How often does anyone, including family, friends and others, insult or talk down to you: never How often does anyone, including family, friends and others, threaten you with harm: never How often does anyone, including family, friends and others, scream or curse at you: never Are you using contraception or practicing any form of control: No service: No Exam Narrative: Exam Narrative: Well-nourished well-developed patient, appears quite uncomfortable. Alert and oriented. Answers questions appropriately. Mood and affect are appropriate. Thoughts are goal oriented and rational. No tangential or magical thinking noted. Patient speaks in full sentences without needing to catch her breath. HEENT: Normocephalic atraumatic. Pupils are equally round reactive to light. Extraocular muscles are intact. Conjunctivae are moist without any icterus noted. Moist mucous membranes. Neck is soft. Cardiovascular: Heart is regular rate and rhythm S1 and S2 are present without any murmurs. Lungs: Clear to auscultation bilaterally no wheezes rhonchi or rales are appreciated. Abdomen: Soft and nontender nondistended with normal bowel sounds. Delete the Extremities: Bilateral lower extremities are without edema. Skin: Well perfused without any obvious rashes. Const: Vital Signs, click to edit/add: Vital Signs - 24 hr 08/22/24 11:36 Temperature 97.9 F Pulse Rate [Pulse Oximeter] 105 H Respiratory Rate 24 Blood Pressure [Le ft Upper Arm] 183/110 H Pulse Oximetry 96 Oxygen Delivery Me thod Room Air Course Course ED Course: EKG, read by me, shows normal sinus rhythm with ST elevation in leads 2, 3, AVF. This is consistent with acute ST-elevation DE. At this time IV is established and patient is given oral aspirin and ticagrelor. Heparin is initiated. She was also given oral nitroglycerin which did not do much for her pain and did not significantly affect her blood pressure. Because of this a nitro drip was started. Did consult with Dr. Albert, cardiology at [facility] who recommended transfer at this time. Likely, ambulance was right outside hospital at this time so patient will go by ground. Point of care troponin came back elevated at 1.07. Vital Signs Vital signs: Initial Vital Signs Temperature 97.9 F 08/22/24 11:36 Temperature Source Temporal Artery Scan 08/22/24 11:36 Pulse Rate 105 H 08/22/24 11:36 Pulse Rhythm Regular 08/22/24 11:36 Respiratory Rate 24 08/22/24 11:36 Blood Pressure 183/110 H 08/22/24 11:36 Blood Pressure Mean 134 H 08/22/24 11:36 Blood Pressure Position Semi-Fowlers 08/22/24 11:36 Pulse Oximetry 96 08/22/24 11:36 Oxygen Delivery Method Room Air 08/22/24 11:36 Vital Signs Temperature 97.9 F 08/22/24 11:36 Pulse Rate 105 H 08/22/24 11:36 Respiratory Rate 24 08/22/24 11:36 Blood Pressure 183/110 H 08/22/24 11:36 Pulse Oximetry 96 08/22/24 11:36 Oxygen Delivery Method Room Air 08/22/24 11:36 Temperature 97.9 F 08/22/24 11:36 Pulse Rate 105 H 08/22/24 11:36 Respiratory Rate 24 08/22/24 11:36 Blood Pressure 183/110 H 08/22/24 11:36 Pulse Oximetry 96 08/22/24 11:36 Oxygen Delivery Method Room Air 08/22/24 11:36 Medications Administered Medications: Generic Name Dose Route Start Last Admin Trade Name Freq PRN Reason Stop Dose Admin Heparin Sodium/Dextrose 25,000 unit in 500 mls @ 0 mls/hr 08/22/24 11:45 08/22/24 11:58 Heparin IV 800 unit/hr .Q0M NIRU 16 mls/hr Administration Protocol Per Protocol Nitroglycerin 0.4 mg 08/22/24 11:43 08/22/24 11:50 Nitroglycerin 0.4 Mg Tab.Subl SUBLINGUAL 0.4 mg Q5M PRN Administration Discontinued Medications Generic Name Dose Route Start Last Admin Trade Name Freq PRN Reason Stop Dose Admin Aspirin 324 mg 08/22/24 11:43 08/22/24 11:49 Aspirin 81 Mg Tab.Chew PO 08/22/24 11:44 324 mg ONCE ONE Administration Heparin Sodium (Porcine) 4,000 unit 08/22/24 11:45 08/22/24 11:57 Heparin 5,000 Unit/0.5 Ml Inj IVP 08/22/24 11:46 4,000 unit ONCE ONE Administration Ticagrelor 180 mg 08/22/24 11:50 08/22/24 12:00 Ticagrelor 90 Mg Tablet PO 08/22/24 11:51 180 mg ONCE ONE Administration Medical Decision Making MDM Narrative Medical decision making narrative: 68-year-old female with ST-elevation DE. Will be transferred to [facility]. Lab Data Lab results reviewed: Yes I reviewed the patient's lab results Labs: Lab Results 08/22/24 08/22/24 Range/Units 11:44 11:46 WBC 10.16 (4.50-11.00) K/uL RBC 4.47 (4.00-5.20) m/uL Hgb 13.4 (12.0-16.0) gm/dL Hct 41.2 (33.0-51.0) % MCV 92 (80-100) fL MCH 30 (26-34) pg MCHC 33 (32-36) gm/dL RDW Coeff of Reynaldo 14.7 (11.5-15.5) % Plt Count 394 (140-440) K/uL Neut % (Auto) 76.7 H (42.0-72.0) % Lymph % (Auto) 15.9 L (20-44) % [place] % (Auto) 6.2 (0.0-11.0) % Eos % (Auto) 0.6 (0.0-7.0) % Baso % (Auto) 0.4 (0.0-3.0) % Neut # (Auto) 7.80 H (1.7-7.0) K/uL Lymph # (Auto) 1.60 (0.90-2.90) K/uL [place] # (Auto) 0.60 (0.00-0.90) K/UL Eos # (Auto) 0.06 (0.00-0.50) K/uL Baso # (Auto) 0.04 (0.00-0.30) K/uL Abs Immat Gran (auto) 0.02 (0.00-0.30) K/uL Imm/Tot Granulo (auto) 0.2 % Lactate 1.3 (0.5-1.9) mmol/L POC Troponin I 1.07 H (0.01-0.04) ng/ml ECG Data Attestation: I personally reviewed and interpreted this ECG as follows: Critical Care Time Critical Care Time Critical Care Time: Yes Attestation: The patient required my highest level preparedness to intervene emergently and I personally spent this critical care time directly and personally managing the patient. This critical care time included: Obtaining a history; Examining the patient; Pulse oximetry; Ordering and reviewing of studies; Arranging urgent treatment with development of a management plan; Evaluation of patients response to treatment; Frequent reassessment discussions with other providers. This critical care time was performed to assess and manage the high probability of imminent life-threatening deterioration that could result in multiorgan failure. It was exclusive of separate billable procedures and treating other patients and teaching time. Total Critical Care Time in Minutes: 30 Discharge Plan Discharge Clinical Impression: ST elevation myocardial infarction (STEMI) Patient Disposition: [facility] Condition: Critical Prescriptions: No Action multivitamin Tablet 1 tab PO QAM metoprolol succinate 100 mg tablet extended release 24 hr 100 mg PO DAILY atorvastatin 20 mg tablet 20 mg PO DAILY clobetasol 0.05 % ointment 1 applic topical BID PRN ipratropium-albuterol 0.5 mg-3 mg(2.5 mg base)/3 mL Solution For Nebulization 3 ml inhalation Q6H Qty: 20 0RF albuterol sulfate 2.5 mg /3 mL (0.083 %) Solution For Nebulization 2.5 mg NEB Q6H Qty: 20 0RF oseltamivir 75 mg Capsule 75 mg PO Q12H 1 Days Qty: 2 0RF Eliquis 5 mg Tablet 5 mg PO BID Qty: 60 0RF guaifenesin [Mucinex] 600 mg Tablet Extended Release 12hr 1,200 mg PO BID Qty: 10 0RF prednisone 20 mg Tablet 20 mg PO DAILYWM Qty: 2 0RF Stand Alone Forms: MyHealth Info Instructions
[2024-08-22] MEDS: HEPARIN 5,000 UNIT/0.5 ML INJ 4000 UNIT IVP (11:57)
[2024-08-22 11:58] LABS: Basophils Absolute Auto 0.04 K/uL (0.00-0.30); Basophils Percent Auto 0.4 % (0.0-3.0); Eosinophils Absolute Auto 0.06 K/uL (0.00-0.50); Eosinophils Percent Auto 0.6 % (0.0-7.0); Hematocrit 41.2 % (33.0-51.0); Hemoglobin* 13.4 gm/dL (12.0-16.0); Immature Granulocytes Abs Auto 0.02 K/uL (0.00-0.30); Immature Granulocytes Pct Auto 0.2 %; Lymphocytes Percent Auto 15.9 % (20-44); Mean Corpuscular HGB Conc 33 gm/dL (32-36); Mean Corpuscular Hemoglobin 30 pg (26-34); Mean Corpuscular Volume 92 fL (80-100); Monocytes Percent Auto 6.2 % (0.0-11.0); Neutrophils Percent Auto 76.7 % (42.0-72.0); Platelet Count* 394 K/uL (140-440); RDW Coefficient of Variation % 14.7 % (11.5-15.5); Red Blood Count 4.47 m/uL (4.00-5.20); White Blood Count* 10.16 K/uL (4.50-11.00)
[2024-08-22] MEDS: HEPARIN 25,000 UNIT/500 ML BAG 16 UNIT IV (11:58)
[2024-08-22] MEDS: TICAGRELOR 90 MG TABLET 180 MG PO (12:00)
[2024-08-22 12:01] LABS: Troponin, Point-of-Care* 1.07 ng/ml (0.01-0.04)
[2024-08-22 12:04] LABS: Slide Review Reflex No
[2024-08-22] MEDS: NITROGLYCERIN/DEXTROSE 25,000 MCG/250 ML BOTTLE 3 MCG IVPB (12:08)
[2024-08-22 12:09] LABS: Albumin* 4.8 g/dL (3.3-5.0); Chloride* 97 mmol/L (96-114)
[2024-08-22 12:10] LABS: Potassium* 4.1 mmol/L (3.6-5.1); Sodium* 131 mmol/L (135-149)
[2024-08-22 12:12] LABS: Alanine Aminotransferase* 28 U/L (4-35); Alkaline Phosphatase* 104 U/L (40-150); Anion Gap 10 mEq/L (7-15); Aspartate Amino Transferase* 46 U/L (12-35); Bilirubin Direct* 0.3 mg/dL (0.0-0.5); Bilirubin Total* 0.6 mg/dL (0.1-1.5); Blood Urea Nitrogen* 13 mg/dL (7-30); Calcium* 9.9 mg/dL (8.4-10.6); Carbon Dioxide* 24 mmol/L (20-32); Creatinine* 0.5 mg/dL (0.5-1.5); Est. Creatinine Clearance* 55.07; Estimated Glomerular Filt Rate 103 ml/min; Glucose* 121 mg/dL (60-115); Total Protein* 8.2 g/dL (6.0-8.3)
[2024-08-22 12:13] LABS: Magnesium* 1.7 mg/dL (1.5-2.6)
[2024-08-22 12:14] LABS: INR 0.85 (0.91-1.10); Partial Thromboplastin Time* 26 Seconds (23-33); Prothrombin Time 12.4 Seconds
[2024-08-22 12:33] LABS: NT Pro B Type NatriureticPept* 2120 pg/mL; Troponin I* 0.95 ng/mL (0.01-0.04)
== END 2024-08-22 12:21 | disposition short-term general hospital (02) ==
PROVIDERS: Emergency Provider Family Medicine; PCP Family Medicine
DX: I21.3 ST elevation (STEMI) myocardial infarction of unspecified site (principal)
CPT/HCPCS: 36415; 80048; 80076; 83605; 83735; 83880; 84484; 85025; 85610; 85730; 93005; 94761; 99285; 99291; A9270; J1644

== ENCOUNTER 2024-08-22 12:03 | Outpatient (CLI) | payer MEDICARE, BC, SELFPAY | END 2024-08-22 12:04 | disposition home or self-care (01) | LOC: AMB 08-23 14:55 | PROVIDERS: PCP Family Medicine; Visit Provider Internal Medicine | DX: I21.3 ST elevation (STEMI) myocardial infarction of unspecified site (principal) | CPT/HCPCS: A0425; A0434 ==

== ENCOUNTER 2025-03-10 08:48 | Emergency (ER) | payer MEDICARE, BC, SELFPAY ==
--- OUTSIDE RECORDS SUMMARY | 2025-03-10 08:50 | XMS_ITS | Clinical Summary ---
Author Organization [facility] Address [address] [place] [id number] Care Team Providers Care Road Advisor Name Role Phone Melania Bishop Primary Care Provider [phone] Allergies Active Allergy Reactions Criticality Noted Date Comments Cefaclor Hives,Edema High 01/31/2005 Other reaction(s): Hives (High) Hydromorphone Nausea And Vomiting Low 12/25/2016 Sulfadimethoxine Hives High 03/01/2015 Other reaction(s): Hives (High) Medications MULTIVITAMIN TAB take 1 tablet by oral route once daily with food 0 8 Active albuterol 0.083% (2.5 mg/3 mL) neb solution Inhale 2.5 mg via a nebulizer every 6 hours if needed. 5 Active albuterol-ipratr opium (DUONEB) (2.5-0.5 mg) in 3 mL NEBULIZATION solution Inhale 1 Neb via a nebulizer every 6 hours if needed. 5 Active aspirin chewable 81 mg chewable tabletIndication s:ST elevation myocardial infarction involving right coronary artery (HC) Chew 1 Tablet (81 mg) by mouth once daily with a meal. 90 Tablet 3 08/23/2024 6:09 PM CDT 5 Active clopidogreL 75 mg tabletIndication s:ST elevation myocardial infarction involving right coronary artery (HC) Take 1 Tablet (75 mg) by mouth once daily in the morning. 90 Tablet 3 08/23/2024 6:09 PM CDT 5 Active nitroglycerin 0.4 mg sublingual tabletIndication s:ST elevation myocardial infarction involving right coronary artery (HC) Place 1 Tablet (0.4 mg) under the tongue every 5 minutes if needed for Chest Pain. Up to 3 tablets in 15 minutes. 25 Tablet 2 08/23/2024 6:09 PM CDT 5 Active cetirizine 10 mg tablet Take 10 mg by mouth once daily. Active lisinopriL 2.5 mg tabletIndication s:ST elevation myocardial infarction involving right coronary artery (HC) Take 1 Tablet (2.5 mg) by mouth once daily. 90 Tablet 3 5 Active atorvastatin 40 mg tabletIndication s:ST elevation myocardial infarction involving right coronary artery (HC) Take 1 Tablet (40 mg) by mouth at bedtime. 90 Tablet 3 5 Active calcium carbonate/vitami n D2 (CALCIUM 600 + D ORAL) Take by mouth. Active metoprolol succinate (TOPROL XL) 100 mg Sustained-Releas e tabletIndication s:ST elevation myocardial infarction involving right coronary artery (HC),Coronary artery disease, unspecified vessel or lesion type, unspecified whether angina present, unspecified whether [place] or transplanted heart,Palpitatio ns Take 1 Tablet (100 mg) by mouth once daily. 90 Tablet 3 5 Active oxyCODONE (ROXICODONE) 5 mg immediate release tabletIndication s:Bilateral shoulder region arthritis Take 1 Tablet (5 mg) by mouth 2 times daily if needed for Pain. 40 Tablet 5 Active umeclidinium (Incruse Ellipta) 62.5 mcg/actuation inhalerIndicatio ns:Centrilobular emphysema (HC) Inhale 1 Puff by mouth once daily. Discard inhaler 6 weeks after opening or when the counter reads '0' (after all blisters have been used), whichever comes first. 90 Each 1 5 Active umeclidinium (Incruse Ellipta) 62.5 mcg/actuation inhalerIndicatio ns:Centrilobular emphysema (HC) Inhale 1 Puff by mouth once daily. Discard inhaler 6 weeks after opening or when the counter reads '0' (after all blisters have been used), whichever comes first. 90 Each 5 02/29/20 25 Discontin ued(Reord er (E-cancel not sent)) oxyCODONE (ROXICODONE) 5 mg immediate release tabletIndication s:Bilateral shoulder region arthritis Take 1 Tablet (5 mg) by mouth 2 times daily if needed for Pain. 40 Tablet 5 02/17/20 25 Discontin ued(Reord er (E-cancel not sent)) Active Problems Problem Noted Date Diagnosed Date Bilateral shoulder region arthritis 11/01/2024 Overview (11/25/2024): May 2024: Dr. Alfredo Kenney did bilateral GH Joint Shoulder cortisone injections. November 2024: Ultrasound guided cortisone injections to Glenohumeral right and left Shoulder joints ASHD (arteriosclerotic heart disease) 08/23/2024 ST elevation myocardial infa rction involving right coronary artery 08/22/2024 Overview (08/23/2024): s/p SEAMUS x2 dRCA 08/22/24 Centrilobular emphysema 04/14/2024 Overview (04/14/2024): On CT from 2021 and 2023 Osteopenia of multiple sites 02/05/2018 Overview (02/05/2018): DXA 2013 Multiple thyroid nodules 01/19/2015 Overview (01/19/2015): small, [...] elbow 08/31/2011 Overview (08/31/2011): Left elbow. Saw [place] Dr. Espinoza with 3rd injection August 2011. Tobacco use disorder 12/18/2006 Depressive disorder, not elsewhere classified Resolved Problems Problem Noted Date Diagnosed Date Resolved Date First detected episode of atrial fibrillation 06/30/19 25 08/18/2024 Anticoagulation monitoring, INR range 2-3 06/30/2024 08/18/2024 Spontaneous pneumothorax 12/23/2016 Colon polyp 11/07/2011 07/07/2013 Sciatica 02/23/2009 12/16/2013 Encounters Date Type Department Care Team Description 02/28/2025 Refill [facility] [address] [place] [address] Melania Bishop, Refill Request (Incruse Ellipta 62.5mcg oral inh ) 12/28/2024 11:00 AM CDT Office Visit [facility] [address] [place] [address] Bibiana Shipman PA Follow Up (echo- heart attack/jaw pain sometimes) 12/28/2024 Travel 12/23/2024 9:00 AM CDT Procedure Only [facility] [address] [place] [address] Daniel Coronel MD Procedure (ULTRASOUND GUIDED INJECTION lef... 12/23/2024 Travel 12/20/2024 11:00 AM CDT Ancillary Procedure [facility] [address] [place] [address] 12/20/2024 Travel 12/17/2024 1:05 PM CDT - 12/17/2024 11:59 PM CDT Hospital Encounter [facility] [address] [place] [address] 12/17/2024 Travel 12/15/2024 1:16 PM CDT - 12/15/2024 11:59 PM CDT Hospital Encounter [facility] [address] [place] [address] 12/15/2024 Travel 12/13/2024 1:25 PM CDT - 12/13/2024 11:59 PM CDT Hospital En[facility] [address] [facility] [address] 12/13/2024 Travel 12/09/2024 11:15 AM CDT Phone Office Visit [facility] [address] [place] [address] Melania Bishop, Medication Management (OXYCODONE 5mg; taking once daily at night to help with sleep; has not needed many PRN doses during the day, only 3-4 times in the last month) 12/08/2024 1:10 PM CDT - 12/08/2024 11:59 PM CDT Hospital Encounter [facility] [address] [place] [address] 12/08/2024 Travel from Last 3 Months Immunizations Immunization Administration Dates Next Due AMB Influenza, IIV4 PF (=>6 mos Flulaval,Fluzone Fluarix)(Flu Clinic Only) 05/18/2014 COVID-19 VACCINE SPIKEVAX (M ODERNA 50MCG/0.5ML) 12YO+ PFS 04/05/2024,04/02/2023 COVID-19 vaccine (SittercityBio NTech 30mcg/0.3mL) PF, MDV 07/02/2021,11/02/2020,10/09/2020 Influenza A [...] Date Smoking Tobacco: Every Day Cigarettes 1 50.1 Started: 02/10/1975 Smokeless Tobacco: Never Tobacco Cessation:Ready to Q uit: No; Counseling Given: Yes Alcohol Use Standard Drinks/Week Comments No 0 (1 standard drink = 0.6 oz pur e alcohol) PHQ-2 Answer Date Recorded PHQ-2 TOTAL SCORE 0 09/14/2024 Social Connections Answer Date Recorded Do you often feel lonely or isolated from those around you? 0 08/23/2024 Financial Resource Strain Answer Date R ecorded Difficulty of Paying Living Expenses 3 02/16/2024 Difficulty of Paying Living Expenses Not on file 02/16/2024 Food Insecurity Answer Date Recorded Do you worry your food will run out before you are able to buy more? 1 08/23/2024 Transportation Needs Answer Date Record ed Does lack of transportation keep you from medica l appointments? 1 08/23/2024 Does lack of transportation keep you from work, meetings or getting things that you need? 1 08/23/2024 Housing Stability Answer Date Recorded What is your housing situation today? 1 08/23/2024 Interpersonal Safety Answer Date Record ed Are you being hit, kicked, p ushed or yelled at (see row info)? No 08/23/2024 Interpersonal Safety Abuse 12 - 18 Not on file 08/23/2024 Interpersonal Safety Ambulatory Vulnerability No t on file 08/23/2024 Utilities Answer Date Recorded Do you have trouble paying f or utilities (for example, heat, electricity, water, phone)? 1 08/23/2024 Comments No Sex and Gender Information Value Date Recorded Sex Assigned at Not on file Legal Sex Female 5:41 AM RAIL LAYER Gender Identity Not on file Sexual Orientation [...] Sign Reading Time Taken Comments Blood Pressure 119/70 12/28/2024 10:56 AM CDT Pulse 87 12/28/2024 10:56 AM CDT Temperature 36.6 C (97.8 F) 12/23/2024 9:08 AM CDT Respiratory Rate 16 08/24/2024 7:46 AM CDT Oxygen Saturation 98% 12/28/2024 10:56 AM CDT Inhaled Oxygen Concentration - - Weight 66 kg (145 lb 9.6 oz) 12/28/2024 10:56 AM CDT Height 172.7 cm (5' 8) 08/23/2024 6:00 AM CDT Body Mass Index 22.14 08/23/2024 6:00 AM CDT Plan of Treatment Upcoming Encounters Date Type Department Care Team (Late st Contact Info) Description 03/14/2025 2:00 PM CDT Office Visit [facility] [address] [place] [address] Melania Bishop DO [address] [place] [address] Health Maintenance Due Date Last Done Comments Zoster (shingles) series for age 50+ (1 of 2) 2006 RSV vaccine for adults or (1 - Risk 60-74 years 1-dose series) 2016 COVID-19 vaccine series ( season) 2025 04/05/2024, 04/02/2023, 03/08/2022, Additional history exists Influenza Vaccine (#1) 2025 , 04/02/2023, 03/11/2016, Additional history exists BMI (ht and wt on same day) for age 18+ 04/05/2025 04/05/2024, 02/16/2024, 07/30/2023, Additional history exists Medicare Wellness for age 65+ 04/06/2025 04/05/2024 Mammogram for age 45-75 04/07/2025 04/07/20 24, 02/18/2022, 02/15/2021, Additional history exists Low Dose CT (for lung CA) age 50-80 04/12/2025 04/12/2024, 02/25/2022, 02/19/2021, Additional history exists Depression screening for age 12+ 09/15/2025 09/15/2024, 09/14/2024, 04/05/2024, Additional history exists Colonoscopy through age 75 02/28/202602/28, 02/28/2021, 02/28/2021, Additional history exists Lipids for age 45-75 08/23/2029 08/23/2024, 04/05/2024, 02/14/2022, Additional history exists Tetanus booster 04/02/2033 04/02/2023, 11/08, 04/20/2003 Hepatitis C screening for age 18-79 Completed 02/11/2019 Pneumococcal series for age 50+ Completed 04/05/2024, 02/07/2021 DEXA/DXA scan for age 65+ Completed 2023, 12/22/2012, 09/03/2001 Hepatitis B series for 19+ Aged Out N o longer eligible based on patient's age to complete this topic Medical Devices Implanted Type Area Unit Support Representative Device Identifier Shelf Expiration Date Model / Serial / Lot Kit Cleo Marcial - [id number] Implanted:Qty: 1 on 02/01/2005 at [employer] N/A: Spine [employer] [id number] / [id number] / [id number] Bone Canclls 15ml Chips [facility] [[id number]] [[id number]][ Implanted:Qty: 1 on 02/01/2005 at [employer] Explanted:at [employer] (Quantity not on file) Lumbar Vertebrae [employer] 02/03/2009 [id number] / [id number] / [id number] Description:cancellous chips 15cc ID# [id number] Avs Tl Spacer Deg Spacer [id number] Implanted:Qty: 1 on 02/01/2005 at [employer] N/A: Spine [id number] / / Description:kimo spine av s tl spacer implant #[id number] deg spacer [id number] - [id number] Implanted:Qty: 4 on 02/01/2005 at [employer] Lumbar Vertebrae [employer] [id number] / / [id number] - [id number] Implanted:Qty: 2 on 02/01/2005 at [employer] N/A: Lumbar Vertebrae [id number] / / Description:pRE-BENT RAD LISA [id number] - [id number] Implanted:Qty: 4 on 02/01/2005 at [employer] N/A: Lumbar Vertebrae [employer] [id number] / / Description:TYRA BLOCKERS Procedures Procedure Name Priority Date/Time Associated Diagnosis Comments BEDSIDE US STUDY ARCHIVE Routine 12/23/2024 4:14 PM CDT Arthritis of left glenohumeral joint ECHO TTE COMPLETE WO CONTRAST Routine 12/20/2024 11:[address] elevation myocardial infarction involving right coronary artery (HC) Coronary artery disease, unspecified vessel or lesion type, unspecified whether angina present, unspecified whether [place] or transplanted heart SCAN-CARDIAC REHABILITATION 12/17/2024 1:31 PM CDT SCAN-CARDIAC REHABILITATION 12/15/2024 1:25 PM CDT SCAN-CARDIAC REHABILITATION 12/13/2024 1:19 PM CDT SCAN-CARDIAC REHABILITATION 12/08/2024 1:22 PM CDT LIPID PANEL Early AM 08/23/2024 6:42 AM CDT XR DXA BONE DENSITY 2 SITES AXIAL Routine 04/12/2024 1:26 PM RAIL LAYER Menopause CT CHEST SCREENING LOW DOSE WO CONTRAST Routine 04/12/2024 1:09 PM RAIL LAYER Tobacco use disorder Personal history of nicotine dependence XR MAMMO BILAT SCREENING Routine 04/07/2024 11:42 AM CDT Encounter for screening mammogram for malignant neoplasm of breast COLONOSCOPY SCREENING Routine 02/28/2021 8:38 AM CDT Personal history of colonic polyps ANTI HCV Routine 02/11/2019 10:38 AM CDT Encounter for hepatitis C screening test for low risk patient from Last 3 Months or Most Recently Relevant to Health Maintenance Results * BEDSIDE US STUDY ARCHIVE (12/23/2024 4:14 PM CDT) Narrative Alma Bella - 12/23/2024 4:14 PM CDT The patient was seen for ultrasound guided injection by Dr. Daniel Coronel. Ultrasound was not used for diagnostic purposes, but to guide the needle placement and document the position of the injection. See patient's EPIC encounter for the detail of the procedure; see ALVIN for saved images of the injection. us Daniel Coronel MD PROCEDURE ORD Final Resu lt * ECHO TTE COMPLETE WO CONTRAST (12/20/2024 11:17 AM CDT) AORTIC VALVE MEAN PG 5 mmHg EJECTION FRACTION 69 % LVEDD 4.4 cm Anatomical Region Laterality Modality Ultrasound 12/20/2024 10:5 9 AM CDT Narrative 12/20/2024 1:25 PM CDT ECHOCARDIOGRAM SHAYY HOOKER : 1955 69 years Study Date: 12/20/2024 10:59:40 AM Gender: F BP: 119/79 mmHg Height: 173.00 cm BSA: 1.81 m Weight: 68.00 kg Tech: GALLO Referring MD: BIBIANA HAYES CASE Site: [facility] Reading Location: Mobile-OP Patient Location: Outpatient. Procedure: 2D, Color Doppler and Spectral Doppler. Indication for study: ST elevation myocardial infarction involving right coronary artery (HC); Coronary artery disease, unspecified vessel or lesion type, unspecified whether angina present, unspecified whether [place] or transplanted heart Cardiac Rhythm: Regular.Study quality: Good. Final Impressions: 1. Normal left ventricular size, normal wall thickness, normal global systolic function, calculated EF of 69 %. 2. Basal inferior wall hypokinesis. 3. No significant valvular abnormalities. Chamber Sizes and Function Normal left ventricular size, normal wall thickness, normal global systolic function, calculated EF of 69 %. No resting regional wall motion abnormality visualized. Left atrial size is normal. Left atrial pressure is normal. Right ventricular cavity size is normal, global systolic RV function is normal. RV wall thickness is normal. The right atrium is normal. Right atrial volume index is 19 ml/m . Right atrial area is 14 cm . The pulmonary artery is of normal size and origin. The sinus of Valsalva is normal sized. The ascending aorta is normal sized. Valves, RV Pressures and Diastolic Function The aortic valve is normal in structure and trileaflet, no stenosis and no regurgitation. The mitral valve is normal in structure, trace mitral regurgitation. Indeterminate pattern of LV diastolic filling. The tricuspid valve is normal in structure, trace tricuspid regurgitation. The pulmonic valve is normal. No pulmonary regurgitation. Masses, Effusion, Shunts There is no pericardial effusion. The inferior vena cava is normal sized, respiratory size variation greater than 50%. No left to right shunting was detected by limited color flow Doppler interrogation of the interatrial septum. MEASUREMENTS AND CALCULATIONS 2-D Measurements and LV Function: LVID (d) 4.4 cm Planimetered EF 69 % LVID (s) 3.2 cm LV FS% (2D) 28 % IVS (d) 0.6 cm LVOT diameter 2.1 cm LVPW (d) 0.8 cm HR 79 bpm Ao Sinus 3.1 cm LA Vol index 23 ml/m2 Ao Sinus ULN 3.7 cm RA Vol index 19 ml/m2 Asc Ao 2.7 cm RA area 14 cm Asc Ao ULN 3.9 cm RV Basal Diam 2.9 cm LA 2.9 cm Diastology: Mitral Tissue Doppler E Peak 0.6 m/s e', Septum 0.05 m/s A Peak 0.9 m/s e', Lateral 0.08 m/s E/A 0.7 E/e' Average 8.80 DT 130 msec Aortic Valve: Vmax 1.3 m/s WADE (V) 3.33 cm VTI 0.28 m WADE (I) 3.20 cm LVOT V max 1.3 m/s Max PG 7 mmHg LVOT VTI 0.27 m Mean PG 5 mmHg SV 90 ml Dim Index 0.96 SV index 50 ml/m CO 7.1 l/min CI 3.9 l/min/m Mitral Valve: MVA 5.8 cm MV P 1/2 38 msec Tricuspid Valve and estimated PA pressures: TAPSE 2.1 cm . This study was interpreted by an [facility] accredited facility. Final Procedure Note Marisabel Albert MD - 12/20/2024 ECHOCARDIOGRAM SHAYY HOOKER : 1955 69 years Study Date: 12/20/2024 10:59:40 AM Gender: F BP: 119/79 mmHg Height: 173.00 cm BSA: 1.81 m Weight: 68.00 kg Tech: GALLO Referring MD: BIBIANA HAYES CASE Site: [facility] Reading Location: Mobile-OP Patient Location: Outpatient. Procedure: 2D, Color Doppler and Spectral Doppler. Indication for study: ST elevation myocardial infarction involving rightcoronary artery (HC); Coronary artery disease, unspecified vessel orlesion type, unspecified whether angina present, unspecified whethernative or transplanted heart Cardiac Rhythm: Regular.Study quality: Good. Final Impressions: 1. Normal left ventricular size, normal wall thickness, normal globalsystolic function, calculated EF of 69 %. 2. Basal inferior wall hypokinesis. 3. No significant valvular abnormalities. Chamber Sizes and Function Normal left ventricular size, normal wall thickness, normal globalsystolic function, calculated EF of 69 %. No resting regional wall motionabnormality visualized. Left atrial size is normal. Left atrial pressureis normal. Right ventricular cavity size is normal, global systolic RVfunction is normal. RV wall thickness is normal. The right atrium isnormal. Right atrial volume index is 19 ml/m . Right atrial area is 14cm . The pulmonary artery is of normal size and origin. The sinus ofValsalva is normal sized. The ascending aorta is normal sized. Valves, RV Pressures and Diastolic Function The aortic valve is normal in structure and trileaflet, no stenosis and noregurgitation. The mitral valve is normal in structure, trace mitralregurgitation. Indeterminate pattern of LV diastolic filling. Thetricuspid valve is normal in structure, trace tricuspid regurgitation. Thepulmonic valve is normal. No pulmonary regurgitation. Masses, Effusion, Shunts There is no pericardial effusion. The inferior vena cava is normal sized,respiratory size variation greater than 50%. No left to right shunting wasdetected by limited color flow Doppler interrogation of the interatrialseptum. MEASUREMENTS AND CALCULATIONS 2-D Measurements and LV Function: LVID (d) 4.4 cm Planimetered EF 69 % LVID (s) 3.2 cm LV FS% (2D) 28 % IVS (d) 0.6 cm LVOT diameter 2.1 cm LVPW (d) 0.8 cm HR 79 bpm Ao Sinus 3.1 cm LA Vol index 23 ml/m2 Ao Sinus ULN 3.7 cm RA Vol index 19 ml/m2 Asc Ao 2.7 cm RA area 14 cm Asc Ao ULN 3.9 cm RV Basal Diam 2.9 cm LA 2.9 cm Diastology: Mitral Tissue Doppler E Peak 0.6 m/s e', Septum 0.05 m/s A Peak 0.9 m/s e', Lateral 0.08 m/s E/A 0.7 E/e' Average 8.80 DT 130 msec Aortic Valve: Vmax 1.3 m/s WADE (V) 3.33 cm VTI 0.28 m WADE (I) 3.20 cm LVOT V max 1.3 m/s Max PG 7 mmHg LVOT VTI 0.27 m Mean PG 5 mmHg SV 90 ml Dim Index 0.96 SV index 50 ml/m CO 7.1 l/min CI 3.9 l/min/m Mitral Valve: MVA 5.8 cm MV P 1/2 38 msec Tricuspid Valve and estimated PA pressures: TAPSE 2.1 cm . This study was interpreted by an [facility] accredited facility. Final us Bibiana Hayes Umberto ZIMMER ECHO ORD Final Res ult * SCAN-CARDIAC REHABILITATION (12/17/2024 1:31 PM CDT) Only the most recent of4 resultswithin the time period is included. us Scanner OTHER Final Result * Lipid Panel (08/23/2024 6:42 AM CDT) [facility] CHOLESTEROL,TOTAL 126 100 - 199 mg/dL 08/23/2024 7:44 AM CDT [facility] Comment: Cholesterol, Total Reference Ranges Desirable <200 mg/dL Borderline 200-239 mg/dL High >=240 mg/dL TRIGLYCERIDES 114 <150 mg/dL 08/23/2024 7:44 AM CDT [facility] HDL CHOLESTEROL 53 >40 mg/dL 7:44 AM CDT [facility] NON-HDL CHOLESTEROL 73 <145 mg/dl 08/23/2024 7:44 AM CDT [facility] [employer] [facility] CHOL/HDL RATIO 2.38 <4.50 08/23/2024 7:44 AM CDT [facility] LDL CHOLESTEROL 50 <=130 mg/dL 08/23/2024 7:44 AM CDT [facility] [employer] [facility] VLDL CHOLESTEROL 23 <=30 mg/dL 08/23/2024 7:44 AM CDT [facility] [employer] [facility] PROVIDER ORDERED STATUS RANDOM 08/23/2024 7:44 AM CDT [facility] [employer] [facility] Blood BLOOD SPECIMEN / Unknown Venipuncture / Unknown 08/23/2024 6:42 AM CDT 08/23/2024 7:18 AM CDT Colby Cifuentes MD CHEMISTRY Final Result [facility] [address] [place] [address], * (ABNORMAL) XR DXA BONE DENSITY 2 SITES AXIAL [[id number]] (04/12/2024 1:26 PM RAIL LAYER) Anatomical Region Laterality Modality Spine, HIPS, HIPL, HIPR Other Impressions 04/13/2024 2:13 PM RAIL LAYER Osteoporosis. RECOMMENDATIONS: The National Osteoporosis Foundation recommends [...] to assess therapeutic efficacy. Maryam Ziegler PA-C [facility] 04/13/2024 Narrative 04/13/2024 2:13 PM RAIL LAYER For Patients: Results are automatically released to your [facility] ([facility]) account once available, in compliance with federal regulations. This means that you may see your results before your provider has had a chance to review them. Please allow 2-3 business days for your provider to comment on the results. XR DXA Bone Mineral Density (BMD) EXAM LOCATION: [address] [address] PATIENT NAME: Shayy Hooker DATE OF : [...] two scanners are made by the same fork truck operator. PROCEDURE: Dual-energy x-ray absorptiometry performed with routine [...] LOW DOSE WO CONTRAST (04/12/2024 1:09 PM RAIL LAYER) Anatomical Region Laterality Modality Computed Tomogra phy Impressions 04/14/2024 9:15 AM RAIL LAYER 1. Stable small left upper lobe pulmonary [...] PM /sp Neuroradiologist Narrative 04/14/2024 9:15 AM RAIL LAYER For Patients: As a result of the Cures Act, medical imaging exams and procedure [...] For Patients: As a result of the Cures Act, medical imaging exams and procedure reports are released immediately into your electronic medical record. You may view this report before your referring provider. If you have questions, please contact your health care provider. XR MAMMO BILAT SCREENING [[id number]] CLINICAL HISTORY: This is an asymptomatic 68 y.o. patient. INDICATION FOR EXAM: Mammogram Screening. TECHNIQUE: CC & MLO views were obtained. This study was evaluated with the assistance of Computer-Aided Detection. COMPARISON FILM: Yes 02/18/22 [facility] 02/15/21 [facility] FINDINGS: There are scattered areas of fibroglandular density. There are no dominant masses, suspicious micro calcifications or areas of architectural distortion. us Melania Dangeloxler DO MAMMO Final Resu lt * COLONOSCOPY (02/28/2021 8:30 AM CDT) 02/28/2021 [...] adequate candidate for conscious sedation. The [id number] was passed through the anus and advanced [...] 8:30 AM Procedure Code(s): --- Professional --- 30122, Colonoscopy, flexible; diagnostic, including collection of specimen(s) bybrushing or washing, when performed (separateprocedure) Diagnosis Code(s): --- Professional --- Z86.010, Personal history of colonicpolyps Q43.8, Other specified congenitalmalformations of intestine CPT copyright 2020 [employer]. All rights reserved. The codes documented in this report are preliminary and upon tangible personal property appraiser reviewmay be revised to meet current compliance requirements. Scope In: 9:08:30 AM Scope Withdrawal Time 0 hours 7 minutes 7 seconds Scope Out: 9:27:50 AM us Bill Parnell MD PROCEDURE ORD Final Res ult * ANTI HCV [[id number]] (02/11/2019 10:38 AM CDT) HEPATITIS C ANTIBODY Non-React monae Non-React monae 02/11/2019 8:40 PM CDT [facility] Comment:Antibodies to HCV no t detected; does not exclude the possibility of exposure to HCV. Blood BLOOD SPECIMEN / Unknown Venipuncture / Unknown 02/11/2019 10:38 AM CDT 02/11/2019 10:46 AM CDT us Anahi Frazier MD SEND OUTS Final Resul t [facility] [address] [place] [address], from Last 3 Months or Most Recently Relevant to Health Maintenance Insurance [place] ONLY MEDICARE PART A HB ONLY [place] ONLY MEDICARE PART B HB ONLY Advance Directives * Full Code (Latest Code Status on File) Date Activated Date Inactivated Comments 08/22/2024 2:13 PM 08/24/2024 1:24 PM Question Answer Comments Code Status Discussion: Reviewed Preferences * Full Code Date Activated Date Inactivated Comments 08/22/2024 2:13 PM 08/22/2024 2:13 PM Question Answer Comments Code Status Discussion: Reviewed Preferences * Full Code Date Activated Date Inactivated Comments 12/26/2016 2:51 PM 12/30/2016 6:44 PM * Full Code Date Activated Date Inactivated Comments 12/26/2016 2:39 AM 12/26/2016 2:09 PM * Full Code Date Activated Date Inactivated Comments 12/23/2016 8:19 PM 12/26/2016 2:[address] Advisor Relationship Specialty Start Date End Date Melania [place] [address] [address] PCP - General Family Practice 04/02/23
[2025-03-10 08:51] VITALS: BP 137/88; PULSE 86; RESP 18; TEMP 36.8; O2SAT 98; BMI 22.5
--- NOTE | 2025-03-10 09:19 | CRLHL7_ITS ---
For Patients: As a result of the 21st Century Cures Act, medical imaging exams and procedure reports are released immediately into your electronic medical record. You may view this report before your referring provider. If you have questions, please contact your health care provider. INDICATION: No other history. COMPARISON: None available. TECHNIQUE: CT of the abdomen and pelvis with 72 cc of Isovue 370 intravenous contrast. Please note that all CT scans at this facility use dose modulation, iterative reconstruction, and/or weight-based dosing when appropriate to reduce radiation dose to as low as reasonably achievable. FINDINGS: ABDOMEN Liver: Normal contour and attenuation. No significant focal lesion. Scattered round circumscribed homogeneous low-attenuation findings consistent with cysts, the largest in the left hepatic lobe measuring 13 mm and 7 HU compatible with simple fluid. With regard to the smaller findings, no routine imaging surveillance or further workup is indicated in the absence of an established history malignancy and without significant underlying liver disease. No intrahepatic biliary ductal dilatation. Patent portal veins. Patent hepatic veins. Hepatic veins are not fully enhanced on this late hepatic arterial/early portal venous phase exam. Gallbladder: Normal size. No pericholecystic inflammatory changes. Normal common duct caliber. Pancreas: Normal contour and attenuation. No peripancreatic inflammatory changes. No significant focal lesion. Normal main duct caliber. Spleen: Not enlarged. No significant focal lesion. Patent splenic artery and vein. Adrenal Glands: Symmetrical adrenal glands. No significant focal lesion. Kidneys: Normal bilateral renal attenuation. No significant focal lesion. Uncomplicated bilateral renal cysts. No nephrolith. No dilatation of the intrarenal collecting systems. No ureteral stone. Nondilated ureters. Patent renal arteries and veins. Gastrointestinal tract: Normal caliber, attenuation and wall thickness of the gastrointestinal tract. No inflammatory changes. Normal small bowel mesentery. Unseen appendix without signs of acute appendicitis. Vascular: Chronic diffuse aortoiliac atherosclerotic mural calcification. Abdominal aorta and its major proximal branches including the celiac, superior mesenteric, inferior mesenteric, renal, and bilateral common iliac arteries are patent. Patent superior mesenteric vein. Peritoneal Cavity/Retroperitoneum: No ascites. No adenopathy. PELVIS No bladder lesion is identified. Hysterectomy. No significant ascites. No adenopathy. SKELETON AND BODY WALL Diffuse osteopenia. Well-maintained vertebral body heights. Grade 1 anterolisthesis of L5 on S1. Posterior interbody lumbar fusion at L4-L5. Lumbar levoscoliosis. LOWER THORAX Chronic diffuse severe right coronary atherosclerotic calcifications. Paramediastinal lingular subsegmental consolidation and traction bronchiectasis consistent with nonspecific minor fibrosis. IMPRESSION: 1. No findings to explain the history of lower abdominal and lower back pain. Clinical re-evaluation of follow-up are suggested. 2. Incidental findings as above. Please note that all CT scans at this facility use dose modulation, iterative reconstruction, and/or weight-based dosing when appropriate to reduce radiation dose to as low as reasonably achievable. Dictated by Stephan Lara MD @ 03/10/2025 10:48:01 AM (Electronically Signed)
[2025-03-10 09:22] LABS: Appearance Urine Clear (Clear)
--- NOTE | 2025-03-10 09:36 | ED.GENADULT ---
HPI - General Adult General Date Seen: 03/10/25 Chief complaint: Flank Pain Stated complaint: Back/abdominal pain Time Seen by Provider: 03/10/25 09:03 Source: patient Mode of arrival: ambulatory Limitations: no limitations History of Present Illness HPI narrative: Patient is a 69-year-old female presenting to the emergency department for bilateral low flank pain and lower abdominal pain. Pain began 2 days ago and started her bilateral flanks. She initially thought it was musculoskeletal pain but pain was not getting better even with her home pain medication. Pain is also radiating to her bilateral lower abdomen and describes the pain as a burning sensation. Pain is better when she lay still gets worse when she moves. She denies any chest pain or shortness of breath although she does have a history of coronary artery disease. She is a smoker. Denies fevers, chills, diarrhea, constipation, dysuria, hematuria, polyuria, headache, vision changes, weakness, numbness, lightheadedness. Denies having pain like this before. Denies any recent injuries. Has had previous low back surgery for spinal fusion with states that was a long time ago and she has not had any complications from that surgery. Denies any saddle anesthesia or urinary retention. Related Data Home Medications ?Medication ?Instructions ?Recorded ?Confirmed metoprolol succinate 100 mg 100 mg PO DAILY 07/22/23 03/10/25 tablet,extended release 24 hr atorvastatin 20 mg tablet 20 mg PO DAILY 05/18/24 03/10/25 clobetasol 0.05 % topical ointment 1 applic topical BID PRN 05/18/24 03/10/25 multivitamin 1 tab PO QAM 06/23/24 03/10/25 Previous Rx's ?Medication ?Instructions ?Recorded albuterol sulfate 2.5 mg/3 mL 2.5 mg (3 mL) NEB Q6H #20 ea 06/27/24 (0.083 %) solution for nebulization guaifenesin 600 mg tablet, 1,200 mg (2 x 600 mg) PO BID #10 06/27/24 extended release 12 hr (Mucinex) tabs ipratropium 0.5 mg-albuterol 3 mg 3 ml inhalation Q6H #20 ea 06/27/24 (2.5 mg base)/3 mL nebulization soln oseltamivir 75 mg capsule 75 mg PO Q12H 1 day #2 caps 06/27/24 Allergies Allergy/AdvReac Type Severity Reaction Status Date / Time Sulfa (Sulfonamide Allergy Severe Hives Verified 03/10/25 10:13 Antibiotics) hydromorphone (From Dilaudid) Allergy Intermediate Vomiting Verified 03/10/25 10:13 Cephalosporins Allergy Mild Verified 03/10/25 10:13 Review of Systems Status of ROS: Reports: 10 or more systems reviewed and unremarkable except as noted in History and below PFSH [facility] Medical History Osteoarthritis of left shoulder ?M19.012 - Primary osteoarthritis, left shoulder (ICD-10) Osteoarthritis of right shoulder ?M19.011 - Primary osteoarthritis, right shoulder (ICD-10) Osteopenia ?M85.80 - Other specified disorders of bone density and structure, unspecified site (ICD-10) Spontaneous pneumothorax ?J93.83 - Other pneumothorax (ICD-10) Palpitations ?R00.2 - Palpitations (ICD-10) Lichen sclerosus et atrophicus ?L90.0 - Lichen sclerosus et atrophicus (ICD-10) Angiodysplasia of colon ?K55.20 - Angiodysplasia of colon without hemorrhage (ICD-10) Depressive disorder ?F32.A - Depression, unspecified (ICD-10) Tobacco use disorder ?F17.200 - Nicotine dependence, unspecified, uncomplicated (ICD-10) Osteoporosis ?M81.0 - Age-related osteoporosis without current pathological fracture (ICD-10) COPD (chronic obstructive pulmonary disease) ?J44.9 - Chronic obstructive pulmonary disease, unspecified (ICD-10) Multiple thyroid nodules ?E04.2 - Nontoxic multinodular goiter (ICD-10) Lumbar facet arthropathy ?M47.816 - Spondylosis without myelopathy or radiculopathy, lumbar region (ICD-10) Lumbosacral radiculopathy at S1 ?M54.17 - Radiculopathy, lumbosacral region (ICD-10) Pulmonary collapse ?J98.19 - Other pulmonary collapse (ICD-10) Surgical History History of arthroplasty of right knee (08/13/23) ?Z96.651 - Presence of right artificial knee joint (ICD-10) History of appendectomy ?Z90.49 - Acquired absence of other specified parts of digestive tract (ICD-10) S/P right knee arthroscopy ?Z98.890 - Other specified postprocedural states (ICD-10) H/O spinal fusion ?Z98.1 - Arthrodesis status (ICD-10) H/O: hysterectomy ?Z90.710 - Acquired absence of both cervix and uterus (ICD-10) History of lung surgery ?Z98.890 - Other specified postprocedural states (ICD-10) Family History Mother Alcohol dependence Father Alcohol dependence Hodgkins disease Brother High blood pressure Social History Narrative: She lives with her in [facility] in a mobile home. She has about 4 steps to get in and then lives on 1 level. She does have space for her to use a walker. Her is visiting and is in a wheelchair himself. She works at [email or web address]. She smokes at least a pack of cigarettes a day. She does not drink alcohol. No recreational drug use. What is your current living situation?: I presently have a place to live Problems where you live: no known problems Problems where you live details: none In the past 12 months, utilities in danger of being shut off: no In past 12 months, lack of transportation kept you from medical appts, meetings, work, or getting things needed for daily living: no In the past 12 mos, have been you worried that your food would run out before you had money to buy more?: never true In the past 12 mos, the food you bought just didn't last and you didn't have money to buy more?: never true Highest level of school completed/degree received: high school graduate Smoking Status: Current every day smoker What tobacco products do you use: cigarettes Smoking packs per day: 1 Smoking cigarettes per day: 20.0 Years smoked: 51 Smoking pack-years: 51.00 Do you use any of these nicotine containing products: None Second hand tobacco smoke exposure: Yes How often do you have a drink containing alcohol: never How often do you have six or more drinks on one occasion: Never AUDIT-C Alcohol total score: 0 Non-prescribed substance use: denies use Caffeine: Yes (coffee) How often does anyone, including family, friends and others, physically hurt you: never How often does anyone, including family, friends and others, insult or talk down to you: never How often does anyone, including family, friends and others, threaten you with harm: never How often does anyone, including family, friends and others, scream or curse at you: never Are you using contraception or practicing any form of control: No service: No Exam Narrative: Exam Narrative: Const: Well-nourished, Well-developed, in mild to moderate distress Eyes: No conjunctival injection, and symmetrical lids HENT: Atraumatic external nose and ears. Moist mucous membranes. Neck: Symmetric, trachea midline, No thyromegaly. CVS: RRR, No murmurs or gallops. Peripheral pulses 2+ and equal in all extremities RESP: Unlabored respiratory effort. Clear to auscultation bilaterally. GI: Nontender/Nondistended, No rebound or guarding. MSK:Extremities w/o deformity, Normal Active ROM Skin: Warm, Dry. No rashes or lesions. Neuro: Normal Muscle tone, No focal neurological deficits. Psych: Awake, Alert, & Oriented x3. Appropriate mood and affect. Const: Vital Signs, click to edit/add: Vital Signs - 24 hr 03/10/25 08:51 03/10/25 10:15 03/10/25 10:22 Temperature 98.2 F Pulse Rate 78 Pulse Rate [Right Pulse Oximeter] 86 Respiratory Rate 18 12 22 Blood Pressure 143/84 H Blood Pressure [Ri ght Upper Arm] 137/88 Pulse Oximetry 98 95 Oxygen Delivery Me thod Room Air 03/10/25 10:30 Temperature Pulse Rate 78 Pulse Rate [Right Pulse Oximeter] Respiratory Rate 18 Blood Pressure Blood Pressure [Ri ght Upper Arm] Pulse Oximetry 98 Oxygen Delivery Me thod Course Vital Signs Vital signs: Initial Vital Signs Temperature 98.2 F 03/10/25 08:51 Temperature Source Temporal Artery Scan 03/10/25 08:51 Pulse Rate 86 03/10/25 08:51 Pulse Rhythm Regular 03/10/25 08:51 Pulse Strength 3+ Normal 03/10/25 08:51 Respiratory Rate 18 03/10/25 08:51 Blood Pressure 137/88 03/10/25 08:51 Blood Pressure Mean 104 03/10/25 08:51 Blood Pressure Position Sitting 03/10/25 08:51 Pulse Oximetry 98 03/10/25 08:51 Oxygen Delivery Method Room Air 03/10/25 08:51 Vital Signs Temperature 98.2 F 03/10/25 08:51 Pulse Rate 86 03/10/25 08:51 Respiratory Rate 18 03/10/25 08:51 Blood Pressure 137/88 03/10/25 08:51 Pulse Oximetry 98 03/10/25 08:51 Oxygen Delivery Method Room Air 03/10/25 08:51 Temperature 98.2 F 03/10/25 08:51 Pulse Rate 78 03/10/25 10:30 Respiratory Rate 18 03/10/25 10:30 Blood Pressure 143/84 H 03/10/25 10:22 Pulse Oximetry 98 03/10/25 10:30 Oxygen Delivery Method Room Air 03/10/25 08:51 Medical Decision Making [facility] Narrative Medical decision making narrative: Patient is a 69-year-old female presenting for low back and abdominal pain. She is a smoker surgical some concern for a AAA. Although this does seem most likely musculoskeletal in nature considering the worsening pain with movements. Could also be cystitis. Seems very unlikely to bilateral nephrolithiasis. With her history and age will also do an EKG and troponin. CBC, CMP, urinalysis all ordered. CT scan with IV contrast ordered. Is not having any red flag symptoms. Lab work returned showing no acute concerning abnormalities. Her sodium was 129 which is roughly around her baseline. CT scan returned showing no acute concerning abnormalities. EKG and troponin shows no concerning abnormalities. Concerning neck the symptoms I do not believe repeat troponin is necessary. At this time her pain seems most likely musculoskeletal in nature and she is safe for discharge. Lab Data Labs: Lab Results 03/10/25 03/10/25 03/10/25 Range/Units 09:19 09:30 Unknown WBC 8.36 (4.50-11.00) K/uL RBC 4.07 (4.00-5.20) m/uL Hgb 12.7 (12.0-16.0) gm/dL Hct 38.1 (33.0-51.0) % MCV 94 (80-100) fL MCH 31 (26-34) pg MCHC 33 (32-36) gm/dL RDW Coeff of Reynaldo 14.0 (11.5-15.5) % Plt Count 372 (140-440) K/uL Neut % (Auto) 62.8 (42.0-72.0) % Lymph % (Auto) 22.8 (20-44) % [place] % (Auto) 9.8 (0.0-11.0) % Eos % (Auto) 3.9 (0.0-7.0) % Baso % (Auto) 0.6 (0.0-3.0) % Neut # (Auto) 5.24 (1.7-7.0) K/uL Lymph # (Auto) 1.91 (0.90-2.90) K/uL Hopkins # (Auto) 0.80 (0.00-0.90) K/UL Eos # (Auto) 0.33 (0.00-0.50) K/uL Baso # (Auto) 0.05 (0.00-0.30) K/uL Abs Immat Gran (auto) 0.01 (0.00-0.30) K/uL Imm/Tot Granulo (auto) 0.1 % Sodium 129 L (135-149) mmol/L Potassium 4.4 (3.6-5.1) mmol/L Chloride 99 (96-114) mmol/L Carbon Dioxide 24 (20-32) mmol/L Anion Gap 6 L (7-15) mEq/L BUN 9 (7-30) mg/dL Creatinine 0.6 (0.5-1.5) mg/dL Estimated Creat Clear 54.32 Estimated GFR 98 ml/min Glucose 101 (60-115) mg/dL Calcium 9.3 (8.4-10.6) mg/dL Total Bilirubin 0.3 (0.1-1.5) mg/dL AST 30 (12-35) U/L ALT 19 (4-35) U/L Alkaline Phosphatase 95 (40-150) U/L Total Protein 6.9 (6.0-8.3) g/dL Albumin 4.3 (3.3-5.0) g/dL Urine Color Yellow (Yellow) Urine Appearance Clear (Clear) Urine pH 7.0 (5.0-8.5) Ur Specific [place] 1.015 (1.000-1.030) Urine Protein Negative (Negative) Urine Glucose (UA) Negative (Negative) Urine Ketones Negative (Negative) Urine Blood Negative (Negative) Urine Nitrite Negative (Negative) Urine Bilirubin Negative (Negative) Urine Urobilinogen 0.2 (0.2-1.0) Ur Leukocyte Esterase Negative (Negative) Urine RBC 0-2 (0-2) Urine WBC 0-2 (0-5) Ur Squamous Epith Cells Few (None-Few) Urine Bacteria Few A (None) POC Creatinine 0.7 (0.6-1.3) mg/dl POC Troponin I 0.01 (0.01-0.04) ng/ml Imaging Data CT scan abdomen and pelvis: Attestation: I have reviewed the pertinent imaging results. Radiologist's impression: 1. No findings to explain the history of lower abdominal and lower back pain. Clinical re-evaluation of follow-up are suggested. 2. Incidental findings as above. Please note that all CT scans at this facility use dose modulation, iterative reconstruction, and/or weight-based dosing when appropriate to reduce radiation dose to as low as reasonably achievable. Dictated by Stephan Lara MD @ 03/10/2025 10:48:01 AM ECG Data Attestation: I personally reviewed and interpreted this ECG as follows: Prior ECG tracings: available for review Interpretation: Normal sinus rhythm with a rate of 76 beats per minute, normal intervals, normal axis, no ST or T-wave abnormalities. Previous EKGs have shown AFib and STEMI. Current EKG does look similar to EKG from 06/24/2024. Discharge Plan Discharge Clinical Impression: Low back pain Qualifiers: Chronicity: acute Back pain laterality: bilateral Sciatica presence: without sciatica Qualified Code(s): M54.50 - Low back pain, unspecified Patient Disposition: Home, Self-Care Condition: Stable Instructions: Acute Low Back Pain (ED) Additional Instructions: Take your previously prescribed home pain medications. If pain persist follow-up with the primary care provider. Return to emergency department for new or worsening symptoms. Prescriptions: No Action multivitamin Tablet 1 tab PO QAM metoprolol succinate 100 mg tablet extended release 24 hr 100 mg PO DAILY atorvastatin 20 mg tablet 20 mg PO DAILY clobetasol 0.05 % ointment 1 applic topical BID PRN ipratropium-albuterol 0.5 mg-3 mg(2.5 mg base)/3 mL Solution For Nebulization 3 ml inhalation Q6H Qty: 20 0RF albuterol sulfate 2.5 mg /3 mL (0.083 %) Solution For Nebulization 2.5 mg NEB Q6H Qty: 20 0RF oseltamivir 75 mg Capsule 75 mg PO Q12H 1 Days Qty: 2 0RF guaifenesin [Mucinex] 600 mg Tablet Extended Release 12hr 1,200 mg PO BID Qty: 10 0RF Follow Up/Referrals: Melania Bishop DO [Primary Care Provider, Family Practice] Stand Alone Forms: MyHealth Info Instructions
[2025-03-10 09:41] LABS: Creatinine, Point-of-Care* 0.7 mg/dl (0.6-1.3)
[2025-03-10 09:42] LABS: Hematocrit* 38.1 % (33.0-51.0); Hemoglobin* 12.7 gm/dL (12.0-16.0); Immature Granulocytes Abs Auto 0.01 K/uL (0.00-0.30); Immature Granulocytes Pct Auto 0.1 %; Lymphocytes Absolute Auto 1.91 K/uL (0.90-2.90); Mean Corpuscular HGB Conc 33 gm/dL (32-36); Mean Corpuscular Hemoglobin 31 pg (26-34); Mean Corpuscular Volume 94 fL (80-100); RDW Coefficient of Variation % 14.0 % (11.5-15.5); Red Blood Count* 4.07 m/uL (4.00-5.20); White Blood Count* 8.36 K/uL (4.50-11.00)
[2025-03-10 09:44] LABS: Troponin, Point-of-Care* 0.01 ng/ml (0.01-0.04)
[2025-03-10 09:50] LABS: Slide Review Reflex No
[2025-03-10 09:58] LABS: Albumin* 4.3 g/dL (3.3-5.0); Chloride* 99 mmol/L (96-114); Potassium* 4.4 mmol/L (3.6-5.1); Sodium* 129 mmol/L (135-149)
[2025-03-10 10:01] LABS: Alanine Aminotransferase* 19 U/L (4-35); Alkaline Phosphatase* 95 U/L (40-150); Anion Gap 6 mEq/L (7-15); Aspartate Amino Transferase* 30 U/L (12-35); Bilirubin Total* 0.3 mg/dL (0.1-1.5); Blood Urea Nitrogen* 9 mg/dL (7-30); Calcium* 9.3 mg/dL (8.4-10.6); Carbon Dioxide* 24 mmol/L (20-32); Creatinine* 0.6 mg/dL (0.5-1.5); Est. Creatinine Clearance* 54.32; Estimated Glomerular Filt Rate 98 ml/min; Glucose* 101 mg/dL (60-115); Total Protein* 6.9 g/dL (6.0-8.3)
[2025-03-10 10:15] VITALS: RESP 12
[2025-03-10 10:22] VITALS: BP 143/84; PULSE 78; RESP 22; O2SAT 95
[2025-03-10 10:30] VITALS: PULSE 78; RESP 18; O2SAT 98
== END 2025-03-10 11:00 | disposition home or self-care (01) ==
PROVIDERS: Emergency Provider Student in an Organized Health Care Education/Training Program; PCP Family Medicine
DX: M54.50 Low back pain, unspecified (principal); R10.9 Unspecified abdominal pain
CPT/HCPCS: 36415; 74177; 80053; 81001; 82565; 84484; 85025; 87086; 93005; 99284; 99285; Q9967